=== PATIENT | male | born 1945 | race Caucasian/White ===

== ENCOUNTER → 2017-05-20 07:09 | Outpatient (CLI) | payer OTHER, SELFPAY ==
--- NOTE | 2017-05-20 07:23 | CT_ITS ---
STUDY: CT ABDOMEN AND PELVIS WITH AND WITHOUT CONTRAST REASON FOR EXAM: Male, 72 years old. Gross hematuria. Prior prostatectomy. RADIATION DOSAGE (If Supplied By Facility): CTDIvol = ( 19.66 ) mGy, DLP = ( 1839.60 ) mGycm TECHNIQUE: Transaxial images were obtained from the dome of the diaphragm to the symphysis pubis without oral contrast. 100 ml of Isovue 300 contrast was administered. Sagittal and coronal images were reconstructed. Individualized dose optimization techniques were used for this CT. COMPARISON: Comparison is made with prior examination dated June 23, 2012. FINDINGS: Minimal degree of bibasilar linear scarring. The visualized portions of the heart are within normal limits. A catheter is seen in the subcutaneous tissues overlying the plantar aspect of the thorax and abdominal wall entering the peritoneal cavity with the distal tip in the right hemipelvis.. This may represent a ventricular peritoneal shunt. There is a 1.4 cm x 2.4 cm well-defined rounded hypodensity in the peripheral superior aspect of the dome of the right lobe of liver. This was not present on prior examination. Stable small hepatic cysts. Multiple small gallstones are seen along the dependent portion of the gallbladder. Normal spleen. Normal pancreas. Normal bilateral adrenal glands. There is a 6.3 mm nonobstructive calculus in the midportion of the right kidney. A 2 mm calculus is seen in the inferior pole of the right kidney. Normal left kidney. Normal visualized stomach. Normal small intestine. There are multiple colonic diverticula consistent with diverticulosis. The appendix is visualized and appears normal. There is diffuse atherosclerotic calcification of the abdominal aorta and its major visceral branches, without a demonstrated aneurysm. Normal inferior vena cava. Normal retroperitoneum. Normal urinary bladder. There are prostatic calcifications. There is a right-sided inguinal hernia containing adipose tissue. There are degenerative changes of the visualized lumbar spine. Stable anterior listhesis of L4 on L5 without spondylolysis. CT/CT Abd/Pelvis W/WO Contrast IMPRESSION: Hepatic cysts. Nonobstructive right intrarenal calculi. Small gallstones. Electronically Signed: Arie Silva MD at 12:35 EST Tel [phone], Service support ,
[2017-05-20 07:41] LABS: CREATININE FINGERSTICK 1.1 mg/dL (0.70-1.30); EGFR FINGERSTICK > 60.0000 mL/min (>60)
== END ==
PROVIDERS: Family Provider Family Medicine; PCP Family Medicine; Visit Provider Nurse Practitioner Adult Health
DX: R31.0 Gross hematuria (principal)
CPT/HCPCS: 74178; Q9967

== ENCOUNTER → 2017-05-20 07:54 | Outpatient (CLI) | payer OTHER, SELFPAY ==
[2017-05-20 09:27] LABS: AST(SGOT) 20 U/L (15-37); Alanine Aminotransfer ALT/SGPT 32 U/L (16-61); Albumin, Serum 2.9 g/dL (3.2-5.0); Alkaline Phosphatase 145 U/L (45-117); Cholesterol 110 mg/dL (200); High Density Lipoprotein 36 mg/dL; PSA,Total- Diagnostic 0.05 ng/mL (0.0-4.0); Protein, Total 6.9 g/dL (6.4-8.2); Triglycerides 107 mg/dL; Very Low Density Lipoprotein 21 mg/dL (5-40)
== END ==
PROVIDERS: Physician Assistant Medical; Family Provider Family Medicine; PCP Family Medicine; Visit Provider Psychiatry & Neurology Neurology
DX: G60.3 Idiopathic progressive neuropathy (principal); G62.9 Polyneuropathy, unspecified; R53.83 Other fatigue; R73.9 Hyperglycemia, unspecified; Z12.5 Encounter for screening for malignant neoplasm of prostate
CPT/HCPCS: 36415; 80061; 80076; 84153

== ENCOUNTER 2017-07-05 08:22 | Day surgery (SDC) | payer OTHER, SELFPAY ==
[2017-07-05 08:47] VITALS: BP 125/74; PULSE 73; RESP 18; TEMP 36.4; O2SAT 94; BMI 34.6
--- NOTE | 2017-07-05 09:30 | RAD_ITS ---
STUDY: X-RAY - ABDOMEN/PELVIS REASON FOR EXAM: Male, 72 years old. History of kidney stone. TECHNIQUE: Two AP supine views of the abdomen and pelvis. COMPARISON: None. FINDINGS: A ventriculoperitoneal shunt tube is seen with the tip in the pelvis. There is an abundance of fecal material throughout the colon. There is a 6.3 mm calculus in the midportion of the right kidney. Normal soft tissue structures. There are diffuse degenerative changes of the visualized lumbar spine. Dextroscoliosis. RAD/Abdomen Single View IMPRESSION: 6.3 mm calculus in the midportion of the right kidney. Large amount of fecal material is seen in the colon. Electronically Signed: Arie Silva MD at 10:31 EDT Tel [phone], Service support ,
[2017-07-05] MEDS: Cefazolin 2 GM in 0.9% Normal Saline 100 ML IV (10:44)
--- NOTE | 2017-07-05 11:33 | PCM.IMDPSTOP ---
Immediate Post-Op Note Date of Procedure: 07/05/17 Primary Surgeon/Physician: Doyle Arizmendi afternoon babysitter: None Pre-Operative Diagnosis: Right ureteral and renal lithiasis, OAB Post-Operative Diagnosis: same Surgery/Procedure Performed:: cysto, Botox injection 100 IU's, Rt retro grade and ESWL of renal and ureteral stone Description of Surgical Findings:: as above Estimated Blood Loss: minimal Specimen's removed: none Drains: none Type of Anesthesia:: General - LMA Maegan Sacledo - Admit VTE Documentation VTE Present on Admission: No VTE Mechan Device Prophylaxis: SCD's VTE Pharm Prophylaxis ordered?: No
--- NOTE | 2017-07-05 11:36 | OP.PN_ITS ---
Immediate Post-Op Note Date of Procedure: 07/05/17 Primary Surgeon/Physician: Doyle Arizmendi parachute mender: None Pre-Operative Diagnosis: Right ureteral and renal lithiasis, OAB Post-Operative Diagnosis: same Surgery/Procedure Performed:: cysto, Botox injection 100 IU's, Rt retro grade and ESWL of renal and ureteral stone Description of Surgical Findings:: as above Estimated Blood Loss: minimal Specimen's removed: none Drains: none Type of Anesthesia:: General - LMA Maegan Salcedo - Admit VTE Documentation VTE Present on Admission: No VTE Mechan Device Prophylaxis: SCD's VTE Pharm Prophylaxis ordered?: No
--- NOTE | 2017-07-05 11:36 | PCM.DC.URO ---
Discharge Diet: No Restrictions - ENCOURAGE FLUIDS FOR FEW DAYS Discharge Activity: Return to Normal Activity, May Shower, - - EXPECT BLOOD IN URINE Call your doctor if your incision/area has: Foul Smelling Discharge Call your doctor if you observe: Fever of 101 or Higher, Inability to urinate Allergies/Adverse Reactions: Allergies lisinopril Adverse Reaction (Verified 06/19/17 08:54) Other Medications to take at Discharge Cyclobenzaprine [Flexeril] 10 mg PO TID PRN PRN 08/10/15 Ropinirole HCl [Requip] 3 mg PO 4X/DAY PRN 08/10/15 Ropinirole HCl [Ropinirole ER] 8 mg PO QHS 08/10/15 Carbidopa/Levodopa 25/100 [Sinemet] 1 - 2 tab PO QHS 10/10/16 Dutasteride [Avodart] 0.5 mg PO DAILY 10/10/16 Ibuprofen 600 mg PO PRN PRN 10/10/16 Pramipexole Di-HCl [Mirapex] 0.5 mg PO PRN PRN 10/10/16 Trospium Chloride [Sanctura] 20 mg PO DAILY 10/10/16 aspirin 81 mg tablet,delayed release 81 mg PO QDAY tab 06/17/17 nitroglycerin 0.4 mg sublingual tablet 0.4 mg SUBLINGUAL Q5M PRN 06/17/17 duloxetine 30 mg capsule,delayed release 60 mg PO DAILY cap 06/19/17 gabapentin 800 mg tablet PO 30 Days #60 06/19/17 atorvastatin 80 mg tablet 80 mg PO QHS #90 tab 06/25/17 carvedilol 12.5 mg tablet 12.5 mg PO BID #180 tab 06/25/17 isosorbide mononitrate 20 mg tablet 20 mg PO DAILY #90 tab 06/25/17 niacin (inositol niacinate) 500 mg capsule 500 mg PO DAILY #90 ea 06/25/17 Primary Care Physician: Darnell Bryant [Primary Care Provider] - Please Follow Up With: Jonnie High MD - [phone] When: CALL SOON FOR AN APPT IN FEW WEEKS When: [phone] TO PAGE
--- NOTE | 2017-07-05 12:04 | DCINST_ITS ---
Discharge Diet: No Restrictions - ENCOURAGE FLUIDS FOR FEW DAYS Discharge Activity: Return to Normal Activity, May Shower, - - EXPECT BLOOD IN URINE Call your doctor if your incision/area has: Foul Smelling Discharge Call your doctor if you observe: Fever of 101 or Higher, Inability to urinate Allergies/Adverse Reactions: Allergies lisinopril Adverse Reaction (Verified 06/19/17 08:54) Other Medications to take at Discharge Cyclobenzaprine [Flexeril] 10 mg PO TID PRN PRN 08/10/15 Ropinirole HCl [Requip] 3 mg PO 4X/DAY PRN 08/10/15 Ropinirole HCl [Ropinirole ER] 8 mg PO QHS 08/10/15 Carbidopa/Levodopa 25/100 [Sinemet] 1 - 2 tab PO QHS 10/10/16 Dutasteride [Avodart] 0.5 mg PO DAILY 10/10/16 Ibuprofen 600 mg PO PRN PRN 10/10/16 Pramipexole Di-HCl [Mirapex] 0.5 mg PO PRN PRN 10/10/16 Trospium Chloride [Sanctura] 20 mg PO DAILY 10/10/16 aspirin 81 mg tablet,delayed release 81 mg PO QDAY tab 06/17/17 nitroglycerin 0.4 mg sublingual tablet 0.4 mg SUBLINGUAL Q5M PRN 06/17/17 duloxetine 30 mg capsule,delayed release 60 mg PO DAILY cap 06/19/17 gabapentin 800 mg tablet PO 30 Days #60 06/19/17 atorvastatin 80 mg tablet 80 mg PO QHS #90 tab 06/25/17 carvedilol 12.5 mg tablet 12.5 mg PO BID #180 tab 06/25/17 isosorbide mononitrate 20 mg tablet 20 mg PO DAILY #90 tab 06/25/17 niacin (inositol niacinate) 500 mg capsule 500 mg PO DAILY #90 ea 06/25/17 Primary Care Physician: Darnell Bryant [Primary Care Provider] - Please Follow Up With: Jonnie High MD - [phone] When: CALL SOON FOR AN APPT IN FEW WEEKS When: [phone] TO PAGE
--- NOTE | 2017-07-05 12:06 | PCM.OP.BLANK ---
Operative Report Date of Procedure: 07/05/17 72-year-old male with gross hematuria, OAB, found to have ureteral and renal stone on the right. Here for resolution of all of the above problems. Procedure patient taken the operative is placed under general anesthesia per LMA by Dr. Salcedo and Robinson mendoza. He been preloaded with antibiotics. He is placed on the ESWL unit placed under general anesthesia per LMA. Is then placed lithotomy position prepped and draped in sterile technique. Cystoscopic exam showed a normal urethra. Once inside the bladder the bladder was drained urine was fairly clear. Botox was injected injected into the tracer muscle him to areas 1 cc each total of 100 IUs. At this point ESWL to be performed was able to visualize a stone on the right however the one on the in the ureter had dropped to distally. Subsequently doing cystoscopy stent was then placed on the right and was able to visualize a stone in be able to reach the lower ureteral stone with ESWL at this point the first stone was on the renal kidney was performed ESWL with this broken up and then attention was turned to the ureter the patient was moved and positioned so that this is reached in with 2000 shocks stone was essentially absent subsequent procedures. At this point stent was removed and patient was taken to recovery in stable condition. That is on this dictation on Devonte Martins
[2017-07-05 12:11] VITALS: BP 125/75; BP 158/93; PULSE 81; RESP 20; TEMP 36.1; O2SAT 100
[2017-07-05 12:15] VITALS: BP 125/75; BP 152/84; PULSE 76; RESP 18; O2SAT 99
[2017-07-05 12:30] VITALS: BP 125/75; BP 149/90; PULSE 74; RESP 18; O2SAT 97
[2017-07-05 12:38] VITALS: BP 125/75; BP 146/86; PULSE 74; RESP 18; TEMP 36.1; O2SAT 97
[2017-07-05 13:20] VITALS: BP 125/75
== END 2017-07-05 13:37 | disposition home or self-care (01) ==
LOC: SDC 08:24 → AC 08:24
PROVIDERS: Family Provider Family Medicine; PCP Family Medicine; Visit Provider Urology
PROC: (CPT 50590; principal; 2017-07-05 10:40)
DX: N20.2 Calculus of kidney with calculus of ureter (principal); N32.81 Overactive bladder; N39.41 Urge incontinence; Z79.899 Other long term (current) drug therapy; Z95.1 Presence of aortocoronary bypass graft; I10 Essential (primary) hypertension; Z86.14 Personal history of Methicillin resistant Staphylococcus aureus infection; M19.90 Unspecified osteoarthritis, unspecified site; R31.0 Gross hematuria; Z79.82 Long term (current) use of aspirin; I25.2 Old myocardial infarction; G25.81 Restless legs syndrome; E78.00 Pure hypercholesterolemia, unspecified
CPT/HCPCS: 50590; 52287; 74018; J7120; J0585; J2405

== ENCOUNTER → 2017-07-17 08:06 | Outpatient (CLI) | payer OTHER, SELFPAY ==
--- NOTE | 2017-07-17 08:09 | RAD_ITS ---
STUDY: X-RAY - ABDOMEN/PELVIS REASON FOR EXAM: Male, 72 years old. Prior kidney stone removal. TECHNIQUE: Two AP supine views of the abdomen and pelvis. COMPARISON: Comparison is made with prior examination of July 05, 2017. FINDINGS: A ventricular peritoneal shunt tube is in situ. The distal tip is in the pelvis. There is an abundance of fecal material throughout the colon. The visualized liver, spleen and kidneys are grossly normal in size and morphology. Normal soft tissue structures. Mild dextroscoliosis. RAD/Abdomen Single View IMPRESSION: Large amount of fecal material is seen in the colon. No abnormal calcification is seen overlying the kidney or course of the ureters. Electronically Signed: Arie Silva MD at 10:38 EDT Tel [phone], Service support ,
== END ==
PROVIDERS: Family Provider Family Medicine; PCP Family Medicine; Visit Provider Urology
DX: N20.0 Calculus of kidney (principal)
CPT/HCPCS: 74018

== ENCOUNTER → 2017-12-03 04:00 | Outpatient (REF) | payer OTHER, SELFPAY ==
[2017-12-03 09:38] LABS: Absolute Lymphocyte Count 2.49 X10^3/ul (0.83-4.51); Absolute Neutrophil Count 9.1 X10^3/uL (2.0-7.7); Basophil# 0.06 X10^3/uL; Basophil% 0.4 % (0-1); Eosinophil# 1.04 X10^3/uL; Eosinophils% 7.1 % (0-5); Hematocrit 28.7 % (40-54); Lymphocyte # 2.49 X10^3/ul (4.0); Lymphocyte % 17.1 % (19-41); Mean Corp Hgb Conc 31.4 g/gl (32-36); Mean Corpuscular Hgb 28.6 pg (27.0-32.0); Mean Corpuscular Volume 91.1 fL (80-94); Mean Platelet Vol. 8.7 fl (6.2-12.0); Monocyte# 1.46 X10^3/uL; Neutrophil # 9.09 X10^3/uL (2.7-7.7); Neutrophil % 62.6 % (47-70); Platelet Count 372 K/mm3 (150-450); RBC Distribution Width CV 14.8 % (11.6-14.6); RBC Distribution Width SD 48.7 fl (35.1-43.9); Red Blood Count 3.15 M/mm3 (4.6-6.2); White Blood Count 14.6 K/mm3 (4.4-11.0)
[2017-12-03 09:41] LABS: Anion Gap 10 (5-15); BUN 16 mg/dL (7-18); BUN/Creat Ratio 24.8 RATIO (10-20); Calcium,Total 7.9 mg/dL (8.5-10.1); Chloride 105 mmol/L (98-107); Creatinine, Serum 0.65 mg/dL (0.70-1.30); EST Glomerular Filtration Rate 130 mL/min (>60); Est Glom Filt Rate - Afr Amer 157 mL/min (>60); Glucose 96 mg/dL (74-106); Potassium 3.7 mmol/L (3.5-5.1); Sodium Level 140 mmol/L (136-145)
[2017-12-03 09:46] LABS: POSITIVE COUNT YES; POSITIVE DIFFERENTIAL NO; POSITIVE MORPHOLOGY YES
[2017-12-05 14:16] LABS: Pathologist Review Reviewed
== END ==
LOC: OLS.AVED 04:00
PROVIDERS: Visit Provider Family Medicine
DX: D64.9 Anemia, unspecified (principal); R53.83 Other fatigue; I10 Essential (primary) hypertension
CPT/HCPCS: 36415; 80048; 85025

== ENCOUNTER → 2017-12-17 07:25 | Outpatient (REF) | payer OTHER, SELFPAY ==
[2017-12-17 09:50] LABS: Absolute Lymphocyte Count 2.65 X10^3/ul (0.83-4.51); Absolute Neutrophil Count 6.6 X10^3/uL (2.0-7.7); Basophil# 0.03 X10^3/uL; Basophil% 0.3 % (0-1); Eosinophil# 0.34 X10^3/uL; Eosinophils% 3.2 % (0-5); Hematocrit 39.1 % (40-54); Hemoglobin 11.8 g/dl (13.0-16.5); Lymphocyte # 2.65 X10^3/ul (4.0); Lymphocyte % 25.1 % (19-41); Mean Corp Hgb Conc 30.2 g/gl (32-36); Mean Corpuscular Hgb 28.4 pg (27.0-32.0); Mean Corpuscular Volume 94.2 fL (80-94); Mean Platelet Vol. 8.9 fl (6.2-12.0); Monocyte# 0.92 X10^3/uL; Monocyte% 8.7 % (0-10); Neutrophil % 62.5 % (47-70); Platelet Count 360 K/mm3 (150-450); RBC Distribution Width CV 16.2 % (11.6-14.6); Red Blood Count 4.15 M/mm3 (4.6-6.2); White Blood Count 10.6 K/mm3 (4.4-11.0)
[2017-12-17 09:51] LABS: POSITIVE COUNT NO; POSITIVE DIFFERENTIAL NO; POSITIVE MORPHOLOGY NO
[2017-12-17 09:52] LABS: Anion Gap 9 (5-15); BUN 18 mg/dL (7-18); BUN/Creat Ratio 23.6 RATIO (10-20); Calcium,Total 8.7 mg/dL (8.5-10.1); Chloride 105 mmol/L (98-107); Creatinine, Serum 0.76 mg/dL (0.70-1.30); EST Glomerular Filtration Rate 107 mL/min (>60); Est Glom Filt Rate - Afr Amer 130 mL/min (>60); Glucose 93 mg/dL (74-106); Potassium 4.3 mmol/L (3.5-5.1); Sodium Level 140 mmol/L (136-145)
== END ==
LOC: OLS.AVED 07:25
PROVIDERS: Visit Provider Family Medicine
DX: D64.9 Anemia, unspecified (principal); R53.83 Other fatigue; I10 Essential (primary) hypertension
CPT/HCPCS: 36415; 80048; 85025

== ENCOUNTER 2018-02-07 07:03 | Day surgery (SDC) | payer OTHER, SELFPAY ==
[2018-02-07] VITALS (10 sets, daily range): BP systolic 84–121; BP diastolic 51–79; PULSE 72–78; RESP 11–16; TEMP 36.2–36.6; O2SAT 95–100; BMI 34.4
--- NOTE | 2018-02-07 09:46 | DCINST_ITS ---
Discharge Diet: Light diet - advance as tolerated Discharge Activity: May not drive while taking narcotic pain medications., May Shower Instructions: OnabotulinumtoxinA Solution for injection Allergies/Adverse Reactions: Allergies lisinopril Adverse Reaction (Verified 01/31/18 14:45) Other Medications to take at Discharge Cyclobenzaprine [Flexeril] 10 mg PO TID PRN PRN 08/10/15 Ropinirole HCl [Requip] 3 mg PO 4X/DAY PRN 08/10/15 Ropinirole HCl [Ropinirole ER] 8 mg PO QHS 08/10/15 Carbidopa/Levodopa 25/100 [Sinemet] 1 - 2 tab PO QHS 10/10/16 Dutasteride [Avodart] 0.5 mg PO DAILY 10/10/16 Ibuprofen 600 mg PO PRN PRN 10/10/16 Pramipexole Di-HCl [Mirapex] 0.5 mg PO PRN PRN 10/10/16 Trospium Chloride [Sanctura] 20 mg PO DAILY 10/10/16 aspirin 81 mg tablet,delayed release 81 mg PO QDAY tab 06/17/17 nitroglycerin 0.4 mg sublingual tablet 0.4 mg SUBLINGUAL Q5M PRN 06/17/17 duloxetine 30 mg capsule,delayed release 60 mg PO DAILY cap 06/19/17 gabapentin 800 mg tablet 800 mg PO QHS 30 Days #60 06/19/17 atorvastatin 80 mg tablet 80 mg PO QHS #90 tab 06/25/17 carvedilol 12.5 mg tablet 12.5 mg PO BID #180 tab 06/25/17 isosorbide mononitrate 20 mg tablet 20 mg PO DAILY #90 tab 06/25/17 niacin (inositol niacinate) 500 mg capsule 500 mg PO DAILY #90 ea 06/25/17 losartan 50 mg tablet 50 mg PO QDAY #90 tab 10/29/17 Primary Care Physician: Darnell Bryant [Primary Care Provider] - Test Results: Test results from this visit will be discussed in further detail at your follow- up appointment, if applicable. Please Follow Up With: Jonnie High MD When: in 4 weeks, please call to make an appointment.
[2018-02-07] MEDS: Lidocaine Jelly 2% 20 ML Syringe (URO-JET) 20 APPLIC (09:52)
--- NOTE | 2018-02-07 10:00 | OP.PCM_ITS ---
Report of Operation Date of Procedure: 02/07/18 Pre-Operative Diagnosis: Overactive bladder and urgency Post-Operative Diagnosis: Same Surgery/Procedure Performed:: Cystoscopy injection of Botox in the bladder 150 units Description of Surgical Findings:: 72-year-old male was taken back to the operating room after smooth induction of MAC local he is placed in dorsal lithotomy position, the penis and testicles are prepped and draped in usual sterile fashion, the penis was uncircumcised, infiltrated like lidocaine jelly into the urethra, I then went into the urethra with a 21 [place] rigid cystourethroscope, the entire length the urethra is normal, the sphincter was intact, he did have a well resected prostate but no obstructive tissue, inside the bladder was mild to moderate trabeculation throughout the bladder the trigone was normal, no tumors no tumors or stones are seen within the bladder the mucosa was normal. I then had 150 units of Botox prepared in the back table injected the first half of that with syringe about half a mL in each site injected at about 15 site in the back of the bladder and then the second half of the aliquot of Botox was injected another 15 sites in the back of the bladder after the completion of the injection of Botox in the bladder we used 150 units of Botox for the complete injection the bladder was drained the anesthetic is currently being reversed plan to see him back in about a month for checkup. Type of Anesthesia:: General Drains: none - Admit VTE Documentation VTE Present on Admission: No VTE Mechan Device Prophylaxis: SCD's
[2018-02-07] MEDS: Cefazolin 2 GM in 0.9% Normal Saline 100 ML IV (10:08)
== END 2018-02-07 11:29 | disposition home or self-care (01) ==
LOC: SDC 07:04 → AC 07:06 → ACINP 07:26 → AC 07:27
PROVIDERS: Family Provider Family Medicine; PCP Family Medicine; Referring Provider Urology; Visit Provider Urology
PROC: 3E0K8GC Introduction of Other Therapeutic Substance into Genitourinary Tract, Via Natural or Artificial Opening Endoscopic (ICD-10-PCS; CPT 52287; principal; 2018-02-07 09:25)
DX: N32.81 Overactive bladder (principal); R39.15 Urgency of urination; N32.89 Other specified disorders of bladder; I10 Essential (primary) hypertension; I25.2 Old myocardial infarction; Z95.1 Presence of aortocoronary bypass graft; Z79.899 Other long term (current) drug therapy; Z79.82 Long term (current) use of aspirin; G25.81 Restless legs syndrome; G91.9 Hydrocephalus, unspecified; Z98.2 Presence of cerebrospinal fluid drainage device; E78.00 Pure hypercholesterolemia, unspecified; M15.0 Primary generalized (osteo)arthritis; I25.9 Chronic ischemic heart disease, unspecified
CPT/HCPCS: 52287; J7120; J0585; J3490

== ENCOUNTER → 2018-05-29 08:46 | Outpatient (CLI) | payer OTHER, SELFPAY ==
[2018-05-26 13:15] VITALS: BMI 36.6
[2018-05-29 09:50] LABS: AST(SGOT) 17 U/L (15-37); Alanine Aminotransfer ALT/SGPT 19 U/L (16-61); Albumin, Serum 3.4 g/dL (3.2-5.0); Alkaline Phosphatase 204 U/L (45-117); Bilirubin, Direct 0.14 mg/dL (0.00-0.30); Cholesterol 122 mg/dL (200); Globulin 3.3 g/dL (2.2-4.2); High Density Lipoprotein 53 mg/dL; Protein, Total 6.7 g/dL (6.4-8.2); Triglycerides 71 mg/dL; Very Low Density Lipoprotein 14 mg/dL (5-40)
== END ==
PROVIDERS: Family Provider Family Medicine; PCP Family Medicine; Referring Provider Internal Medicine Cardiovascular Disease; Visit Provider Internal Medicine Cardiovascular Disease
DX: E78.00 Pure hypercholesterolemia, unspecified (principal)
CPT/HCPCS: 36415; 80061; 80076

== ENCOUNTER 2018-09-24 08:15 | Outpatient (RCR) | payer OTHER, SELFPAY ==
[2018-05-26 13:15] VITALS: BMI 36.6
[2018-09-09 14:39] VITALS: BMI 37.3
--- NOTE | 2018-09-09 16:23 | PCM.WC.HP ---
(1) Bilateral lower extremity edema Status: Chronic Code(s): R60.0 - Localized edema (2) Ulcer of ankle Status: Chronic Code(s): L97.309 - Non-pressure chronic ulcer of unspecified ankle with unspecified severity Comment: right lateral ankle (3) Ulcer of left medial lower extremity Status: Chronic Code(s): L97.829 - Non-pressure chronic ulcer of other part of left lower leg with unspecified severity History of Present Illness Date of Service: 09/09/18 Chief Complaint: Bilateral lower leg edema History of Wound: Patient had been hospitalized at 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 His bilateral lower legs became very edematous and he started to develop multiple blisters over his ower legs and feet. His legs would ooze fluid. His has been placing triple antiobiotic ointment and NAHOMI wrap to his lower extermities. He was referred to the wound center from his home health agency for edema management. 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 Surgical History: coronary bypass surgery Allergies/Adverse Reactions: Allergies lisinopril Adverse Reaction (Verified 05/26/18 13:15) Other Home Medications: Ambulatory Orders Medication Instructions Recorded Ropinirole HCl [Requip] 3 mg PO 4X/DAY PRN 08/10/15 Ropinirole HCl [Ropinirole ER] 8 mg PO QHS 08/10/15 cycloBENZAPRine HCl [Flexeril] 10 mg PO TID PRN PRN 08/10/15 Carbidopa/Levodopa 25/100 [Sinemet] 1 - 2 tab PO QHS 10/10/16 Dutasteride [Avodart] 0.5 mg PO DAILY 10/10/16 Ibuprofen 600 mg PO PRN PRN 10/10/16 Pramipexole Di-HCl [Mirapex] 0.5 mg PO PRN PRN 10/10/16 Trospium Chloride [Sanctura] 20 mg PO DAILY 10/10/16 aspirin 81 mg tablet,delayed 81 mg PO QDAY tab 06/17/17 release nitroglycerin 0.4 mg sublingual 0.4 mg SUBLINGUAL Q5M PRN 06/17/17 tablet gabapentin 800 mg tablet 800 mg PO QHS 30 Days #60 06/19/17 atorvastatin 80 mg tablet 80 mg PO QHS #90 tab 05/01/18 carvedilol 12.5 mg tablet 12.5 mg PO BID #180 tab 05/01/18 niacin (inositol niacinate) 500 mg 500 mg PO DAILY #90 ea 05/01/18 capsule isosorbide mononitrate 20 mg tablet 20 mg PO DAILY #90 tab 07/14/18 losartan 50 mg tablet 50 mg PO QDAY #90 tab 09/11/18 Smoking Status: Never smoker Review of Systems Constitutional: Denies: Chills, Fever, Weight Change Eyes: Denies: Pain, Vision Change HEENT: Reports: Difficulty Hearing Cardiovascular: Denies: Chest Pain, Palpitations Respiratory: Denies: Cough, Shortness of Breath Gastrointestinal: Denies: Diarrhea, Nausea, Vomiting Musculoskeletal: Reports: Leg Pain - bilateral lower leg pain due to the edema Skin: Reports: Wounds - Multiple blisters over lower legs bilaterally, some clear drainage. Right lateral ankle ulcer that is opened and left lower medial ucler Neurological: Denies: Blurred vision, Double vision, Change in Speech Psychiatric: Denies: Depression Endocrine: Denies: Heat/ Cold Intolerance, Polydipsia, Polyuria - Physical Exam General: Alert, Oriented x3, Cooperative HEENT: Atraumatic Oral: Moist Mucosa Lungs: Clear to auscultation, Normal air movement, No wheeze, No rales Cardiovascular: Regular rate, Regular Rhythm Abdomen: Bowel Sounds Present, Soft Extremities: Edema - +3-4 edema of bilateral lower legs Skin: Ulcer/ Wound - Ulcer of left lower medial leg and ulcer of right lateral ankle Wound Measurements and Assessment WC - Nurse 1 - General Ulcer Measurement Start: 09/09/18 14:39 Freq: Status: Active Protocol: Activity Type Activity Date Activity User E-Sign Co-Sign Detail Recorded Client Recorded Date Recorded By Document 09/09/18 14:39 [id number] 09/09/18 15:28 09/09/18 14:39 Wound Center Nurse 1 [Edema Assessment] -Lower Limb Edema Present Yes -Right Calf (cm) 40.0 -Right Ankle (cm) 26.5 -Left Calf (cm) 39.2 -Left Ankle (cm) 27.5 WC - Nurse 2 - General Ulcer CM Notes Start: 09/09/18 14:39 Freq: Status: Active Protocol: Activity Type Activity Date Activity User E-Sign Co-Sign Detail Recorded Client Recorded Date Recorded By Document 09/09/18 16:10 [id number] 09/09/18 16:12 09/09/18 16:10 Wound Center Nurse 2 [Procedure/Treatment] 2-right medial posterior LE -Time 16:11 -Correct Patient Yes -Correct Side, Site, Position Yes -Correct Procedure Yes -Procedure Performed Yes -Type of Procedure Debridement -Clinical Debridement Subcutaneous -Post Debridement Size (cm) - Length 1.3 -Post Debridement Size (cm) - Width 2.5 -Post Debridement Size (cm) - Depth 0.2 -Total Square Cm 3.25 -Wound/Ulcer Outcome Not Healed -Ulcer Cleansing Rinsed/ Irrigated with Saline -Foul Odor after Cleansing No -Bioengineered Tissue No -Bleeding Controlled with Pressure -Offloading No -Treatment Response Procedure Tolerated Well 1-right lateral ankle -Time 16:10 -Correct Patient Yes -Correct Side, Site, Position Yes -Correct Procedure Yes -Procedure Performed Yes -Type of Procedure Debridement -Clinical Debridement Subcutaneous -Post Debridement Size (cm) - Length 3.2 -Post Debridement Size (cm) - Width 1.3 -Post Debridement Size (cm) - Depth 0.2 -Total Square Cm 4.16 -Wound/Ulcer Outcome Not Healed -Ulcer Cleansing Rinsed/ Irrigated with Saline -Foul Odor after Cleansing No -Bioengineered Tissue No -Bleeding Controlled with Pressure -Offloading No -Treatment Response Procedure Tolerated Well [See Physician Procedure note for Specifics] Pain Scale: 0-10 Numeric [Pain] -Is Patient Pain Free? Yes Musculoskeletal: Tenderness - Left shoulder which has a brace on it Neurological: Neuro grossly intact Psych/Mental Status: Normal Affect, Appropriate Debridement Note Post-Debridement Measurements/Treatment WC - Nurse 2 - General Ulcer CM Notes Start: 09/09/18 14:39 Freq: Status: Active Protocol: Activity Type Activity Date Activity User E-Sign Co-Sign Detail Recorded Client Recorded Date Recorded By Document 09/09/18 16:10 [email or web address] [email or web address] 09/09/18 16:12 [email or web address] 09/09/18 16:10 Wound Center Nurse 2 2-right medial posterior LE -Time 16:11 -Correct Patient Yes -Correct Side, Site, Position Yes -Correct Procedure Yes -Procedure Performed Yes -Type of Procedure Debridement -Clinical Debridement Subcutaneous -Post Debridement Size (cm) - Length 1.3 -Post Debridement Size (cm) - Width 2.5 -Post Debridement Size (cm) - Depth 0.2 -Total Square Cm 3.25 -Wound/Ulcer Outcome Not Healed -Ulcer Cleansing Rinsed/ Irrigated with Saline -Foul Odor after Cleansing No -Bioengineered Tissue No -Bleeding Controlled with Pressure -Offloading No -Treatment Response Procedure Tolerated Well 1-right lateral ankle -Time 16:10 -Correct Patient Yes -Correct Side, Site, Position Yes -Correct Procedure Yes -Procedure Performed Yes -Type of Procedure Debridement -Clinical Debridement Subcutaneous -Post Debridement Size (cm) - Length 3.2 -Post Debridement Size (cm) - Width 1.3 -Post Debridement Size (cm) - Depth 0.2 -Total Square Cm 4.16 -Wound/Ulcer Outcome Not Healed -Ulcer Cleansing Rinsed/ Irrigated with Saline -Foul Odor after Cleansing No -Bioengineered Tissue No -Bleeding Controlled with Pressure -Offloading No -Treatment Response Procedure Tolerated Well Pain Scale: 0-10 Numeric Is Patient Pain Free? Yes Wound debrided: right lateral ankle Laterality: Right Type of Debridement: Excisional debridement Anesthesia Used: 4% Lidocaine Solution Depth: Down to and including healthy tissue, in the subcutaneous layer Percentage of wound debrided: 100 Instrument Used: 5mm curette Tissue Removed: Subcuataneous tissue and slough Severity: Fat Layer Exposed Amount of bleeding with debridement: Mild Bleeding Controlled with: Pressure, Compression and gauze Patient tolerated procedure well - Additional Wound Wound debrided: Left medial lower leg Laterality: Left Type of Debridement: Excisional debridement Anesthesia Used: 4% Lidocaine Solution Depth: Down to and including healthy tissue, in the subcutaneous layer Percentage of wound debrided: 100 Instrument Used: 5mm curette Tissue Removed: Subcutaneous tissue and slough Severity: Fat Layer Exposed Amount of bleeding with debridement: Mild Bleeding Controlled with: Pressure Patient tolerated procedure: Patient tolerated procedure well Assessment/Plan Assessment: 1. Bilateral lower extremity edema. 2. Ulcer of right lateral ankle. 3. Ulcer of left medial lower extremity Plan: Patient was seen and evaluated in the wound center today. A subcutaneous debridement was performed today and the patient tolerated it well. Plan of care discussed with the patient and his . Will have the patient's stop using triple antibiotic ointment on bilateral lower legs and will have her start using collogen hydrogel with adaptic daily and then wrap with NAHOMI wraps. Will obtain vascular studies. Patient would benefit form 3M double wraps but need to have the results from the vascular studies before they can be applied. Patient has home health through [facility]. Follow up in one week. Code Visit Office Visits / Consults: [id number] OV L4 Est - 25 111xxx-113xx: [id number] Cande subq tissue 20 sq cm/<
--- NOTE | 2018-09-09 16:38 | HP.PCM_ITS ---
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 His bilateral lower legs became very edematous and he started to develop multiple blisters over his ower legs and feet. His legs would ooze fluid. His has been placing triple antiobiotic ointment and NAHOMI wrap to his lower extermities. He was referred to the wound center from his home health agency for edema management. 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 Surgical History: coronary bypass surgery Allergies/Adverse Reactions: Allergies lisinopril Adverse Reaction (Verified 05/26/18 13:15) Other Home Medications: Ambulatory Orders Medication Instructions Recorded Ropinirole HCl [Requip] 3 mg PO 4X/DAY PRN 08/10/15 Ropinirole HCl [Ropinirole ER] 8 mg PO QHS 08/10/15 cycloBENZAPRine HCl [Flexeril] 10 mg PO TID PRN PRN 08/10/15 Carbidopa/Levodopa 25/100 [Sinemet] 1 - 2 tab PO QHS 10/10/16 Dutasteride [Avodart] 0.5 mg PO DAILY 10/10/16 Ibuprofen 600 mg PO PRN PRN 10/10/16 Pramipexole Di-HCl [Mirapex] 0.5 mg PO PRN PRN 10/10/16 Trospium Chloride [Sanctura] 20 mg PO DAILY 10/10/16 aspirin 81 mg tablet,delayed 81 mg PO QDAY tab 06/17/17 release nitroglycerin 0.4 mg sublingual 0.4 mg SUBLINGUAL Q5M PRN 06/17/17 tablet gabapentin 800 mg tablet 800 mg PO QHS 30 Days #60 06/19/17 atorvastatin 80 mg tablet 80 mg PO QHS #90 tab 05/01/18 carvedilol 12.5 mg tablet 12.5 mg PO BID #180 tab 05/01/18 niacin (inositol niacinate) 500 mg 500 mg PO DAILY #90 ea 05/01/18 capsule isosorbide mononitrate 20 mg tablet 20 mg PO DAILY #90 tab 07/14/18 losartan 50 mg tablet 50 mg PO QDAY #90 tab 09/11/18 Smoking Status: Never smoker Review of Systems Constitutional: Denies: Chills, Fever, Weight Change Eyes: Denies: Pain, Vision Change HEENT: Reports: Difficulty Hearing Cardiovascular: Denies: Chest Pain, Palpitations Respiratory: Denies: Cough, Shortness of Breath Gastrointestinal: Denies: Diarrhea, Nausea, Vomiting Musculoskeletal: Reports: Leg Pain - bilateral lower leg pain due to the edema Skin: Reports: Wounds - Multiple blisters over lower legs bilaterally, some clear drainage. Right lateral ankle ulcer that is opened and left lower medial ucler Neurological: Denies: Blurred vision, Double vision, Change in Speech Psychiatric: Denies: Depression Endocrine: Denies: Heat/ Cold Intolerance, Polydipsia, Polyuria - Physical Exam General: Alert, Oriented x3, Cooperative HEENT: Atraumatic Oral: Moist Mucosa Lungs: Clear to auscultation, Normal air movement, No wheeze, No rales Cardiovascular: Regular rate, Regular Rhythm Abdomen: Bowel Sounds Present, Soft Extremities: Edema - +3-4 edema of bilateral lower legs Skin: Ulcer/ Wound - Ulcer of left lower medial leg and ulcer of right lateral ankle Wound Measurements and Assessment WC - Nurse 1 - General Ulcer Measurement Start: 09/09/18 14:39 Freq: Status: Active Protocol: Activity Type Activity Date Activity User E-Sign Co-Sign Detail Recorded Client Recorded Date Recorded By Document 09/09/18 14:39 [id number] 09/09/18 15:28 09/09/18 14:39 Wound Center Nurse 1 [Edema Assessment] -Lower Limb Edema Present Yes -Right Calf (cm) 40.0 -Right Ankle (cm) 26.5 -Left Calf (cm) 39.2 -Left Ankle (cm) 27.5 WC - Nurse 2 - General Ulcer CM Notes Start: 09/09/18 14:39 Freq: Status: Active Protocol: Activity Type Activity Date Activity User E-Sign Co-Sign Detail Recorded Client Recorded Date Recorded By Document 09/09/18 16:10 [id number] 09/09/18 16:12 09/09/18 16:10 Wound Center Nurse 2 [Procedure/Treatment] 2-right medial posterior LE -Time 16:11 -Correct Patient Yes -Correct Side, Site, Position Yes -Correct Procedure Yes -Procedure Performed Yes -Type of Procedure Debridement -Clinical Debridement Subcutaneous -Post Debridement Size (cm) - Length 1.3 -Post Debridement Size (cm) - Width 2.5 -Post Debridement Size (cm) - Depth 0.2 -Total Square Cm 3.25 -Wound/Ulcer Outcome Not Healed -Ulcer Cleansing Rinsed/ Irrigated with Saline -Foul Odor after Cleansing No -Bioengineered Tissue No -Bleeding Controlled with Pressure -Offloading No -Treatment Response Procedure Tolerated Well 1-right lateral ankle -Time 16:10 -Correct Patient Yes -Correct Side, Site, Position Yes -Correct Procedure Yes -Procedure Performed Yes -Type of Procedure Debridement -Clinical Debridement Subcutaneous -Post Debridement Size (cm) - Length 3.2 -Post Debridement Size (cm) - Width 1.3 -Post Debridement Size (cm) - Depth 0.2 -Total Square Cm 4.16 -Wound/Ulcer Outcome Not Healed -Ulcer Cleansing Rinsed/ Irrigated with Saline -Foul Odor after Cleansing No -Bioengineered Tissue No -Bleeding Controlled with Pressure -Offloading No -Treatment Response Procedure Tolerated Well [See Physician Procedure note for Specifics] Pain Scale: 0-10 Numeric [Pain] -Is Patient Pain Free? Yes Musculoskeletal: Tenderness - Left shoulder which has a brace on it Neurological: Neuro grossly intact Psych/Mental Status: Normal Affect, Appropriate Debridement Note Post-Debridement Measurements/Treatment WC - Nurse 2 - General Ulcer CM Notes Start: 09/09/18 14:39 Freq: Status: Active Protocol: Activity Type Activity Date Activity User E-Sign Co-Sign Detail Recorded Client Recorded Date Recorded By Document 09/09/18 16:10 [email or web address] [id number] 09/09/18 16:12 [email or web address] 09/09/18 16:10 Wound Center Nurse 2 2-right medial posterior LE -Time 16:11 -Correct Patient Yes -Correct Side, Site, Position Yes -Correct Procedure Yes -Procedure Performed Yes -Type of Procedure Debridement -Clinical Debridement Subcutaneous -Post Debridement Size (cm) - Length 1.3 -Post Debridement Size (cm) - Width 2.5 -Post Debridement Size (cm) - Depth 0.2 -Total Square Cm 3.25 -Wound/Ulcer Outcome Not Healed -Ulcer Cleansing Rinsed/ Irrigated with Saline -Foul Odor after Cleansing No -Bioengineered Tissue No -Bleeding Controlled with Pressure -Offloading No -Treatment Response Procedure Tolerated Well 1-right lateral ankle -Time 16:10 -Correct Patient Yes -Correct Side, Site, Position Yes -Correct Procedure Yes -Procedure Performed Yes -Type of Procedure Debridement -Clinical Debridement Subcutaneous -Post Debridement Size (cm) - Length 3.2 -Post Debridement Size (cm) - Width 1.3 -Post Debridement Size (cm) - Depth 0.2 -Total Square Cm 4.16 -Wound/Ulcer Outcome Not Healed -Ulcer Cleansing Rinsed/ Irrigated with Saline -Foul Odor after Cleansing No -Bioengineered Tissue No -Bleeding Controlled with Pressure -Offloading No -Treatment Response Procedure Tolerated Well Pain Scale: 0-10 Numeric Is Patient Pain Free? Yes Wound debrided: right lateral ankle Laterality: Right Type of Debridement: Excisional debridement Anesthesia Used: 4% Lidocaine Solution Depth: Down to and including healthy tissue, in the subcutaneous layer Percentage of wound debrided: 100 Instrument Used: 5mm curette Tissue Removed: Subcuataneous tissue and slough Severity: Fat Layer Exposed Amount of bleeding with debridement: Mild Bleeding Controlled with: Pressure, Compression and gauze Patient tolerated procedure well - Additional Wound Wound debrided: Left medial lower leg Laterality: Left Type of Debridement: Excisional debridement Anesthesia Used: 4% Lidocaine Solution Depth: Down to and including healthy tissue, in the subcutaneous layer Percentage of wound debrided: 100 Instrument Used: 5mm curette Tissue Removed: Subcutaneous tissue and slough Severity: Fat Layer Exposed Amount of bleeding with debridement: Mild Bleeding Controlled with: Pressure Patient tolerated procedure: Patient tolerated procedure well Assessment/Plan Assessment: 1. Bilateral lower extremity edema. 2. Ulcer of right lateral ankle. 3. Ulcer of left medial lower extremity Plan: Patient was seen and evaluated in the wound center today. A subcutaneous debridement was performed today and the patient tolerated it well. Plan of care discussed with the patient and his . Will have the patient's stop using triple antibiotic ointment on bilateral lower legs and will have her start using collogen hydrogel with adaptic daily and then wrap with NAHOMI wraps. Will obtain vascular studies. Patient would benefit form 3M double wraps but need to have the results from the vascular studies before they can be applied. Patient has home health through [facility]. Follow up in one week. Code Visit Office Visits / Consults: [id number] OV L4 Est - 25 [id number]: [id number] Cande subq tissue 20 sq cm/<
[2018-09-17 11:03] VITALS: BP 147/90; PULSE 77; RESP 16; TEMP 36.7; BMI 37.3
--- NOTE | 2018-09-17 12:49 | ART_ITS ---
Reason For Study: PVD Procedure A bilateral lower extremity continuous wave Doppler with analog waveform analysis,segmental pressures,and ankle brachial indexes without exercise. Left Segmental Pressures Left thigh = >254mmHg. Left calf = 112mmHg. Left posterior tibial artery = 125mmHg. Left dorsalis pedis artery = 117mmHg. Left digit = 87 mmHg. The left dorsalis pedis waveforms are biphasic. The left posterior tibial artery waveforms are biphasic. Right Segmental Pressures Right brachial= 159mmHg. Right thigh = >254mmHg. Right calf = 130mmHg. Right posterior tibial artery = 124mmHg. Right dorsalis pedis artery = 132mmHg. Right digit = 68 mmHg. The right dorsalis pedis waveforms are biphasic. The right posterior tibial artery waveforms are biphasic. Indices The right ankle brachial index by the dorsalis pedis is 0.83. The right ankle brachial index by the posterior tibial artery is 0.78. The right digital-brachial index is 0.43. The left ankle brachial index by the dorsalis pedis is 0.74. The left ankle brachial index by the posterior tibial artery is 0.79. The left digital-brachial index is 0.55. Interpretation Summary Biphasic Doppler waveforms are noted at ankle levels bilaterally. Pulse-volume recording waveform amplitudes are satisfactory at low-thigh, calf, and ankle levels bilaterally, but diminished at digital level bilaterally. The resting right ankle-brachial index is mildly diminished. The resting left ankle-brachial index is moderately diminished. The right digital-brachial index is moderately diminished. The left digital-brachial index is mildly diminished. 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 Ordering Physician: Carlie Marina Referring Physician: Darnell Bryant MD Performed By: Fartun Smith RVT
--- NOTE | 2018-09-17 12:49 | PN.PCM_ITS ---
(1) Bilateral lower extremity edema Status: Chronic Current Visit: Yes Code(s): R60.0 - Localized edema (2) Ulcer of ankle Status: Chronic Current Visit: Yes Code(s): L97.309 - Non-pressure chronic u lcer of unspecified ankle with unspecified severity Comment: right lateral ankle (3) Ulcer of right medial lower extremity Status: Acute Current Visit: Yes Code(s): L97.819 - Non-pressure chronic ulcer of other part of right lower leg with unspecified severity (4) Ulcer of left medial lower extremity Status: Chronic Current Visit: Yes Code(s): L97.829 - Non-pressure chronic ulcer of other part of left lower leg with unspecified severity (5) Ulcer of left medial lower extremity, limited to breakdown of skin Status: Acute Current Visit: Yes Code(s): L97.821 - Non-pressure chronic ulcer of other part of left lower leg limited to breakdown of skin Type of Wound Date of Service: 09/17/18 Chief Complaint: Bilateral lower leg edema History of Wound: Patient had been hospitalized at [facility] 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 His bilateral lower legs became very edematous and he started to develop multiple blisters over his ower legs and feet. His legs would ooze fluid. His has been placing triple antiobiotic ointment and NAHOMI wrap to his lower extermities. He was referred to the wound center from his home health agency for edema management. Progress of Wound: Some areas have improved but there are new areas with multi ple blisters that have formed. - Physical Exam Vital Signs Temp Pulse Resp BP 98.0 F 77 16 147/90 H 09/17/18 11:03 09/17/18 11:03 09/17/18 11:03 09/17/18 11:03 General: Alert, Oriented x3, Cooperative HEENT: Atraumatic Oral: Moist Mucosa Lungs: Normal air movement Cardiovascular: Regular rate Extremities: Capillary Refill Less than 3 Seconds, Diminished Peripheral Pulses, Edema - +3 edema bilaterally with new blisters forming from the edema Skin: Ulcer/ Wound - Multiple open areas over bilateral lower legs Wound Measurements and Assessment WC - Nurse 1 - General Ulcer Measurement Start: 09/09/18 14:39 Freq: Status: Active Protocol: Activity Type Activity Date Activity User E-Sign Co-Sign Detail Recorded Client Recorded Date Recorded By Document 09/17/18 11:03 [id number] 09/17/18 11:13 09/17/18 11:03 Wound Center Nurse 1 [Ulcer Assessment] #4 Right medial LE -Combined with other wound No -Current Size (cm) - Length 2.8 -Current Size (cm) - Width 3.6 -Current Size (cm) - Depth 0.1 -Total Square Cm 10.08 -Date of Last Picture (Recall this 09/17/18 field) -Photo Taken Yes -Epithelialization None Present -Tunneling No -Undermining/Tunneling No -Circular Undermining No -Exudate Amt Medium -Exudate Type Serosanguineous -Wound Margin Distinct, Outline Attached -Granulation Amt Large (67-100%) -Granulation Quality Pale,[place] -Slough/Fibrin Yes -Necrosis Amt None Present (0 %) -Necrotic Tissue Type Adherent Slough -Structure Exposed None/Limited to Skin Breakdown -Texture (Alyse-wound Skin Appearance) No Abnormality, Assessed -Moisture (Alyse-wound Skin Appearance No Abnormality, ) Assessed -Color (Alyse-wound Skin Appearance) Erythema -Temperature (Alyse-wound Skin No Abnormality Appearance) (Pt Warm) -Tenderness on Palpation (Alyse-wound Yes Skin Appearance) -Ulcer Cleansing Rinsed/ Irrigated with Saline -Foul Odor after Cleansing No -Anesthetic Used 5% Lidocaine Gel #3 right dexter cluster -Combined with other wound No -Current Size (cm) - Length 2.7 -Current Size (cm) - Width 4.2 -Current Size (cm) - Depth 0.1 -Total Square Cm 11.34 -Epithelialization None Present -Tunneling No -Undermining/Tunneling No -Circular Undermining No -Exudate Amt Medium -Exudate Type Serosanguineous -Wound Margin Distinct, Outline Attached -Granulation Amt Medium (34-66%) -Granulation Quality Pale,[place] -Necrosis Amt None Present (0 %) -Necrotic Tissue Type Adherent Slough -Structure Exposed None/Limited to Skin Breakdown -Texture (Alyse-wound Skin Appearance) No Abnormality, Assessed -Moisture (Alyse-wound Skin Appearance No Abnormality, ) Assessed -Color (Alyse-wound Skin Appearance) Erythema -Temperature (Alyse-wound Skin No Abnormality Appearance) (Pt Warm) -Tenderness on Palpation (Alyse-wound Yes Skin Appearance) -Ulcer Cleansing Rinsed/ Irrigated with Saline -Anesthetic Used 5% Lidocaine Gel 2-left medial posterior LE -Combined with other wound No -Current Size (cm) - Length 3.2 -Current Size (cm) - Width 1.8 -Current Size (cm) - Depth 0.1 -Total Square Cm 5.76 -Photo Taken No -Epithelialization None Present -Tunneling No -Undermining/Tunneling No -Circular Undermining No -Exudate Type Serosanguineous -Wound Margin Distinct, Outline Attached -Granulation Amt Small (1-33%) -Granulation Quality Pale,[place] -Slough/Fibrin Yes -Necrosis Amt Small (1-33%) -Necrotic Tissue Type Adherent Slough -Structure Exposed None/Limited to Skin Breakdown -Texture (Alyse-wound Skin Appearance) Localized Edema -Moisture (Alyse-wound Skin Appearance No Abnormality, ) Assessed -Color (Alyse-wound Skin Appearance) Erythema -Temperature (Alyse-wound Skin No Abnormality Appearance) (Pt Warm) -Tenderness on Palpation (Alyse-wound Yes Skin Appearance) -Ulcer Cleansing Rinsed/ Irrigated with Saline -Foul Odor after Cleansing No -Anesthetic Used 5% Lidocaine Gel 1-right lateral ankle -Combined with other wound No -Current Size (cm) - Length 0.1 -Current Size (cm) - Width 0.1 -Current Size (cm) - Depth 0.1 -Total Square Cm 0.01 -Photo Taken No -Epithelialization None Present -Tunneling No -Undermining/Tunneling No -Circular Undermining No -Necrosis Amt Large (67-100%) -Necrotic Tissue Type Eschar -Temperature (Alyse-wound Skin No Abnormality Appearance) (Pt Warm) -Tenderness on Palpation (Alyse-wound No Skin Appearance) -Ulcer Cleansing Rinsed/ Irrigated with Saline -Foul Odor after Cleansing No -Anesthetic Used 5% Lidocaine Gel [Edema Assessment] -Lower Limb Edema Present Yes -Right Calf (cm) 27 -Right Ankle (cm) 43.5 -Left Calf (cm) 28 -Left Ankle (cm) 42.8 WC - Nurse 2 - General Ulcer CM Notes Start: 09/09/18 14:39 Freq: Status: Active Protocol: Activity Type Activity Date Activity User E-Sign Co-Sign Detail Recorded Client Recorded Date Recorded By Document 09/17/18 11:44 [email or web address] [id number] 09/17/18 11:57 KELLI 09/17/18 11:44 Wound Center Nurse 2 [Procedure/Treatment] 5-left superior medial leg -Time 11:56 -Correct Patient Yes -Correct Side, Site, Position Yes -Correct Procedure Yes -Procedure Performed Yes -Type of Procedure Debridement -Clinical Debridement Subcutaneous -Post Debridement Size (cm) - Length 1.2 -Post Debridement Size (cm) - Width 0.6 -Post Debridement Size (cm) - Depth 0.2 -Total Square Cm 0.72 -Wound/Ulcer Outcome Not Healed -Ulcer Cleansing Rinsed/ Irrigated with Saline -Foul Odor after Cleansing No -Bioengineered Tissue No -Bleeding Controlled with Pressure -Offloading No -Treatment Response Procedure Tolerated Well #4 Right medial LE -Time 11:54 -Correct Patient Yes -Correct Side, Site, Position Yes -Correct Procedure Yes -Procedure Performed Yes -Type of Procedure Debridement -Clinical Debridement Subcutaneous -Post Debridement Size (cm) - Length 2 -Post Debridement Size (cm) - Width 3.5 -Post Debridement Size (cm) - Depth 0.1 -Total Square Cm 7.0 -Wound/Ulcer Outcome Not Healed -Ulcer Cleansing Rinsed/ Irrigated with Saline -Foul Odor after Cleansing No -Bioengineered Tissue No -Bleeding Controlled with Pressure -Offloading No -Treatment Response Procedure Tolerated Well #3 right dexter cluster -Time 11:49 -Correct Patient Yes -Correct Side, Site, Position Yes -Correct Procedure Yes -Procedure Performed Yes -Type of Procedure Debridement -Clinical Debridement Subcutaneous -Post Debridement Size (cm) - Length 7.5 -Post Debridement Size (cm) - Width 1.5 -Post Debridement Size (cm) - Depth 0.2 -Total Square Cm 11.25 -Wound/Ulcer Outcome Not Healed -Ulcer Cleansing Rinsed/ Irrigated with Saline -Foul Odor after Cleansing No -Bioengineered Tissue No -Bleeding Controlled with Pressure -Offloading No -Treatment Response Procedure Tolerated Well 2-left medial posterior LE -Time 11:52 -Correct Patient Yes -Correct Side, Site, Position Yes -Correct Procedure Yes -Procedure Performed Yes -Type of Procedure Debridement -Clinical Debridement Subcutaneous -Post Debridement Size (cm) - Length 3 -Post Debridement Size (cm) - Width 1 -Post Debridement Size (cm) - Depth 0.1 -Total Square Cm 3 -Wound/Ulcer Outcome Not Healed -Ulcer Cleansing Rinsed/ Irrigated with Saline -Foul Odor after Cleansing No -Bioengineered Tissue No -Bleeding Controlled with Pressure -Offloading No -Treatment Response Procedure Tolerated Well 1-right lateral ankle -Time 11:51 -Correct Patient Yes -Correct Side, Site, Position Yes -Correct Procedure Yes -Procedure Performed Yes -Type of Procedure Debridement -Clinical Debridement Subcutaneous -Post Debridement Size (cm) - Length 2.8 -Post Debridement Size (cm) - Width 0.3 -Post Debridement Size (cm) - Depth 0.1 -Total Square Cm 0.84 -Wound/Ulcer Outcome Not Healed -Ulcer Cleansing Rinsed/ Irrigated with Saline -Foul Odor after Cleansing No -Bioengineered Tissue No -Bleeding Controlled with Pressure -Offloading No -Treatment Response Procedure Tolerated Well [See Physician Procedure note for Specifics] Pain Scale: 0-10 Numeric [Pain] -Is Patient Pain Free? Yes Musculoskeletal: No Muscle Wasting Neurological: Neuro grossly intact Psych/Mental Status: Normal Affect, Appropriate Debridement Note Post-Debridement Measurements/Treatment WC - Nurse 2 - General Ulcer CM Notes Start: 09/09/18 14:39 Freq: Status: Active Protocol: Activity Type Activity Date Activity User E-Sign Co-Sign Detail Recorded Client Recorded Date Recorded By Document 09/09/18 16:10 [id number] 09/09/18 16:12 Document 09/17/18 11:44 [id number] 09/17/18 11:57 09/09/18 09/17/18 16:10 11:44 Wound Center Nurse 2 5-left superior medial leg -Time 11:56 -Correct Patient Yes -Correct Side, Site, Position Yes -Correct Procedure Yes -Procedure Performed Yes -Type of Procedure Debridement -Clinical Debridement Subcutaneous -Post Debridement Size (cm) - Length 1.2 -Post Debridement Size (cm) - Width 0.6 -Post Debridement Size (cm) - Depth 0.2 -Total Square Cm 0.72 -Wound/Ulcer Outcome Not Healed -Ulcer Cleansing Rinsed/ Irrigated with Saline -Foul Odor after Cleansing No -Bioengineered Tissue No -Bleeding Controlled with Pressure -Offloading No -Treatment Response Procedure Tolerated Well #4 Right medial LE -Time 11:54 -Correct Patient Yes -Correct Side, Site, Position Yes -Correct Procedure Yes -Procedure Performed Yes -Type of Procedure Debridement -Clinical Debridement Subcutaneous -Post Debridement Size (cm) - Length 2 -Post Debridement Size (cm) - Width 3.5 -Post Debridement Size (cm) - Depth 0.1 -Total Square Cm 7.0 -Wound/Ulcer Outcome Not Healed -Ulcer Cleansing Rinsed/ Irrigated with Saline -Foul Odor after Cleansing No -Bioengineered Tissue No -Bleeding Controlled with Pressure -Offloading No -Treatment Response Procedure Tolerated Well #3 right dexter cluster -Time 11:49 -Correct Patient Yes -Correct Side, Site, Position Yes -Correct Procedure Yes -Procedure Performed Yes -Type of Procedure Debridement -Clinical Debridement Subcutaneous -Post Debridement Size (cm) - Length 7.5 -Post Debridement Size (cm) - Width 1.5 -Post Debridement Size (cm) - Depth 0.2 -Total Square Cm 11.25 -Wound/Ulcer Outcome Not Healed -Ulcer Cleansing Rinsed/ Irrigated with Saline -Foul Odor after Cleansing No -Bioengineered Tissue No -Bleeding Controlled with Pressure -Offloading No -Treatment Response Procedure Tolerated Well 2-left medial posterior LE -Time 16:11 11:52 -Correct Patient Yes Yes -Correct Side, Site, Position Yes Yes -Correct Procedure Yes Yes -Procedure Performed Yes Yes -Type of Procedure Debridement Debridement -Clinical Debridement Subcutaneous Subcutaneous -Post Debridement Size (cm) - Length 1.3 3 -Post Debridement Size (cm) - Width 2.5 1 -Post Debridement Size (cm) - Depth 0.2 0.1 -Total Square Cm 3.25 3 -Wound/Ulcer Outcome Not Healed Not Healed -Ulcer Cleansing Rinsed/ Rinsed/ Irrigated with Irrigated with Saline Saline -Foul Odor after Cleansing No No -Bioengineered Tissue No No -Bleeding Controlled with Pressure Pressure -Offloading No No -Treatment Response Procedure Procedure Tolerated Well Tolerated Well 1-right lateral ankle -Time 16:10 11:51 -Correct Patient Yes Yes -Correct Side, Site, Position Yes Yes -Correct Procedure Yes Yes -Procedure Performed Yes Yes -Type of Procedure Debridement Debridement -Clinical Debridement Subcutaneous Subcutaneous -Post Debridement Size (cm) - Length 3.2 2.8 -Post Debridement Size (cm) - Width 1.3 0.3 -Post Debridement Size (cm) - Depth 0.2 0.1 -Total Square Cm 4.16 0.84 -Wound/Ulcer Outcome Not Healed Not Healed -Ulcer Cleansing Rinsed/ Rinsed/ Irrigated with Irrigated with Saline Saline -Foul Odor after Cleansing No No -Bioengineered Tissue No No -Bleeding Controlled with Pressure Pressure -Offloading No No -Treatment Response Procedure Procedure Tolerated Well Tolerated Well Pain Scale: 0-10 Numeric Is Patient Pain Free? Yes Yes Wound debrided: Right lateral ankle Laterality: Right Type of Debridement: Excisional debridement Anesthesia Used: 4% Lidocaine Solution Depth: Down to and including healthy tissue, in the subcutaneous layer Percentage of wound debrided: 100 Instrument Used: 5mm curette Tissue Removed: Subcutaneous tissue and slough Severity: Limited To Skin Breakdown Amount of bleeding with debridement: Mild Bleeding Controlled with: Pressure Patient tolerated procedure well - Additional Wound Wound debrided: right medial leg Type of Debridement: Excisional debridement Anesthesia Used: 4% Lidocaine Solution Depth: Down to and including healthy tissue Percentage of wound debrided: 100 Instrument Used: 5mm curette Tissue Removed: Subcutaneous tissue and slough Severity: Limited To Skin Breakdown Amount of bleeding with debridement: Mild Bleeding Controlled with: Pressure Patient tolerated procedure: Patient tolerated procedure well - Additional Wound Wound debrided: Left superior medial leg Type of Debridement: Excisional debridement Anesthesia Used: 4% Lidocaine Solution Depth: Down to and including healthy tissue Percentage of wound debrided: 100 Instrument Used: 5mm curette Tissue Removed: Subcutaneous tissue and slough Severity: Fat Layer Exposed Amount of bleeding with debridement: Mild Bleeding Controlled with: Pressure Patient tolerated procedure: Patient tolerated procedure well - Additional Wound Wound debrided: Left medial/posterior left Type of Debridement: Excisional debridement Anesthesia Used: 4% Lidocaine Solution Percentage of wound debrided: 100 Instrument Used: 5mm curette Tissue Removed: Subcutaneous tissue and slough Severity: Fat Layer Exposed Amount of bleeding with debridement: Mild Bleeding Controlled with: Pressure Patient tolerated procedure: Patient tolerated procedure well - Additional Wound Wound debrided: Right anterior lower leg Type of Debridement: Excisional debridement Anesthesia Used: 4% Lidocaine Solution Depth: Down to and including healthy tissue, in the subcutaneous layer Percentage of wound debrided: 100 Instrument Used: 5mm curette Tissue Removed: Subcutaneous tissue and slough Severity: Limited To Skin Breakdown Amount of bleeding with debridement: Mild Bleeding Controlled with: Pressure Patient tolerated procedure: Patient tolerated procedure well Assessment/Plan Active Problems (Last Reviewed 05/26/18 @ 13:18 by Kelle Aldana) Bilateral lower extremity edema (Chronic) Ulcer of ankle (Chronic) right lateral ankle Ulcer of left medial lower extremity (Chronic) Ulcer of right medial lower extremity (Acute) Ulcer of left medial lower extremity, limited to breakdown of skin (Acute) Assessment: 1. Bilateral lower extremity edema. 2. Ulcer of right lateral ankle. 3. Ulcer of left medial lower extremity Plan: Patient was seen and evaluated in the wound center today. A subcutaneous debridement was performed today and the patient tolerated it well. Plan of care discussed with the patient and his . Will have the patient's stop using triple antibiotic ointment on bilateral lower legs and will have her continue using collogen hydrogel with adaptic daily and then wrap with NAHOMI wraps. Patient has not been wearing compression due to the heat. Reinforced the importance of wearing compression because he is having worsing symptoms with blisters that turn into new ulcers. Will apply single layer tubigrip. Is scheduled for vascular studies tomorrow. Patient would benefit form 3M double wraps but need to have the results from the vascular studies before they can be applied. Patient has home health through [facility]. Follow up in one week with Dr. Gallagher to discuss vascular studies and order appropriate compression with him. Code Visit 111xxx-113xx: 23401 Cande subq tissue 20 sq cm/< Add On Codes: 47889 Cande subq tissue add-on
--- NOTE | 2018-09-17 12:49 | VDLE_ITS ---
Reason For Study: PVD RIGHT LEFT CFV is compressible, spontaneous, phasic, CFV is compressible, spontaneous, phasic, competent and demonstrates normal competent, and demonstrates normal augmentation. augmentation. FV is compressible, spontaneous, phasic, FV is compressible, spontaneous, phasic, competent and demonstrates normal competent and demonstrates normal augmentation. augmentation. POP V is compressible, spontaneous, phasic, POP V is compressible, spontaneous, phasic, competent and demonstrates normal competent and demonstrates normal augmentation. augmentation. T/P Trunk is compressible. T/P Trunk is compressible. PTV is compressible. PTV is compressible. RT PerV is compressible. LT PerV is compressible. SFJ is competent. SFJ is competent. GSV is competent. GSV previously harvested. SSV is competent. SSV is competent. Procedure Exam performed in department. The study was technically difficult. A preliminary report was called and/or faxed to . Interpretation Summary Deep veins of the lower extremities are bilaterally patent and compressible segmentally. There is no evidence of deep vein thrombosis on either side. Valvular competence appears intact within the proximal deep venous systems bilaterally. The right greater saphenous vein appears patent and compressible segmentally. The left greater saphenous vein has been previously harvested. Sapheno- femoral junctions are bilaterally competent . The right greater saphenous vein appears segmentally competent. Small saphenous veins are patent and competent bilaterally. Ordering Physician: Carlie Marina Referring Physician: Darnell Bryant MD Performed By: Fartun Smith RVT
[2018-09-24 08:30] VITALS: BP 136/76; PULSE 80; RESP 18; TEMP 36.2; BMI 37.3
--- NOTE | 2018-09-24 19:54 | PCM.WC.PN ---
(1) Ulcer of left medial lower extremity, limited to breakdown of skin Status: Chronic Current Visit: Yes Code(s): L97.821 - Non-pressure chronic ulcer of other part of left lower leg limited to breakdown of skin (2) Ulcer of right medial lower extremity Status: Chronic Current Visit: Yes Code(s): L97.819 - Non-pressure chronic ulcer of other part of right lower leg with unspecified severity (3) Bilateral lower extremity edema Status: Chronic Current Visit: Yes Code(s): R60.0 - Localized edema (4) Ulcer of left medial lower extremity Status: Chronic Current Visit: Yes Qualifiers: Non-pressure ulcer stage: with fat layer exposed Qualified Code(s): L97.822 - Non-pressure chronic ulcer of other part of left lower leg with fat layer exposed Code(s): L97.829 - Non-pressure chronic ulcer of other part of left lower leg with unspecified severity Type of Wound Date of Service: 09/24/18 Chief Complaint: Bilateral lower leg edema History of Wound: Patient had been hospitalized at [facility] 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 His bilateral lower legs became very edematous and he started to develop multiple blisters over his ower legs and feet. His legs would ooze fluid. His has been placing triple antiobiotic ointment and NAHOMI wrap to his lower extermities. He was referred to the wound center from his home health agency for edema management. Progress of Wound: Courtesy Visit. No new concerns at this time. Reports compliance with dressing changes. - Physical Exam Vital Signs Temp Pulse Resp BP 97.1 F L 80 18 136/76 H 09/24/18 08:30 09/24/18 08:30 09/24/18 08:30 09/24/18 08:30 General: Alert, Oriented x3, Cooperative, No apparent distress HEENT: Atraumatic, Normocephalic Oral: Moist Mucosa Neck: Supple Abdomen: Obese Extremities: No cyanosis, Edema Skin: Ulcer/ Wound Wound Measurements and Assessment WC - Nurse 1 - General Ulcer Measurement Start: 09/09/18 14:39 Freq: Status: Active Protocol: Activity Type Activity Date Activity User E-Sign Co-Sign Detail Recorded Client Recorded Date Recorded By Document 09/24/18 08:30 MW [id number] 09/24/18 08:48 MW 09/24/18 08:30 Wound Center Nurse 1 [Ulcer Assessment] #6- LT DEXTER -Combined with other wound No -Current Size (cm) - Length 1.7 -Current Size (cm) - Width 2.1 -Current Size (cm) - Depth 0.1 -Total Square Cm 3.57 -Date of Last Picture (Recall this 09/24/18 field) -Photo Taken Yes -Epithelialization None Present -Tunneling No -Undermining/Tunneling No -Circular Undermining No -Exudate Amt Small -Exudate Type Serous -Wound Margin Flat & Intact -Granulation Amt Large (67-100%) -Granulation Quality Red -Slough/Fibrin No -Necrosis Amt None Present (0 %) -Texture (Alyse-wound Skin Appearance) Assessed, Scarring -Moisture (Alyse-wound Skin Appearance Assessed, ) Weeping -Color (Alyse-wound Skin Appearance) Assessed, Erythema -Temperature (Alyse-wound Skin No Abnormality Appearance) (Pt Warm) -Tenderness on Palpation (Alyse-wound No Skin Appearance) -Ulcer Cleansing Wound Cleanser -Foul Odor after Cleansing No -Anesthetic Used 4% Lidocaine Solution 5-left superior medial leg -Combined with other wound No -Current Size (cm) - Length 0.8 -Current Size (cm) - Width 0.8 -Current Size (cm) - Depth 0.1 -Total Square Cm 0.64 -Photo Taken No -Epithelialization None Present -Tunneling No -Undermining/Tunneling No -Circular Undermining No -Exudate Amt Small -Exudate Type Serous -Wound Margin Flat & Intact -Granulation Amt Small (1-33%) -Granulation Quality Red -Slough/Fibrin Yes -Necrosis Amt Large (67-100%) -Necrotic Tissue Type Adherent Slough -Texture (Alyse-wound Skin Appearance) Assessed, Scarring -Moisture (Alyse-wound Skin Appearance Assessed, ) Weeping -Color (Alyse-wound Skin Appearance) Assessed, Erythema -Temperature (Alyse-wound Skin No Abnormality Appearance) (Pt Warm) -Tenderness on Palpation (Alyse-wound No Skin Appearance) -Ulcer Cleansing Wound Cleanser -Foul Odor after Cleansing No -Anesthetic Used 4% Lidocaine Solution #4 Right medial LE -Combined with other wound No -Current Size (cm) - Length 3.0 -Current Size (cm) - Width 3.5 -Current Size (cm) - Depth 0.1 -Total Square Cm 10.50 -Photo Taken No -Epithelialization None Present -Tunneling No -Undermining/Tunneling No -Circular Undermining No -Exudate Amt Small -Exudate Type Serous -Wound Margin Flat & Intact -Granulation Amt Large (67-100%) -Granulation Quality Red -Slough/Fibrin No -Necrosis Amt None Present (0 %) -Texture (Alyse-wound Skin Appearance) Assessed, Scarring -Moisture (Alyse-wound Skin Appearance Assessed, ) Weeping -Color (Alyse-wound Skin Appearance) Assessed, Erythema -Temperature (Alyse-wound Skin No Abnormality Appearance) (Pt Warm) -Tenderness on Palpation (Alyse-wound No Skin Appearance) -Ulcer Cleansing Wound Cleanser -Foul Odor after Cleansing No -Anesthetic Used 4% Lidocaine Solution #3 right dexter cluster -Combined with other wound No -Current Size (cm) - Length 1.9 -Current Size (cm) - Width 1.5 -Current Size (cm) - Depth 0.1 -Total Square Cm 2.85 -Photo Taken No -Epithelialization None Present -Tunneling No -Undermining/Tunneling No -Circular Undermining No -Wound Margin Flat & Intact -Granulation Amt Large (67-100%) -Granulation Quality Red -Slough/Fibrin Yes -Necrosis Amt Small (1-33%) -Necrotic Tissue Type Adherent Slough -Texture (Alyse-wound Skin Appearance) Assessed, Scarring -Moisture (Alyse-wound Skin Appearance Assessed, ) Weeping -Color (Alyse-wound Skin Appearance) No Abnormality, Assessed -Temperature (Alyse-wound Skin No Abnormality Appearance) (Pt Warm) -Tenderness on Palpation (Alyse-wound No Skin Appearance) -Ulcer Cleansing Wound Cleanser -Foul Odor after Cleansing No -Anesthetic Used 4% Lidocaine Solution 2-left medial posterior LE -Combined with other wound No -Current Size (cm) - Length 3.5 -Current Size (cm) - Width 1.5 -Current Size (cm) - Depth 0.1 -Total Square Cm 5.25 -Photo Taken No -Epithelialization None Present -Tunneling No -Undermining/Tunneling No -Circular Undermining No -Exudate Amt Small -Exudate Type Serous -Wound Margin Flat & Intact -Granulation Amt Large (67-100%) -Granulation Quality Red -Slough/Fibrin Yes -Necrosis Amt Small (1-33%) -Necrotic Tissue Type Adherent Slough -Texture (Alyse-wound Skin Appearance) Assessed, Scarring -Moisture (Alyse-wound Skin Appearance Assessed, ) Weeping -Color (Alyse-wound Skin Appearance) Assessed, Erythema -Temperature (Alyse-wound Skin No Abnormality Appearance) (Pt Warm) -Tenderness on Palpation (Alyse-wound No Skin Appearance) -Ulcer Cleansing Wound Cleanser -Foul Odor after Cleansing No -Anesthetic Used 4% Lidocaine Solution 1-right lateral ankle -Combined with other wound No -Current Size (cm) - Length 0.1 -Current Size (cm) - Width 0.1 -Current Size (cm) - Depth 0.1 -Total Square Cm 0.01 -Photo Taken No -Epithelialization None Present -Tunneling No -Undermining/Tunneling No -Circular Undermining No -Exudate Amt Small -Exudate Type Serous -Wound Margin Flat & Intact -Granulation Amt None Present (0 %) -Slough/Fibrin Yes -Necrosis Amt Large (67-100%) -Necrotic Tissue Type Adherent Slough -Texture (Alyse-wound Skin Appearance) Assessed, Scarring -Moisture (Alyse-wound Skin Appearance Assessed, ) Weeping -Color (Alyse-wound Skin Appearance) Assessed, Erythema -Temperature (Alyse-wound Skin No Abnormality Appearance) (Pt Warm) -Tenderness on Palpation (Alyse-wound No Skin Appearance) -Ulcer Cleansing Rinsed/ Irrigated with Saline -Foul Odor after Cleansing No -Anesthetic Used 4% Lidocaine Solution [Edema Assessment] -Lower Limb Edema Present Yes -Right Calf (cm) 42.3 -Right Ankle (cm) 26.5 -Left Calf (cm) 41.4 -Left Ankle (cm) 28.2 WC - Nurse 2 - General Ulcer CM Notes Start: 09/09/18 14:39 Freq: Status: Active Protocol: Activity Type Activity Date Activity User E-Sign Co-Sign Detail Recorded Client Recorded Date Recorded By Document 09/24/18 09:19 MW [id number] 09/24/18 09:31 MW 09/24/18 09:19 Wound Center Nurse 2 [Procedure/Treatment] #6- LT DEXTER -Time 09:20 -Correct Patient Yes -Correct Side, Site, Position Yes -Correct Procedure Yes -Procedure Performed Yes -Type of Procedure Debridement -Clinical Debridement Subcutaneous -Post Debridement Size (cm) - Length 1.8 -Post Debridement Size (cm) - Width 2.0 -Post Debridement Size (cm) - Depth 0.1 -Total Square Cm 3.60 -Wound/Ulcer Outcome Not Healed -Ulcer Cleansing Rinsed/ Irrigated with Saline -Foul Odor after Cleansing No -Bioengineered Tissue No -Bleeding Controlled with Pressure -Offloading No -Treatment Response Procedure Tolerated Well 5-left superior medial leg -Time 09:20 -Correct Patient Yes -Correct Side, Site, Position Yes -Correct Procedure Yes -Procedure Performed No -Post Debridement Size (cm) - Length 0.1 -Post Debridement Size (cm) - Width 0.1 -Post Debridement Size (cm) - Depth 0.1 -Total Square Cm 0.01 -Wound/Ulcer Outcome Not Healed -Ulcer Cleansing Rinsed/ Irrigated with Saline -Foul Odor after Cleansing No -Bioengineered Tissue No -Bleeding Controlled with Pressure -Offloading No -Treatment Response Procedure Tolerated Well #4 Right medial LE -Time 09:20 -Correct Patient Yes -Correct Side, Site, Position Yes -Correct Procedure Yes -Procedure Performed Yes -Type of Procedure Debridement -Clinical Debridement Subcutaneous -Post Debridement Size (cm) - Length 2.3 -Post Debridement Size (cm) - Width 2.5 -Post Debridement Size (cm) - Depth 0.1 -Total Square Cm 5.75 -Wound/Ulcer Outcome Not Healed -Ulcer Cleansing Rinsed/ Irrigated with Saline -Foul Odor after Cleansing No -Bioengineered Tissue No -Bleeding Controlled with Pressure -Offloading No -Treatment Response Procedure Tolerated Well #3 right dexter cluster -Time 09:20 -Correct Patient Yes -Correct Side, Site, Position Yes -Correct Procedure Yes -Procedure Performed Yes -Type of Procedure Debridement -Clinical Debridement Subcutaneous -Post Debridement Size (cm) - Length 7.5 -Post Debridement Size (cm) - Width 1.5 -Post Debridement Size (cm) - Depth 0.1 -Total Square Cm 11.25 -Wound/Ulcer Outcome Not Healed -Ulcer Cleansing Not Cleansed -Foul Odor after Cleansing No -Bioengineered Tissue No -Bleeding Controlled with Pressure -Offloading No -Treatment Response Procedure Tolerated Well 2-left medial posterior LE -Time 09:20 -Correct Patient Yes -Correct Side, Site, Position Yes -Correct Procedure Yes -Procedure Performed Yes -Type of Procedure Debridement -Clinical Debridement Subcutaneous -Post Debridement Size (cm) - Length 4.0 -Post Debridement Size (cm) - Width 1.8 -Post Debridement Size (cm) - Depth 0.1 -Total Square Cm 7.20 -Wound/Ulcer Outcome Not Healed -Ulcer Cleansing Rinsed/ Irrigated with Saline -Foul Odor after Cleansing No -Bioengineered Tissue No -Bleeding Controlled with Pressure -Offloading No 1-right lateral ankle -Time 09:21 -Correct Patient Yes -Correct Side, Site, Position Yes -Correct Procedure Yes -Procedure Performed No -Post Debridement Size (cm) - Length 0 -Post Debridement Size (cm) - Width 0 -Post Debridement Size (cm) - Depth 0 -Total Square Cm 0 -Wound/Ulcer Outcome Healed- Epithelialized -Ulcer Cleansing Not Cleansed -Foul Odor after Cleansing No -Bioengineered Tissue No -Bleeding Controlled with NA -Offloading No -Treatment Response Procedure Tolerated Well [See Physician Procedure note for Specifics] Pain Scale: 0-10 Numeric [Pain] -Is Patient Pain Free? Yes Musculoskeletal: No Muscle Wasting Neurological: Cranial nerves II-XII grossly intact Psych/Mental Status: Normal Affect Debridement Note Post-Debridement Measurements/Treatment WC - Nurse 2 - General Ulcer CM Notes Start: 09/09/18 14:39 Freq: Status: Active Protocol: Activity Type Activity Date Activity User E-Sign Co-Sign Detail Recorded Client Recorded Date Recorded By Document 09/09/18 16:10 [id number] 09/09/18 16:12 Document 09/17/18 11:44 [id number] 09/17/18 11:57 Document 09/24/18 09:19 [id number] 09/24/18 09:31 MW 09/09/18 09/17/18 09/24/18 16:10 11:44 09:19 Wound Center Nurse 2 #6- LT DEXTER -Time 09:20 -Correct Patient Yes -Correct Side, Site, Position Yes -Correct Procedure Yes -Procedure Performed Yes -Type of Procedure Debridement -Clinical Debridement Subcutaneous -Post Debridement Size (cm) - Length 1.8 -Post Debridement Size (cm) - Width 2.0 -Post Debridement Size (cm) - Depth 0.1 -Total Square Cm 3.60 -Wound/Ulcer Outcome Not Healed -Ulcer Cleansing Rinsed/ Irrigated with Saline -Foul Odor after Cleansing No -Bioengineered Tissue No -Bleeding Controlled with Pressure -Offloading No -Treatment Response Procedure Tolerated Well 5-left superior medial leg -Time 11:56 09:20 -Correct Patient Yes Yes -Correct Side, Site, Position Yes Yes -Correct Procedure Yes Yes -Procedure Performed Yes No -Type of Procedure Debridement -Clinical Debridement Subcutaneous -Post Debridement Size (cm) - Length 1.2 0.1 -Post Debridement Size (cm) - Width 0.6 0.1 -Post Debridement Size (cm) - Depth 0.2 0.1 -Total Square Cm 0.72 0.01 -Wound/Ulcer Outcome Not Healed Not Healed -Ulcer Cleansing Rinsed/ Rinsed/ Irrigated with Irrigated with Saline Saline -Foul Odor after Cleansing No No -Bioengineered Tissue No No -Bleeding Controlled with Pressure Pressure -Offloading No No -Treatment Response Procedure Procedure Tolerated Well Tolerated Well #4 Right medial LE -Time 11:54 09:20 -Correct Patient Yes Yes -Correct Side, Site, Position Yes Yes -Correct Procedure Yes Yes -Procedure Performed Yes Yes -Type of Procedure Debridement Debridement -Clinical Debridement Subcutaneous Subcutaneous -Post Debridement Size (cm) - Length 2 2.3 -Post Debridement Size (cm) - Width 3.5 2.5 -Post Debridement Size (cm) - Depth 0.1 0.1 -Total Square Cm 7.0 5.75 -Wound/Ulcer Outcome Not Healed Not Healed -Ulcer Cleansing Rinsed/ Rinsed/ Irrigated with Irrigated with Saline Saline -Foul Odor after Cleansing No No -Bioengineered Tissue No No -Bleeding Controlled with Pressure Pressure -Offloading No No -Treatment Response Procedure Procedure Tolerated Well Tolerated Well #3 right dexter cluster -Time 11:49 09:20 -Correct Patient Yes Yes -Correct Side, Site, Position Yes Yes -Correct Procedure Yes Yes -Procedure Performed Yes Yes -Type of Procedure Debridement Debridement -Clinical Debridement Subcutaneous Subcutaneous -Post Debridement Size (cm) - Length 7.5 7.5 -Post Debridement Size (cm) - Width 1.5 1.5 -Post Debridement Size (cm) - Depth 0.2 0.1 -Total Square Cm 11.25 11.25 -Wound/Ulcer Outcome Not Healed Not Healed -Ulcer Cleansing Rinsed/ Not Cleansed Irrigated with Saline -Foul Odor after Cleansing No No -Bioengineered Tissue No No -Bleeding Controlled with Pressure Pressure -Offloading No No -Treatment Response Procedure Procedure Tolerated Well Tolerated Well 2-left medial posterior LE -Time 16:11 11:52 09:20 -Correct Patient Yes Yes Yes -Correct Side, Site, Position Yes Yes Yes -Correct Procedure Yes Yes Yes -Procedure Performed Yes Yes Yes -Type of Procedure Debridement Debridement Debridement -Clinical Debridement Subcutaneous Subcutaneous Subcutaneous -Post Debridement Size (cm) - Length 1.3 3 4.0 -Post Debridement Size (cm) - Width 2.5 1 1.8 -Post Debridement Size (cm) - Depth 0.2 0.1 0.1 -Total Square Cm 3.25 3 7.20 -Wound/Ulcer Outcome Not Healed Not Healed Not Healed -Ulcer Cleansing Rinsed/ Rinsed/ Rinsed/ Irrigated with Irrigated with Irrigated with Saline Saline Saline -Foul Odor after Cleansing No No No -Bioengineered Tissue No No No -Bleeding Controlled with Pressure Pressure Pressure -Offloading No No No -Treatment Response Procedure Procedure Tolerated Well Tolerated Well 1-right lateral ankle -Time 16:10 11:51 09:21 -Correct Patient Yes Yes Yes -Correct Side, Site, Position Yes Yes Yes -Correct Procedure Yes Yes Yes -Procedure Performed Yes Yes No -Type of Procedure Debridement Debridement -Clinical Debridement Subcutaneous Subcutaneous -Post Debridement Size (cm) - Length 3.2 2.8 0 -Post Debridement Size (cm) - Width 1.3 0.3 0 -Post Debridement Size (cm) - Depth 0.2 0.1 0 -Total Square Cm 4.16 0.84 0 -Wound/Ulcer Outcome Not Healed Not Healed Healed- Epithelialized -Ulcer Cleansing Rinsed/ Rinsed/ Not Cleansed Irrigated with Irrigated with Saline Saline -Foul Odor after Cleansing No No No -Bioengineered Tissue No No No -Bleeding Controlled with Pressure Pressure NA -Offloading No No No -Treatment Response Procedure Procedure Procedure Tolerated Well Tolerated Well Tolerated Well Pain Scale: 0-10 Numeric Is Patient Pain Free? Yes Yes Yes Wound debrided: Left medial (posterior) lower extremity Wound Grade/Stage: Stage II Type of Debridement: Excisional debridement Anesthesia Used: 4% Lidocaine Solution Depth: Down to and including healthy tissue, in the subcutaneous layer Percentage of wound debrided: 100 Instrument Used: 5mm curette Tissue Removed: Slough and devitalized tissue Severity: Fat Layer Exposed Amount of bleeding with debridement: Mild Bleeding Controlled with: Pressure Patient tolerated procedure well - Additional Wound Wound debrided: Left dexter Wound Grade/Stage: Stage II Type of Debridement: Excisional debridement Anesthesia Used: 4% Lidocaine Solution Depth: Down to and including healthy tissue, in the subcutaneous layer Percentage of wound debrided: 100 Instrument Used: 5mm curette Tissue Removed: Slough and devitalized tissue Severity: Fat Layer Exposed Amount of bleeding with debridement: Mild Bleeding Controlled with: Pressure Patient tolerated procedure: Patient tolerated procedure well - Additional Wound Wound debrided: Right medial lower extremity Wound Grade/Stage: stage II Type of Debridement: Excisional debridement Anesthesia Used: 4% Lidocaine Solution Depth: Down to and including healthy tissue, in the subcutaneous layer Percentage of wound debrided: 100 Instrument Used: 5mm curette Tissue Removed: Slough and devitalized tissue Severity: Fat Layer Exposed Amount of bleeding with debridement: Mild Bleeding Controlled with: Pressure Patient tolerated procedure: Patient tolerated procedure well - Additional Wound Wound debrided: Right dexter cluster Wound Grade/Stage: Stage II Type of Debridement: Excisional debridement Anesthesia Used: 4% Lidocaine Solution Depth: Down to and including healthy tissue, in the subcutaneous layer Percentage of wound debrided: 100 Instrument Used: 5mm curette Tissue Removed: Slough and devitalized tissue Severity: Fat Layer Exposed Amount of bleeding with debridement: Mild Bleeding Controlled with: Pressure Patient tolerated procedure: Patient tolerated procedure well Assessment/Plan Active Problems (Last Reviewed 05/26/18 @ 13:18 by Kelle Aldana) Bilateral lower extremity edema (Chronic) Ulcer of ankle (Chronic) right lateral ankle Ulcer of left medial lower extremity (Chronic) Ulcer of right medial lower extremity (Chronic) Ulcer of left medial lower extremity, limited to breakdown of skin (Chronic) Assessment: 1. Bilateral lower extremity edema. 2. Ulcer of right lateral ankle. 3. Ulcer of left medial lower extremity Plan: Courtesy Visit. No new concerns at this time. Debridement done as documented above, procedure was well-tolerated. Continue hydrogel daily. Patient's states that they do not want to continue care at the wound center because they believe they can manage also has appropriately at home. Arterial and venous studies discussed. Mild to moderate arterial insufficiency left worse than right. Patient currently not symptomatic. However advised that if he does become symptomatic or if there is poor/slow wound healing, he might require vascular evaluation. They expressed understanding. Double layer Tubigrip for edema management. Advised to elevate lower extremities when seated and in bed. Dietary management also discussed. All their questions were answered and they were advised to call with any further questions or concerns. Discharged from the wound clinic per patient preference. This note was generated with [employer] dictation software. It may contain incorrect words, spelling, and punctuation that were not noted in checking the note before signing.
== END 2018-09-28 23:59 ==
LOC: WC 08:15
PROVIDERS: Family Provider Family Medicine; PCP Family Medicine; Referring Provider Nurse Practitioner Family; Visit Provider Nurse Practitioner Family
DX: L97.822 Non-pressure chronic ulcer of other part of left lower leg with fat layer exposed (principal); R60.0 Localized edema; E78.5 Hyperlipidemia, unspecified; I25.2 Old myocardial infarction; I25.10 Atherosclerotic heart disease of native coronary artery without angina pectoris; Z95.1 Presence of aortocoronary bypass graft; I10 Essential (primary) hypertension; Z79.899 Other long term (current) drug therapy; L97.312 Non-pressure chronic ulcer of right ankle with fat layer exposed; L97.811 Non-pressure chronic ulcer of other part of right lower leg limited to breakdown of skin
CPT/HCPCS: 11042; 11045; 93923; 93970; 99213; G0463

== ENCOUNTER → 2019-08-17 15:38 | Outpatient (CLI) | payer OTHER, SELFPAY ==
[2019-07-14 09:32] VITALS: BMI 35.9
--- NOTE | 2019-08-17 15:48 | RAD_ITS ---
STUDY: X-RAY - LUMBAR SPINE REASON FOR EXAM: Male, 74 years old. lower back pain TECHNIQUE: 3 view(s) of the lumbar spine were obtained. COMPARISON: Prior study of 06/22/2012 FINDINGS: Normal lumbar lordosis. There is a mild lumbar dextroscoliosis. There is a grade 1 anterolisthesis of L4 relative to L5. There is endplate spondylosis of L5. There is multilevel disc space narrowing most severely affecting the L4-5 and L5-S1 levels. There is old moderately severe compression deformity of L5, not seen on the previous study however. A catheter is noted in the abdomen and pelvis which may represent RADAR TECHNICIAN shunt. There is a large colonic stool burden. RAD/Lumbar Spine 2 or 3 Views IMPRESSION: Grade 1 anterolisthesis of L4 relative to L5, stable in the interval. Multilevel disc space narrowing most severely affecting the L4-5 and L5-S1 levels. Old moderately severe compression deformity of L5, new however from the previous study. Electronically Signed: Moris Byers MD at 16:10 EDT , Service support ,
== END ==
PROVIDERS: PCP Family Medicine; Referring Provider Anesthesiology Pain Medicine; Visit Provider Anesthesiology Pain Medicine
DX: M79.606 Pain in leg, unspecified (principal)
CPT/HCPCS: 72100

== ENCOUNTER → 2019-09-23 13:53 | Outpatient (CLI) | payer OTHER, SELFPAY ==
[2019-07-14 09:32] VITALS: BMI 35.9
[2019-09-23 14:51] LABS: Amphetamine Urine VISTA NEGATIVE (<1000 ng/mL); Barbiturate Urine VISTA NEGATIVE (< 200 ng/mL); Benzodiazepine Urine VISTA NEGATIVE (< 200 ng/mL); Cocaine Urine VISTA NEGATIVE (< 300 ng/mL); Ecstacy Urine VISTA NEGATIVE (< 500 ng/mL); Methadone Urine VISTA NEGATIVE (< 300 ng/mL); PCP Urine VISTA NEGATIVE (< 25 ng/mL); THC Urine VISTA NEGATIVE (< 50 ng/mL); Vista UDS pH Range 6
== END ==
PROVIDERS: PCP Family Medicine; Referring Provider Anesthesiology Pain Medicine; Visit Provider Anesthesiology Pain Medicine
DX: F11.20 Opioid dependence, uncomplicated (principal)
CPT/HCPCS: 80307

== ENCOUNTER → 2020-01-18 13:48 | Outpatient (CLI) | payer OTHER, SELFPAY ==
[2019-07-14 09:32] VITALS: BMI 35.9
--- NOTE | 2020-01-18 13:52 | CT_ITS ---
STUDY: CT RIGHT SHOULDER REASON FOR EXAM: Male, 74 years old. right shoulder pain RADIATION DOSAGE (If Supplied By Facility): CTDIvol = ( 38.99 ) mGy, DLP = ( 859.88 ) mGycm TECHNIQUE: The patient was scanned in a multi detector CT scanner. High resolution transaxial imaging was performed without the administration of intravenous contrast material. Sagittal and coronal images were reconstructed. Individualized dose optimization techniques were used for this CT. COMPARISON: None. FINDINGS: There is severe osteoarthritis, with severe articular joint space narrowing, osteoarthritic spurring, articular remodeling, and with subchondral cysts/erosions. Normal visualized aspects of the scapula. There are multiple degenerative cysts at the proximal articular aspect of the humeral head and in the greater tuberosity which is likely related to erosions from the overlying rotator cuff tendons. Normal coracoid process. Normal visualized lateral clavicle. There is mild osteoarthritis with articular joint space narrowing. There is a Type II morphology (curved), with a neutral orientation. No visualized fracture. There is moderate fatty atrophy of the subscapularis muscle. The supraspinatus muscle is mildly atrophied. The remaining soft tissue structures are unremarkable. Surgical clips are seen in the right mediastinal region. 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 Electronically Signed: David Hughes MD at 16:54 EDT , Service support ,
--- NOTE | 2020-01-18 14:25 | CT_ITS ---
CT of the left shoulder without contrast INDICATION: Infection, history of arthroplasty TECHNIQUE: Multiple thin section axial CT images the left shoulder joint were obtained after the ministration 100 mL Isovue-300 intravenously and filmed in soft tissue and bone windows. Furthermore, multiple sagittal and coronal reconstructions were performed. Dose limiting techniques were utilized. FINDINGS: No abnormal soft tissue mass, lymphadenopathy, fluid collection. No acute fracture or dislocation. No lytic or blastic lesions. Status post left shoulder arthroplasty. Anterior dislocation of the prosthesis. Flattening and erosion of the glenoid. Moderate joint effusion of the shoulder joint. IMPRESSION: Anterior dislocation of the shoulder arthroplasty prosthesis with flattening and erosions of the glenoid. Moderate joint effusion and if infection is of concern, joint aspiration is recommended. Electronically Signed: Alphonse Heath MD at 8:22 EDT Tel , Service support , CT/Extremity Upper WITH Contrast
== END ==
PROVIDERS: PCP Family Medicine
DX: M19.011 Primary osteoarthritis, right shoulder (principal); T84.59XA Infection and inflammatory reaction due to other internal joint prosthesis, initial encounter
CPT/HCPCS: 73200; 73201; Q9967

== ENCOUNTER → 2020-02-09 08:51 | Outpatient (CLI) | payer OTHER, SELFPAY ==
[2020-01-27 15:24] VITALS: BMI 38.0
--- NOTE | 2020-02-09 08:52 | ECHOCS_ITS ---
Reason For Study: CAD/ASHD Procedure This was a 2D Doppler, Color Flow transthoracic echocardiogram. Techincally difficult study due to patients body habitus. patient unable to lay on left side and was scanned supine. The study was technically difficult. Contrast injection was performed. Exam performed in department. Left Ventricle Segmental dysfunction with preserved ejection fraction (see wall motion). The estimated ejection fraction is 55 %. Diastolic function is indeterminate. Infero-Basal: Akinetic. Basal inferoseptal: Hypokinetic. Mid-Inferior: Hypokinetic. Mid-anteroseptal : Hypokinetic. Right Ventricle Normal RV size. Normal systolic function. Atria Normal left atrium. Normal right atrium. No doppler evidence for ASD. Mitral Valve There is no mitral annular calcification. Mitral valve not well visualized. Trivial mitral valve insufficiency. Tricuspid Valve The tricuspid valve is not well visualized. Trivial tricuspid valve insufficiency. Unable to estimate RV systolic pressure/pulmonary artery pressure due to technically difficult study. Aortic Valve The aortic valve is not well visualized. Pulmonic Valve The pulmonic valve is not well visualized. Great Vessels The aortic root is not well visualized. Pericardium/Pleural No pericardial effusion. Medication 22 gauge I.V. with prn adaptor inserted into right arm. Diluted definity 3ml given slow IV push to enhance endocardial definition. MMode/2D Measurements & Calculations Ao root diam: 3.8 cm LAV(MOD-bp): 48.2 ml LA A4 area: 17.4 cm2 LAV(MOD-bp) Indexed: 20.5 ml/m2 LAV(MOD-sp2): 48.7 ml LAV(MOD-sp4): 45.4 ml RA A4 area: 13.3 cm2 Time Measurements MV dec time: 0.23 sec Doppler Measurements & Calculations MV E max edil: 55.1 cm/sec Lat Peak E' Edil: 10.3 cm/sec Med Peak E' Edil: 4.8 cm/sec MV A max edil: 72.1 cm/sec E/E' lat: 5.4 E/E' med: 11.4 MV E/A: 0.76 MV V2 max: 88.6 cm/sec MV P1/2t max edil: 69.2 cm/sec Ao V2 max: 98.9 cm/sec MV max P.1 mmHg MV P1/2t: 108.8 msec Ao max P.9 mmHg MV V2 mean: 45.9 cm/sec MV mean P.99 mmHg MV dec slope: 186.4 cm/sec2 MV V2 VTI: 22.8 cm MVA(P1/2t): 2.0 cm2 LV V1 max: 69.8 cm/sec PA V2 max: 74.2 cm/sec LV V1 max P.0 mmHg Interpretation Summary The study was technically difficult. Contrast injection was performed. Segmental dysfunction with preserved ejection fraction (see wall motion). The estimated ejection fraction is 55 %. Trivial mitral valve insufficiency. Trivial tricuspid valve insufficiency. Unable to estimate RV systolic pressure/pulmonary artery pressure due to technically difficult study. Diastolic function is indeterminate. Ordering Physician: Doyle Lee Referring Physician: Doyle Lee Performed By: Chandra Higgins RCS
== END ==
PROVIDERS: PCP Family Medicine; Referring Provider Internal Medicine Cardiovascular Disease; Visit Provider Internal Medicine Cardiovascular Disease
DX: I25.10 Atherosclerotic heart disease of native coronary artery without angina pectoris (principal); Z95.1 Presence of aortocoronary bypass graft; I25.5 Ischemic cardiomyopathy; E78.00 Pure hypercholesterolemia, unspecified; I10 Essential (primary) hypertension
CPT/HCPCS: 93306; Q9957; A4216; C8929

== ENCOUNTER → 2022-05-15 | Outpatient (CLI) | payer BC, SELFPAY ==
--- NOTE | 2022-05-15 09:52 | STRESSREP ---
Stress Test Report Date: 05-15-2022 Procedure: Pharmacologic stress nuclear imaging study Indications: CAD, CABG, ischemic cardiomyopathy, hyperlipidemia, hypertension Consent: Per the patient Procedure: The patient underwent pharmacologic (Regadenoson 0.4mg ) evaluation with a peak heart rate of 89 beats per minute (61%predicted maximal heart rate) and a resting blood pressure of 132/70 mmHg and a peak blood pressure of 132/70 mmHg. The baseline ECG demonstrated normal sinus rhythm; poor R wave progression. The peak pharmacologic ECG demonstrated no obvious ECG changes. There was a rare PVC during infusion. There was no complaint of chest discomfort during pharmacologic infusion or recovery. The examination was discontinued secondary to completion of protocol. Impression: 1. Pharmacologic (Regadenoson) evaluation 2. Peak pharmacologic ECG with no obvious ECG changes. 3. There was a rare PVC during infusion. 4. Nuclear images pending Myocardial perfusion imaging study: Technique: The patient was injected with 15.0 millicuries of technetium 99m Cardiolite and subsequently rest SPECT Cardiolite nuclear imaging was obtained in the horizontal long, vertical long, and short axis views. The patient underwent pharmacologic (Regadenoson) evaluation with a peak heart rate of 89 beats per minute (61% percent predicted maximal heart rate) and a resting blood pressure of 132/70 mmHg and a peak blood pressure of 132/70 mmHg. The patient was injected with 44.7 millicuries of technetium 99m Cardiolite and subsequently stress SPECT Cardiolite nuclear imaging was obtained in the horizontal long, vertical long, and short axis views. A gated Cardiolite study at peak stress was obtained. Interpretation: Rest and stress SPECT Cardiolite nuclear imaging status post realignment, normalization, and attenuation correction demonstrate the appearance of an area of diminished myocardial perfusion/tracer uptake in portions of the mid inferolateral segments without significant change between rest and stress and status post stress a small area of diminished myocardial perfusion uptake in the mid anterior segments. There is diminished end-systolic thickening and brightening. The gated Cardiolite study demonstrates diminished myocardial thickening and inward wall motion. The reported LVEF is 49%. Impression: 1. Rest and stress SPECT her nuclear imaging demonstrate myocardial perfusion changes comparing compatible with an area of previous myocardial injury/infarction in portions of the mid inferolateral segments and status post stress a small area of diminished myocardial perfusion uptake in the mid anterior segments concerning for an area of stress-induced myocardial ischemia. 2. The gated Cardiolite study reports an LVEF of 49%. This note was generated with [employer] software. It may contain incorrect words, spelling, and punctuation that were not noted in checking the note before signing.
== END | disposition home or self-care (01) ==
PROVIDERS: PCP Family Medicine; Referring Provider Nurse Practitioner Gerontology; Visit Provider Nurse Practitioner Gerontology
DX: Z12.5 Encounter for screening for malignant neoplasm of prostate (principal); I25.10 Atherosclerotic heart disease of native coronary artery without angina pectoris; Z95.1 Presence of aortocoronary bypass graft
CPT/HCPCS: 78452; 93017; A9500; A4216; J2785

== ENCOUNTER → 2022-05-22 | Outpatient (CLI) | payer MEDICARE, SELFPAY ==
[2022-05-22 10:19] LABS: AST(SGOT) 20 U/L (15-37); Alanine Aminotransfer ALT/SGPT 22 U/L (16-61); Albumin, Serum 3.4 g/dL (3.2-5.0); Alkaline Phosphatase 188 U/L (45-117); Bilirubin, Direct 0.14 mg/dL (0.00-0.30); Cholesterol 103 mg/dL (200); Globulin 3.6 g/dL (2.2-4.2); High Density Lipoprotein 39 mg/dL; PSA,Total - Annual Screen 0.03 ng/mL (0.00-4.00); Triglycerides 77 mg/dL; Very Low Density Lipoprotein 15 mg/dL (5-40)
== END | disposition home or self-care (01) ==
LOC: LAB.FUTURE 08:25 → LAB 08:25
PROVIDERS: Nurse Practitioner Gerontology; PCP Family Medicine; Referring Provider Urology; Visit Provider Urology
DX: Z12.5 Encounter for screening for malignant neoplasm of prostate (principal); E78.00 Pure hypercholesterolemia, unspecified
CPT/HCPCS: 36415; 80061; 80076; 84153; G0103

== ENCOUNTER 2023-07-31 13:26 | Inpatient (IN) | payer MEDICARE, SELFPAY ==
[2023-07-31] VITALS (30 sets, daily range): BP systolic 68–155; BP diastolic 37–118; PULSE 18–84; RESP 12–26; TEMP 35.3–36.9; O2SAT 91–100; BMI 39.0; BMI 42.7
--- NOTE | 2023-07-31 14:19 | RAD_ITS ---
STUDY: X-RAY CHEST REASON FOR EXAM: Male, 78 years old. Hypoxia, shortness of breath TECHNIQUE: Single AP portable view of the chest. COMPARISON: Comparison is made with prior study dated March 24, 2016. FINDINGS: EKG electrodes are seen. A right-sided ventriculoperitoneal shunt line is seen. Limited inspiratory effort. Atelectasis and/or infiltrates seen at the left lung base with blunting of the left costophrenic angle. Sternal cerclage wires and vascular clips are present from a prior sternotomy and coronary artery bypass graft procedure (CABG). Normal mediastinum and lala. Normal visualized pulmonary arteries. There is atherosclerotic calcification of the aortic arch with tortuosity. There are diffuse degenerative changes of the visualized thoracic spine. Bilateral shoulder replacement. There is no demonstrated abnormality of the visualized soft tissue structures of the upper abdomen. RAD/Chest 1 View (Portable) IMPRESSION: Limited inspiration with findings suggestive of atelectasis and/or infiltrate at the left lung base with blunting of the left costo phrenic angle. Electronically Signed: Arei Silva MD at 15:20 EDT ,
--- NOTE | 2023-07-31 14:19 | EKG12_ITS ---
Test Reason : HYPOTENSION Blood Pressure : / mmHG Vent. Rate : 065 BPM Atrial Rate : 065 BPM P-R Int : 148 ms QRS Dur : 104 ms QT Int : 442 ms P-R-T Axes : 026 -31 076 degrees QTc Int : 459 ms Normal sinus rhythm Left axis deviation Cannot rule out Anterior infarct , age undetermined Abnormal ECG When compared with ECG of 24-MAR-2016 13:24, No significant change was found Confirmed by DESTIN STARR, ANASTASIIA ([id number]), news assignment editor DELL MCDUFFIE ([id number]) on 08/06/2023 6:41:37 AM Referred By: Confirmed By:ANASTASIIA WEIR MD
--- NOTE | 2023-07-31 14:20 | EDS_ITS ---
HPI History of Present Illness Chief Complaint: Weakness Narrative Narrative: History and physical is mildly limited secondary to patient's baseline mental status. According to his , he is a 78-year-old male past medical history of hypertension and chronic lymphedema. She states that he has been confused over the past few weeks intermittently. They went to his [facility] office today, noticed that his blood pressure was 66 systolic. He appeared more confused to the physician. Additionally, he had a pulse ox of 83% on room air. He does not wear oxygen at home, but his states that his oxygen level is always in the 80s at baseline, but no history of COPD. She states that he has not been drinking as much over the last few days. She has withheld his Lasix because she did not want him to become more dehydrated. Additionally, while his legs have chronic skin changes from lymphedema, she has noticed that the right lower extremity has become more reddened. He has not really had fevers or chills, he only has an occasional cough. [facility] Medical History Atherosclerotic heart disease of [place] coronary artery without angina pectoris Edema Ischemic cardiomyopathy Old myocardial infarction Pure hypercholesterolemia Home Medications ropinirole 3 mg tablet 3 mg PO 4X/DAY PRN PER MD ORDER 08/10/15 [History Last Taken 02/07/18 05:45 3 MG] carbidopa 25 mg-levodopa 100 mg tablet 1 - 2 tab PO QHS 10/10/16 [History Last Taken Unknown] ibuprofen 600 mg tablet 600 mg PO PRN PRN Pain 10/10/16 [History Last Taken Unknown] gabapentin 800 mg tablet 800 mg PO QHS 30 days ##60 06/19/17 [History Last Taken Unknown] cyclobenzaprine 10 mg tablet 10 mg PO BID PRN Bladder Spasm 07/14/19 [History Last Taken Unknown] nitroglycerin 0.4 mg sublingual tablet (Nitrostat) 0.4 mg sublingual Q5M PRN chest pain #25 tabs 07/27/20 [Rx Last Taken Unknown] furosemide 40 mg tablet 40 mg PO .COMPLEX edema 04/19/21 [History Last Taken Unknown] aspirin 81 mg tablet,delayed release (Adult Aspirin Regimen) 81 mg PO QDAY #90 tabs 01/25/23 [Rx Last Taken Unknown] oxybutynin chloride 5 mg tablet 5 mg PO DAILY 01/25/23 [History Last Taken Unknown] atorvastatin 80 mg tablet See Rx Instructions .Route .COMPLEX #90 tabs 03/22/23 [Rx Last Taken Unknown] isosorbide mononitrate 20 mg tablet See Rx Instructions .Route .COMPLEX #90 tabs 03/22/23 [Rx Last Taken Unknown] losartan 50 mg tablet See Rx Instructions .Route .COMPLEX #90 tabs 05/23/23 [Rx Last Taken Unknown] carvedilol 12.5 mg tablet 25 mg PO BID 07/31/23 [History Last Taken Unknown] tramadol 50 mg tablet 50 mg PO TID PRN 07/31/23 [History Last Taken Unknown] Allergy/AdvReac Type Severity Reaction Status Date / Time lisinopril AdvReac Other Verified 07/31/23 13:03 Family History Father Colon cancer Mother CVA (cerebral vascular accident) Hypertension Surgical History Aortocoronary bypass status (~11/30/08) History of right hip replacement History of shoulder surgery Ventriculo-peritoneal shunt status Social History Smoking Status: Never smoker alcohol intake: never substance use type: does not use caffeine: Yes (1-3 servings per day) Type: coffee what type of physical activity do you participate in: none seatbelt use: always do you feel safe at home: Yes ROS ROS ED ROS Narrative Limited secondary to patient's mental status. Obtained from . Patient denies any pain. Constitutional: No fever, no chills. Low blood pressure in physicians office. Decreased p.o. intake. HEENT: No sore throat. No neck pain. No loss of vision. No rhinorrhea. Cardiovascular: No chest pain. No palpitations. No pedal edema. Respiratory: Occasional cough, no shortness of breath. Abdominal: No abdominal pain. No nausea. No vomiting. Genitourinary: No dysuria. No hematuria. Musculoskeletal: No myalgias. No arthralgias. Neurologic: No headaches. No dizziness. No lightheadedness. Skin: No rash. Positive erythema/redness right lower extremity noticed today by . Psychiatric: No depression. No anxiety. EXAM Physical Exam Narrative Exam Narrative: Afebrile. Vital signs noted. Normotensive. HEENT: Normocephalic. Atraumatic. PERRL, EOMI. Neck soft and supple. No point tenderness or step off. Cardiovascular: Regular rate and rhythm. No murmurs, rubs, or gallops appreciated. Respiratory: No tachypnea. Lungs clear to auscultation bilaterally. Gastrointestinal: Abdomen soft, nontender, with normoactive bowel sounds. No rebound or guarding. Neurological: Awake. Alert. Nonfocal, nonlateralizing. Skin: No rash. Positive erythema right lower extremity anterior tibial area, consistent with cellulitis. Chronic changes left lower extremity. Musculoskeletal: No pedal edema. Full range of motion extremities. Const Vital Signs: 07/31/23 13:26 07/31/23 13:33 07/31/23 13:37 Temperature 97.8 F Temperature Source Temporal Pulse Rate 65 67 Respiratory Rate 17 16 Respiratory Pattern Normal Blood Pressure 103/47 L 90/73 Blood Pressure Mean 65 78 Pulse Ox 91 95 Oxygen Delivery Method Room Air Nasal Cannula Oxygen Flow Rate (L/min) 2 MDM MDM MDM Narrative Medical decision making narrative: In the differential diagnosis is dehydration versus sepsis from cellulitis in the right lower extremity versus intravascular volume depletion. He is hypoxi c/borderline hypoxic at 91% on room air here and was placed on nasal cannula. He may have some component of COPD as well. Discharge Plan Triage Chief Complaint: Weakness Other Complaint: Fatigue ED Provider: Julio Goode Dx/Rx/DC Orders Prescriptions: No Action gabapentin 800 mg tablet 800 mg PO QHS 30 Days Qty: 60 Patient Comments: take 1 - 2 Tablets by mouth every evening about 90 min prior to bedtime. furosemide 40 mg tablet 40 mg PO .COMPLEX Rx Instructions: 40 mg PO 2 tabs in the am and 1 in the pm; nitroglycerin [Nitrostat] 0.4 mg tablet, sublingual 0.4 mg SUBLINGUAL Q5M PRN (Reason: chest pain) Qty: 25 3RF oxybutynin chloride 5 mg tablet 5 mg PO DAILY aspirin [Adult Aspirin Regimen] 81 mg tablet,delayed release (DR/EC) 81 mg PO QDAY Qty: 90 3RF carvedilol 12.5 mg tablet 25 mg PO BID Rx Instructions: must administer with a meal/food tramadol 50 mg tablet 50 mg PO TID PRN ropinirole 3 MG tablet 3 mg PO 4X/DAY PRN (Reason: PER MD ORDER) cyclobenzaprine 10 mg tablet 10 mg PO BID PRN (Reason: Bladder Spasm) ibuprofen 600 MG tablet 600 mg PO PRN PRN (Reason: Pain) carbidopa-levodopa 1 TABLET tablet 1 - 2 tab PO QHS isosorbide mononitrate 20 mg tablet See Rx Instructions .ROUTE .COMPLEX Qty: 90 3RF Dose Instruction: TAKE 1 TABLET DAILY Rx Instructions: TAKE 1 TABLET DAILY atorvastatin 80 mg tablet See Rx Instructions .ROUTE .COMPLEX Qty: 90 3RF Dose Instruction: TAKE 1 TABLET AT BEDTIME Rx Instructions: TAKE 1 TABLET AT BEDTIME losartan 50 mg tablet See Rx Instructions .ROUTE .COMPLEX Qty: 90 3RF Dose Instruction: take 1 tablet by mouth daily Rx Instructions: take 1 tablet by mouth daily Primary Care Provider: Darnell Bryant Referrals: Darnell Bryant MD [Primary Care Provider] -
--- NOTE | 2023-07-31 14:20 | EX.ED.DYSGE1 ---
HPI History of Present Illness Chief Complaint: Weakness Narrative Narrative: History and physical is mildly limited secondary to patient's baseline mental status. According to his , he is a 78-year-old male past medical history of hypertension and chronic lymphedema. She states that he has been confused over the past few weeks intermittently. 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 He appeared more confused to the physician. Additionally, he had a pulse ox of 83% on room air. He does not wear oxygen at home, but his states that his oxygen level is always in the 80s at baseline, but no history of COPD. She states that he has not been drinking as much over the last few days. She has withheld his Lasix because she did not want him to become more dehydrated. Additionally, while his legs have chronic skin changes from lymphedema, she has noticed that the right lower extremity has become more reddened. He has not really had fevers or chills, he only has an occasional cough. [facility] Medical History Atherosclerotic heart disease of [place] coronary artery without angina pectoris Edema Ischemic cardiomyopathy Old myocardial infarction Pure hypercholesterolemia Home Medications ropinirole 3 mg tablet 3 mg PO 4X/DAY PRN PER MD ORDER 08/10/15 [History Last Taken 02/07/18 05:45 3 MG] carbidopa 25 mg-levodopa 100 mg tablet 1 - 2 tab PO QHS 10/10/16 [History Last Taken Unknown] ibuprofen 600 mg tablet 600 mg PO PRN PRN Pain 10/10/16 [History Last Taken Unknown] gabapentin 800 mg tablet 800 mg PO QHS 30 days ##60 06/19/17 [History Last Taken Unknown] cyclobenzaprine 10 mg tablet 10 mg PO BID PRN Bladder Spasm 07/14/19 [History Last Taken Unknown] nitroglycerin 0.4 mg sublingual tablet (Nitrostat) 0.4 mg sublingual Q5M PRN chest pain #25 tabs 07/27/20 [Rx Last Taken Unknown] furosemide 40 mg tablet 40 mg PO .COMPLEX edema 04/19/21 [History Last Taken Unknown] aspirin 81 mg tablet,delayed release (Adult Aspirin Regimen) 81 mg PO QDAY #90 tabs 01/25/23 [Rx Last Taken Unknown] oxybutynin chloride 5 mg tablet 5 mg PO DAILY 01/25/23 [History Last Taken Unknown] atorvastatin 80 mg tablet See Rx Instructions .Route .COMPLEX #90 tabs 03/22/23 [Rx Last Taken Unknown] isosorbide mononitrate 20 mg tablet See Rx Instructions .Route .COMPLEX #90 tabs 03/22/23 [Rx Last Taken Unknown] losartan 50 mg tablet See Rx Instructions .Route .COMPLEX #90 tabs 05/23/23 [Rx Last Taken Unknown] carvedilol 12.5 mg tablet 25 mg PO BID 07/31/23 [History Last Taken Unknown] tramadol 50 mg tablet 50 mg PO TID PRN 07/31/23 [History Last Taken Unknown] Allergy/AdvReac Type Severity Reaction Status Date / Time lisinopril AdvReac Other Verified 07/31/23 13:03 Family History Father Colon cancer Mother CVA (cerebral vascular accident) Hypertension Surgical History Aortocoronary bypass status (~11/30/08) History of right hip replacement History of shoulder surgery Ventriculo-peritoneal shunt status Social History Smoking Status: Never smoker alcohol intake: never substance use type: does not use caffeine: Yes (1-3 servings per day) Type: coffee what type of physical activity do you participate in: none seatbelt use: always do you feel safe at home: Yes ROS ROS ED ROS Narrative Limited secondary to patient's mental status. Obtained from . Patient denies any pain. Constitutional: No fever, no chills. Low blood pressure in physicians office. Decreased p.o. intake. HEENT: No sore throat. No neck pain. No loss of vision. No rhinorrhea. Cardiovascular: No chest pain. No palpitations. No pedal edema. Respiratory: Occasional cough, no shortness of breath. Abdominal: No abdominal pain. No nausea. No vomiting. Genitourinary: No dysuria. No hematuria. Musculoskeletal: No myalgias. No arthralgias. Neurologic: No headaches. No dizziness. No lightheadedness. Skin: No rash. Positive erythema/redness right lower extremity noticed today by . Psychiatric: No depression. No anxiety. EXAM Physical Exam Narrative Exam Narrative: Afebrile. Vital signs noted. Normotensive. HEENT: Normocephalic. Atraumatic. PERRL, EOMI. Neck soft and supple. No point tenderness or step off. Cardiovascular: Regular rate and rhythm. No murmurs, rubs, or gallops appreciated. Respiratory: No tachypnea. Lungs clear to auscultation bilaterally. Gastrointestinal: Abdomen soft, nontender, with normoactive bowel sounds. No rebound or guarding. Neurological: Awake. Alert. Nonfocal, nonlateralizing. Skin: No rash. Positive erythema right lower extremity anterior tibial area, consistent with cellulitis. Chronic changes left lower extremity. Musculoskeletal: No pedal edema. Full range of motion extremities. Const Vital Signs: 07/31/23 13:26 07/31/23 13:33 07/31/23 13:37 Temperature 97.8 F Temperature Source Temporal Pulse Rate 65 67 Respiratory Rate 17 16 Respiratory Pattern Normal Blood Pressure 103/47 L 90/73 Blood Pressure Mean 65 78 Pulse Ox 91 95 Oxygen Delivery Method Room Air Nasal Cannula Oxygen Flow Rate (L/min) 2 07/31/23 14:58 07/31/23 14:26 07/31/23 15:00 Temperature Temperature Source Pulse Rate 65 62 Respiratory Rate 16 16 Respiratory Pattern Blood Pressure 115/62 86/55 L Blood Pressure Mean 79 65 Pulse Ox 100 100 Oxygen Delivery Method Nasal Cannula Nasal Cannula Nasal Cannula Oxygen Flow Rate (L/min) 4 4 3 07/31/23 16:07 07/31/23 15:24 07/31/23 15:30 Temperature Temperature Source Pulse Rate Respiratory Rate Respiratory Pattern Blood Pressure Blood Pressure Mean Pulse Ox 95 100 100 Oxygen Delivery Method Nasal Cannula Oxygen Flow Rate (L/min) 3 07/31/23 15:45 07/31/23 16:00 07/31/23 16:15 Temperature Temperature Source Pulse Rate 68 65 64 Respiratory Rate 26 H 17 14 Respiratory Pattern Blood Pressure 119/61 101/52 L 115/57 L Blood Pressure Mean 80 66 69 Pulse Ox 100 100 95 Oxygen Delivery Method Nasal Cannula Oxygen Flow Rate (L/min) 3 Sepsis Attestation Sepsis Alert: Yes Sepsis Attestation: Agree w/Sepsis Date exam was performed: 07/31/23 Time exam was performed: 16:29 Possible Source of Sepsis: Skin/soft tissue Sepsis Organ Dysfunction Criteria Present: SBP < 90 mmHg or MAP < 65 mmHg, SBP decrease of more than 40 mmHg and New/Unexplained change in mental status MDM MDM MDM Narrative Medical decision making narrative: In the differential diagnosis is dehydration versus sepsis from cellulitis in the right lower extremity versus intravascular volume depletion. He is hypoxic/borderline hypoxic at 91% on room air here and was placed on nasal cannula. He may have some component of COPD as well. CT of the brain was obtained and is consistent with normal pressure hydrocephalus with shunt, per his , he is at his baseline. I reviewed his laboratory work and he has an elevated white count/leukocytosis of 13.2 with hemoglobin stable at 12.9, platelet count 310. Coagulation studies are negative with an INR of 1.2 and PT 14.7. APTT 34.4. EKG obtained and interpreted by myself independently as normal sinus rhythm at 65 bpm without ectopy or acute ST changes. No STEMI. Troponin is normal at 15. Urinalysis obtained and reviewed with 5 ketones and positive leukocyte esterase. Microanalysis is pending. Chest x-ray 1 view interpreted by myself independently shows atelectasis in the left base with small pleural effusion. I reviewed the radiology report which confirms my independent interpretation. Lactic acid is normal at 1.9. He is transiently hypotensive. However I do feel he is meeting SIRS/sepsis criteria with the most likely source being his right lower extremity. He was started on Unasyn. Blood cultures and urine cultures are currently pending. I discussed the patient with Dr. Ayon who would like him admitted to the ICU. Disposition is admit in guarded condition. History & Record Review Discussion w/independent historian: Family (Spouse) Additional record(s) reviewed:: Prior labs Lab Data Attestation: I reviewed the patient's lab results. Labs: Laboratory Results - last 24 hr 07/31/23 07/31/23 13:56 15:43 WBC 13.2 H RBC 4.88 Hgb 12.9 L Hct 41.9 MCV 85.9 MCH 26.4 L MCHC 30.8 L RDW Std Deviation 50.7 H RDW Coeff of Pema 16.1 H Plt Count 310 MPV 10.1 Immature Gran % (Auto) 0.700 Neut % (Auto) 72.0 H Lymph % (Auto) 14.3 L [place] % (Auto) 11.8 H Eos % (Auto) 0.7 Baso % (Auto) 0.5 Absolute Neuts (auto) 9.5 H Absolute Lymphs (auto) 1.89 Nucleated RBC % 0 Differential Comment SCANNED Diff Path Review July foll PT 14.7 INR 1.2 APTT 34.4 Sodium 138 Potassium 4.2 Chloride 104 Carbon Dioxide 31.0 Anion Gap 3 L BUN 21 H Creatinine 1.33 H Estim Creat Clear Calc 62.26 Est GFR (MDRD) Af Amer 67 Est GFR (MDRD) Non-Af 56 L BUN/Creatinine Ratio 15.8 Glucose 114 H Lactic Acid 1.9 Calcium 8.6 Total Bilirubin 0.80 AST 22 ALT 18 Alkaline Phosphatase 124 H Troponin I High Sens 15 Total Protein 6.7 Albumin 2.8 L Globulin 3.9 Albumin/Globulin Ratio 0.7 L Urine Color Yellow Urine Clarity Clear Urine pH 5.0 Ur Specific [place] 1.020 Urine Protein 15 H Urine Glucose (UA) Normal Urine Ketones 5 H Urine Occult Blood 10 H Urine Nitrite Negative Urine Bilirubin 1 H Urine Urobilinogen 1 H Ur Leukocyte Esterase 25 H Radiography Chest X-Ray - ED: 1 View, Read by ED Physician and Read by Radiologist Diagnostic Testing: Clinical Impression(s) from Imaging Studies Chest X-Ray 07/31/23 14:19 IMPRESSION: Limited inspiration with findings suggestive of atelectasis and/or infiltrate at the left lung base with blunting of the left costo phrenic angle. Electronically Signed: Arie Silva MD at 15:20 EDT , Brain CT 07/31/23 14:25 IMPRESSION: Findings in keeping with normal pressure hydrocephalus. A ventriculoperitoneal shunt tube is seen with the tip in the anterior aspect of the left lateral ventricle. There has been no change since prior study. Electronically Signed: Arie Silva MD at 15:31 EDT , Management Discussion w/another healthcare provider: Hospitalist (Dr. Ayon) Critical Care Time Critical care time (excluding procedures): 30-74 minutes (31), Including time spent:, Discussing w/Patient &/or Family/Sports Marketing Specialist, Discussing w/Consultants, Arranging Admission or Transfer and Performing Direct Patient Care at Bedside Discharge Plan Dx/Rx/DC Orders Clinical Impression: Acute kidney injury, Acute hypotension, Cellulitis of right lower extremity, SIRS (systemic inflammatory response syndrome) Disposition Disposition: Acute Care [facility]
--- NOTE | 2023-07-31 14:25 | CT_ITS ---
STUDY: CT BRAIN WITHOUT CONTRAST REASON FOR EXAM: Male, 78 years old. Confusion, mental status change RADIATION DOSAGE (If Supplied By Facility): CTDIvol = ( 44.99 ) mGy, DLP = ( 880.47 ) mGycm TECHNIQUE: Transaxial CT imaging of the brain was performed without administration of intravenous contrast material. Individualized dose optimization techniques were used for this CT. COMPARISON: Comparison is made with prior study June 07, 2016. FINDINGS: Normal soft tissue structures. Normal calvarium. There is disproportionate enlargement of the lateral and third ventricles, as compared to the extra-axial spaces. The findings suggest normal pressure hydrocephalus (NPH). A shunt tube is seen with the tip in the anterior aspect of the left lateral ventricle. Normal white matter tracts of the cerebral hemispheres. Normal basal ganglia and thalami. Normal brainstem. Normal cerebellum. There is no intracranial hemorrhage. There are no findings of an acute ischemic infarction. Atherosclerotic calcification of the vertebral arteries and cavernous portions of the internal carotid arteries bilaterally. Normal visualized paranasal sinuses. CT/Brain/Head without Contrast IMPRESSION: Findings in keeping with normal pressure hydrocephalus. A ventriculoperitoneal shunt tube is seen with the tip in the anterior aspect of the left lateral ventricle. There has been no change since prior study. Electronically Signed: Arie Silva MD at 15:31 EDT ,
[2023-07-31 14:47] LABS: Absolute Lymphocyte Count 1.89 X10^3/uL (0.83-4.51); Absolute Neutrophil Count 9.5 X10^3/uL (2.0-7.7); Basophil# 0.06 X10^3/uL; Basophil% 0.5 % (0-1); Eosinophil# 0.09 X10^3/uL; Eosinophils% 0.7 % (0-5); Hematocrit 41.9 % (40-54); Hemoglobin 12.9 g/dL (13.0-16.5); Lymphocyte # 1.89 X10^3/ul (0.83-4.51); Lymphocyte % 14.3 % (19-41); Mean Corp Hgb Conc 30.8 g/dL (32-36); Mean Corpuscular Hgb 26.4 pg (27.0-32.0); Mean Corpuscular Volume 85.9 fL (80-94); Mean Platelet Vol. 10.1 fl (6.2-12.0); Monocyte# 1.56 X10^3/uL; Monocyte% 11.8 % (0-10); NRBC Flagged by Analyzer 0 % (0-5); POSITIVE DIFFERENTIAL YES; Platelet Count 310 K/mm3 (150-450); RBC Distribution Width CV 16.1 % (11.6-14.6); RBC Distribution Width SD 50.7 fl (35.1-43.9); Red Blood Count 4.88 M/mm3 (4.6-6.2); White Blood Count 13.2 K/mm3 (4.4-11.0)
[2023-07-31 14:49] LABS: Differential Indicated SCAN CRITERIA MET
[2023-07-31 15:01] LABS: ALB/GLOB Ratio 0.7 RATIO (0.9-2.4); AST(SGOT) 22 U/L (15-37); Alanine Aminotransfer ALT/SGPT 18 U/L (16-61); Albumin, Serum 2.8 g/dL (3.2-5.0); Alkaline Phosphatase 124 U/L (45-117); Anion Gap 3 (5-15); BUN 21 mg/dL (7-18); BUN/Creat Ratio 15.8 RATIO (10-20); Calcium,Total 8.6 mg/dL (8.5-10.1); Chloride 104 mmol/L (98-107); Creatinine, Serum 1.33 mg/dL (0.70-1.30); EST Glomerular Filtration Rate 56 mL/min (>60); Est Glom Filt Rate - Afr Amer 67 mL/min (>60); Estimated Creatinine Clearance 62.26 ml/min; Globulin 3.9 g/dL (2.2-4.2); Glucose 114 mg/dL (74-106); Lactic Acid 1.9 mmol/L (0.4-1.9); Potassium 4.2 mmol/L (3.5-5.1); Protein, Total 6.7 g/dL (6.4-8.2); Sodium Level 138 mmol/L (136-145); Troponin-I HS 15 pg/mL (3.0-78.0)
[2023-07-31] MEDS: 0.9% Normal Saline (1000mL) 1,000 ML 999 ML IV ×5 (15:03→19:56)
[2023-07-31 15:28] LABS: Partial Thromboplast Time 34.4 Seconds (24.1-36.2)
[2023-07-31 15:40] LABS: Differential Comment SCANNED
[2023-07-31 15:55] LABS: Bacteria 0 SEEN /hpf (None Seen); Red Blood Cells-Urine 0 SEEN /hpf (0-5); Squamous Epithelial Cells - UA 0 SEEN /hpf (0-5)
[2023-07-31 16:00] LABS: International Normalized Ratio 1.2; Prothrombin Time (Protime)PT. 14.7 SECONDS (11.7-14.9)
[2023-07-31 16:10] LABS: Color, Urine Yellow (Yellow); Glucose, Dipstick Normal (Normal); Ketone-Dipstick 5 mg/dl (Negative); Leukocyte Esterase-Dipstick 25 /ul (Negative); Nitrite-Dipstick Negative (Negative); Occult Blood-Urine 10 /ul (Negative); Protein-Dipstick 15 mg/dl (Negative); Urine Clarity Clear (Clear); Urine Urobilinogen 1 mg/dl (Normal)
[2023-07-31 16:12] LABS: Urine Bilirubin Dipstick 1 mg/dL (Negative)
--- NOTE | 2023-07-31 16:20 | HP.PCM.HOS_ITS ---
[facility] - General General Date of Admission: 07/31/23 Date of Service: 07/31/23 Chief Complaint: Confused, Hypotensive and Hypoxic. HPI Narrative MIGUEL GAYLE, is a 78 M with a past medical history of essential hypertension, hyperlipidemia, normal pressure hydrocephalus; status post NE[employer] LECTURER shunt, chronic dementia, morbid obesity; with BMI of 42.7 this admission, coronary artery disease; status post coronary artery bypass graft x 4 (2008) and HI, ischemic cardiomyopathy, OA; with history of right total hip replacement x 2 and chronic lower extremity lymphedema with ulcers with recurrent lower extremity cellulitis who was evaluated in the office of Dr. Cerrato of cardiology when a 'rapid response' was called due to patient's confusion and hypotension with blood pressure in the ~60 mmHg systolic range and a pulse oximeter of 83% on room air. Mr. Gayle is not a fully reliable historian at this time so information was gathered from the chart, medical staff, computer and his at the bedside. According to the records his reports he has been more intermittently confused over the past few weeks with a baseline oxygen level of approximately 85% on room air but he does not wear oxygen at home. She denies a history of COPD or other chronic lung disease. She also states he has not been drinking more than usual over the past few days so she then held his Lasix because she did not want him to become more dehydrated. She then noticed intense reddening of his right greater than left lower extremity worse than his typical lymphedema and chronic venous stasis changes. She admits to occasional cough but denies fever, chills, nausea, vomiting, diarrhea or constipation. In the ER he was diagnosed with sepsis suspected to be due to bilateral lower extremity cellulitis in the setting of chronic bilateral lower extremity lymphedema with leukocytosis of 13.2 present on admission and chest x-ray questionable for left lower lobe infiltrate consistent with possible early pneumonia complicated by clinical evidence of respiratory insufficiency and acute metabolic encephalopathy in the setting of chronic dementia and he was then admitted to the ICU for ongoing care under the sepsis protocol for stay that is expected to be greater than 48 hours. [facility] [place] Medical History (Updated 07/31/23 @ 18:[address] Duran Lucio, ) Atherosclerotic heart disease of tribal coronary artery without angina pectoris Edema Ischemic cardiomyopathy Old myocardial infarction Pure hypercholesterolemia Home Medications ropinirole 3 mg tablet 3 mg PO 4X/DAY PRN PER MD ORDER 08/10/15 [History Last Taken 02/07/18 05:45 3 MG] carbidopa 25 mg-levodopa 100 mg tablet 1 - 2 tab PO QHS TREMORS 10/10/16 [History Last Taken Unknown] ibuprofen 600 mg tablet 600 mg PO PRN PRN Pain 10/10/16 [History Last Taken Unknown] gabapentin 800 mg tablet 800 mg PO QHS PAIN 30 days ##60 06/19/17 [History Last Taken Unknown] cyclobenzaprine 10 mg tablet 10 mg PO BID PRN Bladder Spasm 07/14/19 [History Last Taken Unknown] nitroglycerin 0.4 mg sublingual tablet (Nitrostat) 0.4 mg sublingual Q5M PRN chest pain #25 tabs 07/27/20 [Rx Last Taken Unknown] furosemide 40 mg tablet 40 mg PO .COMPLEX edema 04/19/21 [History Last Taken Unknown] aspirin 81 mg tablet,delayed release (Adult Aspirin Regimen) 81 mg PO QDAY #90 tabs 01/25/23 [Rx Last Taken Unknown] oxybutynin chloride 5 mg tablet 5 mg PO DAILY 01/25/23 [History Last Taken Unknown] atorvastatin 80 mg tablet See Rx Instructions .Route .COMPLEX #90 tabs 03/22/23 [Rx Last Taken Unknown] isosorbide mononitrate 20 mg tablet See Rx Instructions .Route .COMPLEX #90 tabs 03/22/23 [Rx Last Taken Unknown] losartan 50 mg tablet See Rx Instructions .Route .COMPLEX #90 tabs 05/23/23 [Rx Last Taken Unknown] carvedilol 12.5 mg tablet 25 mg PO BID 07/31/23 [History Last Taken Unknown] pramipexole 1.5 mg tablet,extended release 24 hr (Mirapex ER) 1.5 mg PO QHS RESTLESS LEGS 07/31/23 [History Last Taken Unknown] tramadol 50 mg tablet 50 mg PO TID PRN 07/31/23 [History Last Taken Unknown] trospium 20 mg tablet 20 mg PO BID BLADDER 07/31/23 [History Last Taken Unknown] Allergy/AdvReac Type Severity Reaction Status Date / Time lisinopril AdvReac Other Verified 07/31/23 13:03 Family History Father Colon cancer Mother CVA (cerebral vascular accident) Hypertension Surgical History (Updated 07/31/23 @ 18:[address] Duran Lucio DO) Aortocoronary bypass status (~11/30/08) History of right hip replacement History of shoulder surgery Ventriculo-peritoneal shunt status Social History Smoking Status: Never smoker alcohol intake: never substance use type: does not use caffeine: Yes (1-3 servings per day) Type: coffee what type of physical activity do you participate in: none seatbelt use: always do you feel safe at home: Yes ROS ROS Narrative Patient is acutely ill and encephalopathic and his confusion is preventing review of systems from being able to be completed. Vital Signs Vital Signs Vital Signs: 07/31/23 13:26 07/31/23 13:33 07/31/23 13:37 Temperature 97.8 F Temperature Source Temporal Pulse Rate 65 67 Respiratory Rate 17 16 Respiratory Pattern Normal Blood Pressure 103/47 L 90/73 Blood Pressure Mean 65 78 Pulse Ox 91 95 Oxygen Delivery Method Room Air Nasal Cannula Oxygen Flow Rate (L/min) 2 07/31/23 14:58 07/31/23 14:26 07/31/23 15:00 Temperature Temperature Source Pulse Rate 65 62 Respiratory Rate 16 16 Respiratory Pattern Blood Pressure 115/62 86/55 L Blood Pressure Mean 79 65 Pulse Ox 100 100 Oxygen Delivery Method Nasal Cannula Nasal Cannula Nasal Cannula Oxygen Flow Rate (L/min) 4 4 3 07/31/23 16:07 07/31/23 15:24 07/31/23 15:30 Temperature Temperature Source Pulse Rate Respiratory Rate Respiratory Pattern Blood Pressure Blood Pressure Mean Pulse Ox 95 100 100 Oxygen Delivery Method Nasal Cannula Oxygen Flow Rate (L/min) 3 07/31/23 15:45 07/31/23 16:00 07/31/23 16:15 Temperature Temperature Source Pulse Rate 68 65 64 Respiratory Rate 26 H 17 14 Respiratory Pattern Blood Pressure 119/61 101/52 L 115/57 L Blood Pressure Mean 80 66 69 Pulse Ox 100 100 95 Oxygen Delivery Method Nasal Cannula Oxygen Flow Rate (L/min) 3 Weight Weight: 272 lb 0.807 oz Body Mass Index (BMI) 39.0 Physical Exam Const no apparent distress Constitutional Narrative: Patient is lethargic but arousable. He is morbidly obese and appears chr onically ill. Orientation / Consciousness: confused, disoriented and lethargic HEENT normocephalic, head/scalp atraumatic and hearing grossly normal bilaterally HEENT Narrative: Mucous membranes dry. Eyes PERRL and EOMs intact bilaterally Neck supple Resp Resp Narrative: Decreased breath sounds throughout. Cardio regular rate and regular rhythm GI normal to inspection, nondistended, normoactive bowel sounds, soft to palpation, non-tender and non-distended GI Narrative: Morbidly obese. Extremity Extremity Narrative: 3-4+ right greater than left lower extremity edema with severe erythema and chronic venous stasis changes from the knee to the ankle bilaterally. No signs of vascular compromise. Skin Skin Narrative: 3-4+ right greater than left lower extremity edema with severe erythema and chronic venous stasis changes from the knee to the ankle bilaterally. Neuro moves all extremities Neuro Narrative: Patient is lethargic but arousable. Psych Psych Narrative: Patient is lethargic but arousable. Results Medical Records Data Attestation: I reviewed the patient's medical records Lab / Micro Data Attestation: I reviewed the patient's lab results. 07/31/23 13:56 07/31/23 13:56 Labs: Laboratory Results - last 24 hr 07/31/23 13:56: WBC 13.2 H, RBC 4.88, Hgb 12.9 L, Hct 41.9, MCV 85.9, MCH 26.4 L , MCHC 30.8 L, RDW Std Deviation 50.7 H, RDW Coeff of Pema 16.1 H, Plt Count 310, MPV 10.1, Immature Gran % (Auto) 0.700, Neut % (Auto) 72.0 H, Lymph % (Auto) 14.3 L, [place] % (Auto) 11.8 H, Eos % (Auto) 0.7, Baso % (Auto) 0.5, Absolute Neuts (auto) 9.5 H, Absolute Lymphs (auto) 1.89, Nucleated RBC % 0, Differential Comment SCANNED, Diff Path Review July, PT 14.7, INR 1.2, APTT 34.4, Sodium 138, Potassium 4.2, Chloride 104, Carbon Dioxide 31.0, Anion Gap 3 L, BUN 21 H, Creatinine 1.33 H, Estim Creat Clear Calc 62.26, Est GFR (MDRD) Af Amer 67, Est GFR (MDRD) Non-Af 56 L, BUN/Creatinine Ratio 15.8, Glucose 114 H, Lactic Acid 1.9, Calcium 8.6, Total Bilirubin 0.80, AST 22, ALT 18, Alkaline Phosphatase 124 H, Troponin I High Sens 15, Total Protein 6.7, Albumin 2.8 L, Globulin 3.9, Albumin/Globulin Ratio 0.7 L 07/31/23 15:43: Urine Color Yellow, Urine Clarity Clear, Urine pH 5.0, Ur Specific [place] 1.020, Urine Protein 15 H, Urine Glucose (UA) Normal, Urine Ketones 5 H, Urine Occult Blood 10 H, Urine Nitrite Negative, Urine Bilirubin 1 H, Urine Urobilinogen 1 H, Ur Leukocyte Esterase 25 H Imaging Radiology Impression Chest X-Ray 07/31/23 14:19 IMPRESSION: Limited inspiration with findings suggestive of atelectasis and/or infiltrate at the left lung base with blunting of the left costo phrenic angle. Electronically Signed: Arie Silva MD at 15:20 EDT , Brain CT 07/31/23 14:25 IMPRESSION: Findings in keeping with normal pressure hydrocephalus. A ventriculoperitoneal shunt tube is seen with the tip in the anterior aspect of the left lateral ventricle. There has been no change since prior study. Electronically Signed: Arie Silva MD at 15:31 EDT , Assessment & Plan Assessment/Plan (1) Sepsis: QUALIFIERS: Sepsis type: sepsis due to unspecified organism Sepsis acute organ dysfunction status: with acute organ dysfunction Severe sepsis acute organ dysfunction type: encephalopathy Severe sepsis shock status: with septic shock Qualified Code(s): A41.9 - Sepsis, unspecified organism; R65.21 - Severe sepsis with septic shock; G93.41 - Metabolic encephalopathy (2) Cellulitis of right lower extremity: (3) Acute hypotension: (4) Metabolic encephalopathy: (5) Chronic dementia: (6) NPH (normal pressure hydrocephalus): (7) Ventriculo-peritoneal shunt status: PLAN: Plan 1. Sepsis due to bilateral lower extremity cellulitis in the setting of chronic lower extremity lymphedema with ulceration with leukocytosis of 13.2 present on admission - Admit to ICU for treatment under the sepsis protocol. Continue broad-spectrum antibiotics with IV vancomycin and IV Zosyn and await culture and sensitivity data. Give Tylenol as needed pain or fever. Check a bilateral lower extremity Dopplers to evaluate for possible DVT with asymmetric and severe swelling. 2. Left lower lobe infiltrate on chest x-ray suspicious for possible early pneumonia complicating #1 - Resume broad-spectrum antibiotics to cover nosocomial pathogens. Check urine antigens for S. pneumoniae and Legionella. 3. Respiratory insufficiency evidenced by room air saturation in the 80% range arising from #1 & #2 - Wean supplemental oxygen as tolerated. 4. Acute metabolic encephalopathy in the setting of chronic dementia and normal pressure hydrocephalus; status post NE[employer] E[employer] LECTURER shunt due to #1 - #3 - Continue supportive care monitor for improvement. 5. Essential hypertension - Hold scheduled antihypertensives until infections i n #1 & #2 have been neutralized. 6. Hyperlipidemia - Resume statin. 7. Obesity; with BMI of 39 this admission - Weight loss will be recommended. 8. CAD; status post coronary artery bypass graft x 4 (2008) and HI with ischemic cardiomyopathy - Noted. Serial as troponin in light of acute illness and check echocardiogram to evaluate LVEF. 9. OA; with history of right total hip replacement x 2 - Noted. 10. DVT prophylaxis - Give full dose Lovenox until Doppler of lower extremities is confirmed negative for DVT.. Total time: Approximately 75 minutes. Sepsis Attestation Sepsis Alert: Yes Sepsis Attestation: Sepsis Ruled Out Date exam was performed: 07/31/23 Time exam was performed: 16:00 Possible Source of Sepsis: Skin/soft tissue Sepsis Organ Dysfunction Criteria Present: SBP < 90 mmHg or MAP < 65 mmHg and New/Unexplained change in mental status Fluid Resuscitation Fluid resuscitation indicated?: Yes Fluid Resuscitation ordered: 30 ml/kg fluid bolus ordered Amount of fluid ordered: 3 Sepsis Note Date exam was performed: 07/31/23 Time exam was performed: 18:30 Sepsis Attestation: Sepsis re-evaluation was performed Response to fluids: Fluid responsive hypotension Charges/Coding Visit Charges Inpatient E&M: 52737 Init Hosp L3
--- NOTE | 2023-07-31 16:46 | ECHOCS_ITS ---
Reason For Study: other Procedure This was a 2D Doppler, Color Flow transthoracic echocardiogram. The study was technically difficult. Contrast injection was performed. Exam performed portable in ICU/CCU. Left Ventricle Normal LV size. Left ventricular systolic function is normal. The estimated ejection fraction is 60 %. Stage 2 diastolic dysfunction. No regional wall motion abnormalities noted. Right Ventricle Normal RV size. Normal systolic function. Atria The left atrium is moderately enlarged. Normal right atrium. Mitral Valve Normal mitral valve. Tricuspid Valve Normal tricuspid valve. Moderate (2+) tricuspid valve insufficiency. Pulmonary artery systolic pressure is 62 mmHg. Moderate pulmonary hypertension. Aortic Valve The aortic valve is not well visualized. Pulmonic Valve The pulmonic valve is not well visualized. Great Vessels Normal aortic root. Pericardium/Pleural No pericardial effusion. Medication Diluted definity 2ml given slow IV push to enhance endocardial definition. MMode/2D Measurements & Calculations LVIDd: 5.8 cm IVSd: 0.83 cm Ao root diam: 3.8 cm LVIDs: 4.2 cm LVPWd: 1.2 cm LA dimension: 4.8 cm RVDd: 4.4 cm FS: 27.9 % LAV(MOD-bp): 95.4 ml LVAd ap4: 42.8 cm2 SV(MOD-sp4): 77.6 ml LAV(MOD-bp) Indexed: 39.5 ml/m2 LVLd ap4: 9.2 cm LAV(MOD-sp2): 77.0 ml EDV(MOD-sp4): 160.7 ml LAV(MOD-sp4): 113.3 ml EDV(sp4-el): 168.3 ml LVAs ap4: 27.3 cm2 LVLs ap4: 7.6 cm ESV(MOD-sp4): 83.1 ml ESV(sp4-el): 83.2 ml EF(MOD-sp4): 48.3 % EF(sp4-el): 50.6 % SV(sp4-el): 85.2 ml LA A4 area: 30.5 cm2 RA A4 area: 17.3 cm2 TAPSE: 1.8 cm Time Measurements MV dec time: 0.22 sec Doppler Measurements & Calculations MV E max edil: 89.8 cm/sec Lat Peak E' Edil: 11.3 cm/sec Med Peak E' Edil: 8.9 cm/sec MV A max edil: 48.9 cm/sec E/E' lat: 8.0 E/E' med: 10.1 MV E/A: 1.8 MV V2 max: 99.2 cm/sec MV P1/2t max edil: 99.5 cm/sec Ao V2 max: 116.2 cm/sec MV max P.9 mmHg MV P1/2t: 68.1 msec Ao max P.4 mmHg MV V2 mean: 46.2 cm/sec MV mean P.1 mmHg MV dec slope: 428.1 cm/sec2 MV V2 VTI: 24.3 cm MVA(P1/2t): 3.2 cm2 LV V1 max: 72.7 cm/sec PA V2 max: 84.7 cm/sec TR max edil: 380.4 cm/sec LV V1 max P.1 mmHg TR max P.9 mmHg LV V1 mean P.1 mmHg LV V1 mean: 50.0 cm/sec LV V1 VTI: 17.0 cm ECHO/Echo Complete W/ Contrast Interpretation Summary Normal LV size. Left ventricular systolic function is normal. The estimated ejection fraction is 60 %. The left atrium is moderately enlarged. Stage 2 diastolic dysfunction. Pulmonary artery systolic pressure is 62 mmHg. Moderate pulmonary hypertension. Ordering Physician: Duran Lucio Performed By: Chandra Higgins RCS
[2023-07-31 16:49] LABS: Hyaline Cast 0-5 SEEN /lpf (0-5); Mucous, Urine 2+ /hpf (<or=2+); White Blood Cells 0-5 SEEN /hpf (0-5)
[2023-07-31] MEDS: Ampicillin/Sulbactam 3 GM in 0.9% Normal Saline (100mL MB+) 100 ML IV (16:53)
--- NOTE | 2023-07-31 17:57 | ED.RN ---
1730: called report to ICU nurse Capri
[2023-07-31 18:07] LABS: Troponin-I HS 10 pg/mL (3.0-78.0)
--- NOTE | 2023-07-31 18:19 | VDLE_ITS ---
Reason For Study: Bilateral leg swelling RIGHT LEFT GSV is normal. CFV is compressible, spontaneous, phasic, CFV is compressible, spontaneous, phasic, competent, and demonstrates normal competent and demonstrates normal augmentation. augmentation. FV is compressible, spontaneous, phasic, FV is compressible, spontaneous, phasic, competent and demonstrates normal competent and demonstrates normal augmentation. augmentation. POP V is compressible, spontaneous, phasic, POP V is compressible, spontaneous, phasic, competent and demonstrates normal competent and demonstrates normal augmentation. augmentation. T/P Trunk is compressible. T/P Trunk is compressible. PTV is compressible. PTV is compressible. LT PerV is compressible. RT PerV is compressible. GSV previously harvested. Procedure This is a venous duplex using B-mode, color flow and spectral Doppler. Exam performed portable in ICU/CCU. A preliminary report was called and/or faxed to ICU. VL/Venous Duplex US - Gabe Extrem Interpretation Summary Deep veins of the bilateral lower extremities are patent and compressible segme ntally. There is no evidence of bilateral lower extremity deep vein thrombosis. The right great sap henous vein appears patent and compressible segmentally. Ordering Physician: Duran Lucio Referring Physician: Darnell Bryant MD Performed By: Fartun Smith RVT
[2023-07-31] MEDS: Vancomycin HCl 2,000 MG in 0.9% Normal Saline (500mL Bag) 500 ML 250 MG IV (18:28)
[2023-07-31] MEDS: Piperacil/Tazobactam 3.375 GM in 0.9% Normal Saline (50mL MB+) 50 ML IV (18:36)
[2023-07-31 18:49] LABS: BNP,B-Type NATRIURETIC PEPTIDE 237.8 pg/mL (0-100)
[2023-07-31 18:55] LABS: Prealbumin 9.3 mg/dL (20.0-40.0)
[2023-07-31 18:55] LABS: D-Dimer Quantitative (DVT/PE) 1.42 FEU/ug/m (0.27-0.49)
[2023-07-31 19:19] LABS: Lactic Acid 1.2 mmol/L (0.4-1.9)
--- NOTE | 2023-07-31 19:46 | PCM.RX.CS ---
Consult Antibiotic Management Pharmacy has been consulted to manage selected antibiotic: Vancomycin Type of Intervention Type of Consult: New start Suspected Infection Suspected Infection: Sepsis Labs Labs: Sodium 138 mmol/L (136-145) 07/31/23 13:56 Potassium 4.2 mmol/L (3.5-5.1) 07/31/23 13:56 Chloride 104 mmol/L (98-107) 07/31/23 13:56 Carbon Dioxide 31.0 mmol/L (21.0-32.0) 07/31/23 13:56 Anion Gap 3 (5-15) L 07/31/23 13:56 BUN 21 mg/dL (7-18) H 07/31/23 13:56 Creatinine 1.33 mg/dL (0.70-1.30) H 07/31/23 13:56 Est GFR (MDRD) Af Amer 67 mL/min (>60) 07/31/23 13:56 Est GFR (MDRD) Non-Af 56 mL/min (>60) L 07/31/23 13:56 BUN/Creatinine Ratio 15.8 RATIO (10-20) 07/31/23 13:56 Glucose 114 mg/dL (74-106) H 07/31/23 13:56 Microbiology Microbiology: Microbiology 07/31/23 15:43 Urine Catheter - Catheter Legionella Antigen - Final 07/31/23 15:43 Urine Catheter - Catheter Streptococcus pneumoniae Antigen (M - Final Goal Trough Goal Trough: 15-20 mcg/mL Pharmacy Plan for Drug Dosing Pharmacy Plan for Drug Dosing: NEW START IV VANCOMYCIN Consulting Physician: Dr. Marino Indication: Sepsis Goal Trough: 15-20 SrCr: 1.33 CrCl: 62 mL/min Comments: loading dose of 2g IV x1 ordered and administered 07/31/23 @1828 Vancomycin Dose: 1500mg IV Q12hr to start 08/01/23 @0600 Pending Level: 08/02/23 @0530, prior to 4th total dose of vancomycin per protocol Pharmacy Service will continue to monitor and adjust dosing as required.
[2023-07-31] MEDS: Albumin Human 25% (100 mL) 25 GM/100 ML BAG IV (21:04)
--- NOTE | 2023-07-31 21:26 | PCM.HOSP.N ---
Hospitalist Note SEPSIS SHOCK FOLLOW-UP: Despite IVF bolus 30 cc/kg in addition to additional 1L bolus, albumin and steroids per admitting physician, MAP < 65 goal. Will start NEP. Order already in place for PICC per admitting.
[2023-07-31] MEDS: Norepinephrine 8 MG in 0.9% Normal Saline (250mL Bag) 242 ML 9.4 MG CONT INF (21:39)
[2023-07-31] MEDS: MethylPREDNISolone 125 MG/2 ML Vial IV (21:51)
[2023-07-31] MEDS: Ondansetron 4 MG/2 ML Vial IV (23:10)
[2023-08-01] VITALS (36 sets, daily range): BP systolic 99–162; BP diastolic 42–114; PULSE 56–88; RESP 12–22; TEMP 36.4–36.7; O2SAT 89–98; BMI 42.7
[2023-08-01] MEDS: Piperacil/Tazobactam 3.375 GM in 0.9% Normal Saline (50mL MB+) 50 ML IV ×3 (05:16→21:25)
[2023-08-01] MEDS: Vancomycin HCl 1,500 MG in 0.9% Normal Saline (500mL Bag) 500 ML 250 MG IV ×2 (05:16→17:25)
[2023-08-01 05:29] LABS: Absolute Lymphocyte Count 0.61 X10^3/uL (0.83-4.51); Absolute Neutrophil Count 9.6 X10^3/uL (2.0-7.7); Basophil# 0.01 X10^3/uL; Basophil% 0.1 % (0-1); Hematocrit 41.5 % (40-54); Hemoglobin 12.3 g/dL (13.0-16.5); Lymphocyte # 0.61 X10^3/ul (0.83-4.51); Lymphocyte % 5.9 % (19-41); Mean Corp Hgb Conc 29.6 g/dL (32-36); Mean Corpuscular Hgb 26.2 pg (27.0-32.0); Mean Corpuscular Volume 88.3 fL (80-94); Mean Platelet Vol. 9.2 fl (6.2-12.0); Monocyte# 0.09 X10^3/uL; Monocyte% 0.9 % (0-10); NRBC Flagged by Analyzer 0 % (0-5); Neutrophil # 9.58 X10^3/uL (2.7-7.7); Neutrophil % 92.3 % (47-70); Platelet Count 259 K/mm3 (150-450); RBC Distribution Width SD 51.6 fl (35.1-43.9); White Blood Count 10.4 K/mm3 (4.4-11.0)
[2023-08-01 05:42] LABS: Anion Gap 0 (5-15); BUN 20 mg/dL (7-18); BUN/Creat Ratio 25.5 RATIO (10-20); Calcium,Total 8.3 mg/dL (8.5-10.1); Chloride 112 mmol/L (98-107); Creatinine, Serum 0.78 mg/dL (0.70-1.30); EST Glomerular Filtration Rate 102 mL/min (>60); Est Glom Filt Rate - Afr Amer 124 mL/min (>60); Estimated Creatinine Clearance 102.27 ml/min; Glucose 183 mg/dL (74-106); Potassium 4.8 mmol/L (3.5-5.1); Sodium Level 141 mmol/L (136-145)
--- NOTE | 2023-08-01 05:55 | RAD_ITS ---
EXAM: XR CHEST, 1 VIEW CLINICAL INDICATION: Suspected left lower lobe infiltrate. TECHNIQUE: Frontal view of the chest. COMPARISON: No relevant prior studies available. FINDINGS: LUNGS AND PLEURAL SPACES: Thickening of the right minor fissure potentially representing trapped or intrapleural fluid. Possible small right pleural effusion. Vascular congestion at the upper lungs. Low lung volumes with partial atelectasis at the lung bases. No pneumothorax. HEART: Unremarkable. Cardiac silhouette not enlarged. MEDIASTINUM: Central airways and mediastinal contour are unremarkable. BONES/JOINTS: Bones are unchanged. No acute fracture. SOFT TISSUES: Unremarkable. No other significant interval changes. IMPRESSION: 1. Partial atelectasis at the lung bases bilaterally. 2. Small right pleural effusion suspected. 3. No pneumothorax. EXAM: XR CHEST, 1 VIEW CLINICAL INDICATION: Suspected left lower lobe infiltrate. TECHNIQUE: Frontal view of the chest. COMPARISON: No relevant prior studies available. FINDINGS: LUNGS AND PLEURAL SPACES: Thickening of the right minor fissure potentially representing trapped or intrapleural fluid. Possible small right pleural effusion. Vascular congestion at the upper lungs. Low lung volumes with partial atelectasis at the lung bases. No pneumothorax. HEART: Redemonstration of CABG postsurgical changes. Cardiac silhouette not enlarged. MEDIASTINUM: Central airways and mediastinal contour are unremarkable. BONES/JOINTS: Bones are unchanged. No acute fracture. SOFT TISSUES: Unremarkable. OTHER FINDINGS: . No other significant interval changes. RAD/Chest 1 View (Portable) IMPRESSION: 1. Partial atelectasis at the lung bases bilaterally. 2. Small right pleural effusion suspected. 3. No pneumothorax. Electronically Signed: Pernell Ragsdale MD at 5:15 EDT ,
--- NOTE | 2023-08-01 07:59 | EX.PCM.CONCC ---
Assessment & Plan Assessment/Plan (1) Sepsis: QUALIFIERS: Sepsis acute organ dysfunction status: with acute organ dysfunction Sepsis type: sepsis due to unspecified organism Severe sepsis acute organ dysfunction type: encephalopathy Severe sepsis shock status: with septic shock Qualified Code(s): A41.9 - Sepsis, unspecified organism; R65.21 - Severe sepsis with septic shock; G93.41 - Metabolic encephalopathy PLAN: Plan RECOMMENDATIONS: 1. Supplemental oxygen to maintain saturations at or above 90%. 2. Continue empiric broad-spectrum antimicrobials. 3. Continue to wean Levophed to maintain mean arterial pressure at or above 65 mmHg. 4. Transition to prophylactic Lovenox dosing if Doppler negative for DVT. 5. Awaiting results of echocardiogram. IMPRESSIONS: 1. Septic shock Clinical concern for underlying cellulitis as precipitating etiology. Cultures are currently pending. The patient will be continued on broad-spectrum antimicrobials for now. Continue to wean Levophed to maintain a mean arterial pressure at or above 65 mmHg. 2. Acute kidney injury Most likely prerenal in etiology in the setting #1. Creatinine has improved with volume expansion. Continue to monitor urine output. No current indication for renal replacement therapy. 3. History of normal pressure hydrocephalus with [employer] shunt/hypertension/hyperlipidemia/coronary artery disease status post CABG Complicates care, management, recovery and prognosis. Continue to hold home antihypertensives. TIME: 32 minutes of critical care time, independent of procedures, was spent addressing the patient's septic shock, acute kidney injury,, review of all data and collaboration with the care team. HPI Consult Data Date of Consult: 08/01/23 HPI Narrative Reason for Consultation: Septic shock HPI Narrative: The patient is a 78-year-old male, with a history as outlined below, who presented to the emergency department on July 30 after being referred by his cardiology office secondary to presenting hypotension. The patient has a known history of coronary artery disease status post CABG in 2008, ischemic cardiomyopathy, hyperlipidemia and hypertension. According to documentation, the patient presented to a regular cardiology follow-up visit earlier that day and was noted to have systolic blood pressures in the 60s, for which he was referred to the emergency department. Only limited history could be obtained directly from the patient, as he was quite confused. On presentation to the emergency department, the patient was documented to be afebrile with a presenting blood pressure of 103/47 mmHg. He was saturating 91% on room air. Initial laboratory evaluation revealed a white blood cell count of 13,000. Creatinine was noted to be 1.3. Troponin was negative. BNP was mildly elevated at 237. Urine analysis was noncontributory. Chest imaging demonstrated potential atelectasis or infiltrate in the left lower lung field. Head CT revealed findings concerning for normal pressure hydrocephalus. A stable [employer] shunt was noted. Cultures were obtained. Fluids were administered. [facility] Medical History (Updated 07/31/23 @ 18:[address] Duran Lucio, DO) Atherosclerotic heart disease of burns pai[place] coronary artery without angina pectoris Edema Ischemic cardiomyopathy Old myocardial infarction Pure hypercholesterolemia Home Medications ropinirole 3 mg tablet 3 mg PO 4X/DAY PRN PER MD ORDER 08/10/15 [History Last Taken 02/07/18 05:45 3 MG] carbidopa 25 mg-levodopa 100 mg tablet 1 - 2 tab PO QHS TREMORS 10/10/16 [History Last Taken Unknown] ibuprofen 600 mg tablet 600 mg PO PRN PRN Pain 10/10/16 [History Last Taken Unknown] gabapentin 800 mg tablet 800 mg PO QHS PAIN 30 days ##60 06/19/17 [History Last Taken Unknown] cyclobenzaprine 10 mg tablet 10 mg PO BID PRN Bladder Spasm 07/14/19 [History Last Taken Unknown] nitroglycerin 0.4 mg sublingual tablet (Nitrostat) 0.4 mg sublingual Q5M PRN chest pain #25 tabs 07/27/20 [Rx Last Taken Unknown] furosemide 40 mg tablet 40 mg PO .COMPLEX edema 04/19/21 [History Last Taken Unknown] aspirin 81 mg tablet,delayed release (Adult Aspirin Regimen) 81 mg PO QDAY #90 tabs 01/25/23 [Rx Last Taken Unknown] oxybutynin chloride 5 mg tablet 5 mg PO DAILY 01/25/23 [History Last Taken Unknown] atorvastatin 80 mg tablet See Rx Instructions .Route .COMPLEX #90 tabs 03/22/23 [Rx Last Taken Unknown] isosorbide mononitrate 20 mg tablet See Rx Instructions .Route .COMPLEX #90 tabs 03/22/23 [Rx Last Taken Unknown] losartan 50 mg tablet See Rx Instructions .Route .COMPLEX #90 tabs 05/23/23 [Rx Last Taken Unknown] carvedilol 12.5 mg tablet 25 mg PO BID 07/31/23 [History Last Taken Unknown] pramipexole 1.5 mg tablet,extended release 24 hr (Mirapex ER) 1.5 mg PO QHS RESTLESS LEGS 07/31/23 [History Last Taken Unknown] tramadol 50 mg tablet 50 mg PO TID PRN 07/31/23 [History Last Taken Unknown] trospium 20 mg tablet 20 mg PO BID BLADDER 07/31/23 [History Last Taken Unknown] Allergy/AdvReac Type Severity Reaction Status Date / Time lisinopril AdvReac Other Verified 07/31/23 13:03 Family History Father Colon cancer Mother CVA (cerebral vascular accident) Hypertension Surgical History (Updated 07/31/23 @ 18:[address] Duran Lucio DO) Aortocoronary bypass status (~11/30/08) History of right hip replacement History of shoulder surgery Ventriculo-peritoneal shunt status Social History Smoking Status: Never smoker alcohol intake: never substance use type: does not use caffeine: Yes (1-3 servings per day) Type: coffee what type of physical activity do you participate in: none seatbelt use: always do you feel safe at home: Yes ROS Review of Systems ROS Unobtainable: due to mental status Physical Exam Const alert and no apparent distress Constitutional Narrative: Confused. Morbidly obese. General Appearance: cooperative HEENT normocephalic and head/scalp atraumatic Eyes PERRL, EOMs intact bilaterally and conjunctivae normal Neck supple General: trachea midline Chest inspection of chest normal Resp normal respiratory effort Auscultation: diminished lung sounds Cardio regular rate and regular rhythm GI normal to inspection, nondistended, normoactive bowel sounds Extremity General Extremity: edema bilateral lower extremity Skin General Skin Exam: erythema, venous stasis and dermatitis Neuro moves all extremities and no focal motor deficits Psych Mood & Affect: flat affect Lab / Micro Data 08/01/23 05:15 08/01/23 05:15 Labs: Laboratory Results - last 24 hr 07/31/23 13:56: WBC 13.2 H, RBC 4.88, Hgb 12.9 L, Hct 41.9, MCV 85.9, MCH 26.4 L, MCHC 30.8 L, RDW Std Deviation 50.7 H, RDW Coeff of Pema 16.1 H, Plt Count 310, MPV 10.1, Immature Gran % (Auto) 0.700, Neut % (Auto) 72.0 H, Lymph % (Auto) 14.3 L, [place] % (Auto) 11.8 H, Eos % (Auto) 0.7, Baso % (Auto) 0.5, Absolute Neuts (auto) 9.5 H, Absolute Lymphs (auto) 1.89, Nucleated RBC % 0, Differential Comment SCANNED, Diff Path Review July, PT 14.7, INR 1.2, APTT 34.4, Sodium 138, Potassium 4.2, Chloride 104, Carbon Dioxide 31.0, Anion Gap 3 L, BUN 21 H, Creatinine 1.33 H, Estim Creat Clear Calc 62.26, Est GFR (MDRD) Af Amer 67, Est GFR (MDRD) Non-Af 56 L, BUN/Creatinine Ratio 15.8, Glucose 114 H, Lactic Acid 1.9, Calcium 8.6, Total Bilirubin 0.80, AST 22, ALT 18, Alkaline Phosphatase 124 H, Troponin I High Sens 15, B-Natriuretic Peptide 237.8 H, Total Protein 6.7, Albumin 2.8 L, Globulin 3.9, Albumin/Globulin Ratio 0.7 L 07/31/23 15:43: Urine Color Yellow, Urine Clarity Clear, Urine pH 5.0, Ur Specific [place] 1.020, Urine Protein 15 H, Urine Glucose (UA) Normal, Urine Ketones 5 H, Urine Occult Blood 10 H, Urine Nitrite Negative, Urine Bilirubin 1 H, Urine Urobilinogen 1 H, Ur Leukocyte Esterase 25 H, Urine RBC 0 SEEN, Urine WBC 0-5 SEEN, Ur Squamous Epith Cells 0 SEEN, Urine Bacteria 0 SEEN, Hyaline Casts 0-5 SEEN, Urine Mucus 2+ 07/31/23 17:35: Troponin I High Sens 10, Prealbumin 9.3 L 07/31/23 18:00: Lactic Acid Cancelled 07/31/23 18:34: D-Dimer Quant (PE/DVT) 1.42 H* 07/31/23 18:50: Lactic Acid 1.2 08/01/23 05:15: WBC 10.4, RBC 4.70, Hgb 12.3 L, Hct 41.5, MCV 88.3, MCH 26.2 L, MCHC 29.6 L, RDW Std Deviation 51.6 H, RDW Coeff of Pema 16.0 H, Plt Count 259, MPV 9.2, Immature Gran % (Auto) 0.800, Neut % (Auto) 92.3 H, Lymph % (Auto) 5.9 L, [place] % (Auto) 0.9, Eos % (Auto) 0.0, Baso % (Auto) 0.1, Absolute Neuts (auto) 9.6 H, Absolute Lymphs (auto) 0.61 L, Nucleated RBC % 0, Sodium 141, Potassium 4.8, Chloride 112 H, Carbon Dioxide 29.0, Anion Gap 0 L, BUN 20 H, Creatinine 0.78, Estim Creat Clear Calc 102.27, Est GFR (MDRD) Af Amer 124, Est GFR (MDRD) Non-Af 102, BUN/Creatinine Ratio 25.5 H, Glucose 183 H, Calcium 8.3 L Micro: Microbiology 07/31/23 15:43 Urine Catheter - Catheter Legionella Antigen - Final 07/31/23 15:43 Urine Catheter - Catheter Streptococcus pneumoniae Antigen (M - Final Imaging Radiology Impression Chest X-Ray 07/31/23 14:19 IMPRESSION: Limited inspiration with findings suggestive of atelectasis and/or infiltrate at the left lung base with blunting of the left costo phrenic angle. Electronically Signed: Arie Silva MD at 15:20 EDT , Brain CT 07/31/23 14:25 IMPRESSION: Findings in keeping with normal pressure hydrocephalus. A ventriculoperitoneal shunt tube is seen with the tip in the anterior aspect of the left lateral ventricle. There has been no change since prior study. Electronically Signed: Arie Silva MD at 15:31 EDT , Chest X-Ray 08/01/23 05:55 IMPRESSION: 1. Partial atelectasis at the lung bases bilaterally. 2. Small right pleural effusion suspected. 3. No pneumothorax. Electronically Signed: Pernell Ragsdale MD at 5:15 EDT , Charges/Coding Procedures Hospitalists Procedures: [id number] Critical Care 1st Hr
[2023-08-01] MEDS: Aspirin E.C. 81 MG Tablet PO (08:10)
[2023-08-01] MEDS: Oxybutynin 5 MG Tablet PO (08:10)
[2023-08-01] MEDS: Lactobacillis Acidophilus 2 CAP PO ×2 (08:10→20:09)
[2023-08-01] MEDS: Enoxaparin 150 MG/ML Syringe 130 MG SC ×2 (08:10→20:09)
[2023-08-01] MEDS: Zinc Sulfate 50 mg zinc (220 mg) ORAL capsule PO (08:11)
[2023-08-01] MEDS: Ascorbic Acid 500 MG Tablet 1000 MG PO ×2 (08:11→17:25)
--- NOTE | 2023-08-01 10:23 | PCM.PROGNOTE ---
Subjective Subjective Patient seen and examined. His was by his bedside. He said he felt much better relative to yesterday but he still felt weak. He denied any fever, chills, palpitations, dizziness, nausea or vomiting. says the redness in his lower extremities has improved. Patient's blood pressure improved so his Levophed had just been turned off at the time of my review. Review of systems otherwise negative. Objective Data Objective Data Vital Signs: Vital Signs Temp Pulse Resp BP Pulse Ox O2 Del Method O2 Flow Rate 97.5 F L 61 16 128/68 H 98 Nasal Cannula 2 08/01/23 00:00 08/01/23 08:00 08/01/23 08:00 08/01/23 08:00 08/01/23 08:00 08/01/23 08:00 08/01/23 08:00 Oxygen Flow Rate (L/min) 2 Oxygen Delivery Method Nasal Cannula Weight: 281 lb 1.43 oz Body Mass Index (BMI) 42.7 Intake & Output: Intake and Output for Last 24 Hours 07/30/23 07/31/23 08/01/23 23:59 23:59 23:59 Intake Total 5824.09 / 5828.79 718.65 / 718.65 Output Total 500 / 500 Balance 5824.09 / 5828.79 218.65 / 218.65 Lab / Micro Data 08/01/23 05:15 08/01/23 05:15 Labs: Laboratory Results - last 24 hr 07/31/23 13:56: WBC 13.2 H, RBC 4.88, Hgb 12.9 L, Hct 41.9, MCV 85.9, MCH 26.4 L, MCHC 30.8 L, RDW Std Deviation 50.7 H, RDW Coeff of Pema 16.1 H, Plt Count 310, MPV 10.1, Immature Gran % (Auto) 0.700, Neut % (Auto) 72.0 H, Lymph % (Auto) 14.3 L, [place] % (Auto) 11.8 H, Eos % (Auto) 0.7, Baso % (Auto) 0.5, Absolute Neuts (auto) 9.5 H, Absolute Lymphs (auto) 1.89, Nucleated RBC % 0, Differential Comment SCANNED, Diff Path Review July, PT 14.7, INR 1.2, APTT 34.4, Sodium 138, Potassium 4.2, Chloride 104, Carbon Dioxide 31.0, Anion Gap 3 L, BUN 21 H, Creatinine 1.33 H, Estim Creat Clear Calc 62.26, Est GFR (MDRD) Af Amer 67, Est GFR (MDRD) Non-Af 56 L, BUN/Creatinine Ratio 15.8, Glucose 114 H, Lactic Acid 1.9, Calcium 8.6, Total Bilirubin 0.80, AST 22, ALT 18, Alkaline Phosphatase 124 H, Troponin I High Sens 15, B-Natriuretic Peptide 237.8 H, Total Protein 6.7, Albumin 2.8 L, Globulin 3.9, Albumin/Globulin Ratio 0.7 L 07/31/23 15:43: Urine Color Yellow, Urine Clarity Clear, Urine pH 5.0, Ur Specific [place] 1.020, Urine Protein 15 H, Urine Glucose (UA) Normal, Urine Ketones 5 H, Urine Occult Blood 10 H, Urine Nitrite Negative, Urine Bilirubin 1 H, Urine Urobilinogen 1 H, Ur Leukocyte Esterase 25 H, Urine RBC 0 SEEN, Urine WBC 0-5 SEEN, Ur Squamous Epith Cells 0 SEEN, Urine Bacteria 0 SEEN, Hyaline Casts 0-5 SEEN, Urine Mucus 2+ 07/31/23 17:35: Troponin I High Sens 10, Prealbumin 9.3 L 07/31/23 18:00: Lactic Acid Cancelled 07/31/23 18:34: D-Dimer Quant (PE/DVT) 1.42 H* 07/31/23 18:50: Lactic Acid 1.2 08/01/23 05:15: WBC 10.4, RBC 4.70, Hgb 12.3 L, Hct 41.5, MCV 88.3, MCH 26.2 L, MCHC 29.6 L, RDW Std Deviation 51.6 H, RDW Coeff of Pema 16.0 H, Plt Count 259, MPV 9.2, Immature Gran % (Auto) 0.800, Neut % (Auto) 92.3 H, Lymph % (Auto) 5.9 L, [place] % (Auto) 0.9, Eos % (Auto) 0.0, Baso % (Auto) 0.1, Absolute Neuts (auto) 9.6 H, Absolute Lymphs (auto) 0.61 L, Nucleated RBC % 0, Sodium 141, Potassium 4.8, Chloride 112 H, Carbon Dioxide 29.0, Anion Gap 0 L, BUN 20 H, Creatinine 0.78, Estim Creat Clear Calc 102.27, Est GFR (MDRD) Af Amer 124, Est GFR (MDRD) Non-Af 102, BUN/Creatinine Ratio 25.5 H, Glucose 183 H, Calcium 8.3 L Micro: Microbiology 07/31/23 15:43 Urine Catheter - Catheter Legionella Antigen - Final 07/31/23 15:43 Urine Catheter - Catheter Streptococcus pneumoniae Antigen (M - Final Radiography Diagnostic Testing: Radiology Impression Chest X-Ray 07/31/23 14:19 IMPRESSION: Limited inspiration with findings suggestive of atelectasis and/or infiltrate at the left lung base with blunting of the left costo phrenic angle. Electronically Signed: Arie Silva MD at 15:20 EDT , Brain CT 07/31/23 14:25 IMPRESSION: Findings in keeping with normal pressure hydrocephalus. A ventriculoperitoneal shunt tube is seen with the tip in the anterior aspect of the left lateral ventricle. There has been no change since prior study. Electronically Signed: Arie Silva MD at 15:31 EDT , Chest X-Ray 08/01/23 05:55 IMPRESSION: 1. Partial atelectasis at the lung bases bilaterally. 2. Small right pleural effusion suspected. 3. No pneumothorax. Electronically Signed: Pernell Ragsdale MD at 5:15 EDT , Physical Exam Const alert, oriented x3 and no apparent distress General Appearance: cooperative HEENT normocephalic, head/scalp atraumatic and moist oral mucous membranes Eyes PERRL and EOMs intact bilaterally Neck no lymphadenopathy and supple Lymph Lymphatic: no lymphadenopathy noted and no lymphedema noted Resp Resp Narrative: mildly diminished breath sounds bilaterally, no wheezes or crackles. on 2L of oxygen by nasal canula Cardio regular rate, regular rhythm, S1 normal heart sound, S2 normal heart sound and no murmurs GI normal to inspection, nondistended, normoactive bowel sounds, soft to palpation, non-tender and non-distended Extremity no calf tenderness Skin Skin Narrative: diffuse erythema of both lower extremities, from ankle to mid dexter, worse in the RLE. Neuro CN's II-XII intact bilaterally, no focal motor deficits and no sensory deficits noted Motor Exam: strength 5/5 throughout and general weakness Psych thought process normal and cooperative Appearance: appropriate Assessment & Plan Assessment/Plan (1) Cellulitis of right lower extremity: (2) Sepsis: QUALIFIERS: Sepsis acute organ dysfunction status: with acute organ dysfunction Sepsis type: sepsis due to unspecified organism Severe sepsis acute organ dysfunction type: encephalopathy Severe sepsis shock status: with septic shock Qualified Code(s): A41.9 - Sepsis, unspecified organism; R65.21 - Severe sepsis with septic shock; G93.41 - Metabolic encephalopathy (3) Metabolic encephalopathy: PLAN: Plan #Septic shock due to RLE cellulitis A rapid response was called as 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 Rapid response had been called because patient became lethargic and very weak. Was on Levophed due to shock not responding to fluids. Levophed was discontinued this morning. On IV vancomycin and Zosyn. Critical care on board. Blood and wound cultures pending. #Probable early pneumonia: Chest x-ray showed left lower lobe infiltrate. On broad-spectrum antibiotics. Urine for strep and Legionella negative. #Hypoxia Likely due to sepsis and probable pneumonia. Currently on 2 L of oxygen. Titrate oxygen to maintain saturation above 90%. Breathing treatments with bronchodilators. #Elevated D-dimer: D-dimer was 1.42. unclear why it was checked CT of the chest not done. Unclear why. Duplex of the lower extremities ordered and patient currently on therapeutic Lovenox. discussed with critical care attending; low suspicion for PE; Duplex pending; if duplex negative, per ICU attending, will switch to DVT prophylaxis dose for lovenox #Chronic dementia and Normal pressure hydrocephalus S/p SOLE FILLER shunt. #Benign essential hypertension: BP meds on hold due to hypotension. #Hyperlipidemia: On statin #CAD s/p CABD echo showed EF of 60% with stage 2 diastolic dysfunction and no regional wall motion abnormalities, moderately elevated pulmonary pressure of 62mmHg. On aspirin and statin #History of esophagitis, s/p right hip replacement #Morbid obesity: BMI is 42.7. Complicates acute care, expected recovery and prognosis. DVT prophylaxis: on therapeutic lovenox Charges/Coding Visit Charges Inpatient E&M: 10715 Subs Hosp L3
--- NOTE | 2023-08-01 13:14 | PRO.PCM_ITS ---
Procedure Report Date of Procedure: 08/01/23 Assessment & Plan Assessment/Plan (1) Acute hypotension: Procedures Radiology Radiology Access Procedures: PICC Procedure Time Out Time Out Informed consent given: Yes Consent signed: Yes Time out checklist: patient, procedure, site marked/identified, positioning of patient, supplies available and allergies confirmed Time out verified: Yes Time out date: 08/01/23 Time out time: 10:02 PICC Line Consent Screening tool completed:: Yes Consent obtained:: Yes Consent given by (patient or responsible green party):: patient Line successful (if no, document why in comments):: Yes Insertion Reason for Insertion: vesicant Date of Insertion: 08/01/23 Ok to use: Yes Type of PICC inserted: Dual Power PICC PICC Lot #: [id number] PICC Reference #: [id number] Microintroducer Used: Yes (in kit) Ultrasound/Equipment Used: Probe Cover Kit Trimmed Length (cm): 46 Insertion Length (cm): 45 Exposed Length (cm): 1 Tip Placement: Caval Atrial Junction Placement Confirmation: 3CG Insertion Vein: Right Brachial Insertion Attempts: 1 Local Anesthesia Used: Lidocaine 1% (in kit) Dressing Applied: Statlock and Tegaderm CHG Arm Measurement above site (in cm): 33 Patient Tolerated Procedure: Well Threading Difficulties: No Comments Comment: Patient identity was verified with two patient identifiers. Informed consent was obtained and time-out was completed. Hands were sanitized. The patient was positioned supine with right arm at 90 degrees. The patient's upper arm vasculature was assessed using ultrasound. Patency of the right brachial vein was confirmed and the vein was externally marked. An external measurement was obtained of 46 cm. External leads were applied to the patient's right upper chest and laterally and inferior of the umbilicus on the mid axillary line. Cap, mask, and prep gloves were donned. The underdrape was placed under the patient's arm. The site was prepped with chlorhexidine, and tourniquet was loosely applied. Prep gloves were discarded, and hands were sanitized. The sterile kit was opened with additional supplies dropped in. Sterile gown and gloves were donned, and the patient was draped. The sterile kit was assembled with needle, introducer, needless connectors, and each catheter lumen flushed with sterile normal saline. The marked site of insertion was anesthetized with 1% lidocaine from the kit. Patient tolerated well. The right brachial vein was then accessed using ultrasound guidance and guidewire was inserted to safety candice. The tourniquet was released. The access needle was removed while securing the guidewire in place. The site was again anesthetized with 1% lidocaine, prior to insertion of introducer sheath and dilator. Patient tolerated the insertion well. The catheter was trimmed to a length of 46 cm. Using 3C guidance, the catheter was then inserted through the introducer sheath, slowly. There was no resistance on insertion. The catheter followed the expected course of the vessel using 3CG tracking. The introducer sheath was retracted and peeled away, incrementally, while keeping the catheter secured. Maximal p-wave, without deflection, confirming placement in the cavoatrial junction, was obtained at an insertion length of 45 cm, leaving 1 cm external. The stylet was removed. A flushed needleless connector was attached to the lumen. Aspiration of the lumen was performed to remove any air and confirm blood return. Blood return was verified and each lumen was flushed with 10 ml of sterile normal saline in a pulsatile fashion. The each lumen was clamped with the last pulsed flush. Total sterile flushes used for the insertion was 5 10 ml syringes, 2 from the kit. Finally, the insertion site was cleaned with chlorhexidine, and the catheter was secured using a StatLock. The site was covered with a Tegaderm CHG Dressing and disinfecting caps were applied. Baseline arm circumference was obtained at the insertion site and measured 33 cm. The patient was provided with a patient education handout on PICC line care of infection prevention, heavy lifting restriction, maintaining mobility, and watching for any signs of infection. The primary nurse is aware that the PICC line is ready for use.
[2023-08-01 13:26] LABS: Pathologist Review Reviewed
--- NOTE | 2023-08-01 14:44 | CASEMGMT ---
RN CM Assessment Face to Face with patient for initial transition planning/care coordination assessment. Pt is currently disoriented (A&Ox1-2) and is unable to answer this RN CM questions accordingly. Pt at bedside and agreeable to answering this RN CM questions for initial assessment. Care providers, pharmacy, and demographics verified. Admitting dx: Sepsis with BL LE Cellulitis LACE Strata: 2 PCP: Darnell Bryant Specialists: Lennox (Uro), Blossom (Cardio), Reilly (Neuro) Preferred Pharmacy: [facility] During this stay Insurance: [place] [facility] Prescription Benefit: Yes LNOK: Mary Martins (W), Soren Martins (son) Living Arrangements: Pt lives with his in a single story home with a BM with HR and a ramp to enter ADLs/IADLs: Dependent. Pt helps but states that she is unable to care for his needs currently Transportation: , friends, family DME: Dotty lift, BSC, W/C, Electric W/C, Electric Scooter, Walker, Cane, walk-in shower with GB and seat, raised toilet seat with GB, BP Cuff, and Pulse Ox. Pt states that the pt does not wear any additional oxygen at home or PAP machines. Pt is currently on 2L of O2. HHC/SNF: History at the [facility]. History with [facility] Pt?s goal: Obtain further rehab and return to [facility]. Plan: Pt and pt are agreeable to the pt getting further rehab once DC from [facility]. Anticipate SNF. PT evals are still pending. SW updated and aware and to follow this pt for safe DC from [facility]. Cam Chowdhury RN, CM
--- NOTE | 2023-08-01 14:58 | CASEMGMT ---
Addendum entered by Madeline Jaeger 08/01/23 15:38: Correction to note. List was provided to patient and his . Madeline Jaeger, Discharge Planning Asst. Original Note: Discharge Planning A list of?SNF providers including quality and resource use data and consistent with the patient's preferred geographic region, medical needs, and insurance network was created in [employer] Guide.? This list was provided to the . Madeline Jaeger, Discharge Planning Asst.
--- NOTE | 2023-08-01 15:28 | CASEMGMT ---
SW was informed by RN CHERYL that patient and would like patient to go to a assisted facility at discharge. BRAYAN asked Madeline garnica/anupama estate planning paralegal to print a SNF list and deliver to patient and his . Cristina JEAN
[2023-08-01] MEDS: Carbidopa/Levodopa 25/100 Tablet PO (17:24)
[2023-08-01] MEDS: Gabapentin 800 MG Tablet PO (20:08)
[2023-08-01] MEDS: Atorvastatin Calcium 80 MG Tablet PO (20:09)
[2023-08-02] VITALS (13 sets, daily range): BP systolic 114–135; BP diastolic 54–87; PULSE 69–78; RESP 16–20; TEMP 36.5–36.9; O2SAT 83–99; BMI 43.1
--- NOTE | 2023-08-02 00:22 | NURSING ---
Patient's Peripheral IV and PICC line started to leak a small amount. The PICC dressing was 10% saturated but leaking out the medial side of the dressing. The dressing was changed. Will continue to monitor dressing and lab values.
[2023-08-02 04:07] LABS: Absolute Neutrophil Count 12.7 X10^3/uL (2.0-7.7); Basophil# 0.04 X10^3/uL; Basophil% 0.2 % (0-1); Eosinophil# 0.01 X10^3/uL; Eosinophils% 0.1 % (0-5); Hematocrit 38.7 % (40-54); Hemoglobin 11.8 g/dL (13.0-16.5); Lymphocyte % 12.2 % (19-41); Mean Corp Hgb Conc 30.5 g/dL (32-36); Mean Corpuscular Hgb 26.6 pg (27.0-32.0); Mean Corpuscular Volume 87.4 fL (80-94); Mean Platelet Vol. 9.2 fl (6.2-12.0); Monocyte% 9.2 % (0-10); NRBC Flagged by Analyzer 0 % (0-5); Neutrophil # 12.72 X10^3/uL (2.7-7.7); Neutrophil % 77.9 % (47-70); Platelet Count 257 K/mm3 (150-450); RBC Distribution Width CV 15.7 % (11.6-14.6); RBC Distribution Width SD 51.1 fl (35.1-43.9); Red Blood Count 4.43 M/mm3 (4.6-6.2); White Blood Count 16.3 K/mm3 (4.4-11.0)
[2023-08-02 04:26] LABS: ALB/GLOB Ratio 0.8 RATIO (0.9-2.4); AST(SGOT) 35 U/L (15-37); Alanine Aminotransfer ALT/SGPT 22 U/L (16-61); Albumin, Serum 2.7 g/dL (3.2-5.0); Alkaline Phosphatase 128 U/L (45-117); Anion Gap 2 (5-15); BUN 16 mg/dL (7-18); BUN/Creat Ratio 20.6 RATIO (10-20); Calcium,Total 8.4 mg/dL (8.5-10.1); Chloride 111 mmol/L (98-107); Creatinine, Serum 0.78 mg/dL (0.70-1.30); EST Glomerular Filtration Rate 103 mL/min (>60); Est Glom Filt Rate - Afr Amer 125 mL/min (>60); Estimated Creatinine Clearance 102.76 ml/min; Globulin 3.4 g/dL (2.2-4.2); Glucose 117 mg/dL (74-106); Potassium 4.1 mmol/L (3.5-5.1); Protein, Total 6.1 g/dL (6.4-8.2); Sodium Level 143 mmol/L (136-145); Vancomycin, Trough Level 14.2 ug/mL (5.0-15.0)
--- NOTE | 2023-08-02 04:35 | PCM.RX.CS ---
Consult Antibiotic Management Pharmacy has been consulted to manage selected antibiotic: Vancomycin Type of Intervention Type of Consult: Follow-up Labs Labs: Sodium 143 mmol/L (136-145) 08/02/23 03:52 Potassium 4.1 mmol/L (3.5-5.1) 08/02/23 03:52 Chloride 111 mmol/L (98-107) H 08/02/23 03:52 Carbon Dioxide 30.0 mmol/L (21.0-32.0) 08/02/23 03:52 Anion Gap 2 (5-15) L 08/02/23 03:52 BUN 16 mg/dL (7-18) 08/02/23 03:52 Creatinine 0.78 mg/dL (0.70-1.30) 08/02/23 03:52 Est GFR (MDRD) Af Amer 125 mL/min (>60) 08/02/23 03:52 Est GFR (MDRD) Non-Af 103 mL/min (>60) 08/02/23 03:52 BUN/Creatinine Ratio 20.6 RATIO (10-20) H 08/02/23 03:52 Glucose 117 mg/dL (74-106) H 08/02/23 03:52 Vancomycin Trough 14.2 ug/mL (5.0-15.0) 08/02/23 03:52 Microbiology Microbiology: Microbiology 07/31/23 15:43 Urine Catheter - Catheter Legionella Antigen - Final 07/31/23 15:43 Urine Catheter - Catheter Streptococcus pneumoniae Antigen (M - Final Pharmacy Plan for Drug Dosing Pharmacy Plan for Drug Dosing: Pharmacy Service will continue to monitor and adjust dosing as required. TROUGH 14.2 @ 10.5 HOURS. INCREASE TO 1750 Q12H AND FOLLOW UP TROUGH PRIOR TO 4TH DOSE Follow-Up Labs Follow-Up Labs: Trough: Vancomycin Date/Time Labs Ordered Labs to be done on [date and time ordered]: 08/02 @ 1630
[2023-08-02] MEDS: Vancomycin HCl 1,750 MG in 0.9% Normal Saline (500mL Bag) 500 ML 250 MG IV ×2 (05:02→18:00)
[2023-08-02] MEDS: Carbidopa/Levodopa 25/100 Tablet PO ×3 (05:31→15:39)
[2023-08-02] MEDS: Piperacil/Tazobactam 3.375 GM in 0.9% Normal Saline (50mL MB+) 50 ML IV ×3 (05:32→21:01)
--- NOTE | 2023-08-02 07:08 | PN.CC_ITS ---
Assessment & Plan Assessment/Plan (1) Sepsis: QUALIFIERS: Sepsis type: sepsis due to unspecified organism Sepsis acute organ dysfunction status: with acute organ dysfunction Severe sepsis acute organ dysfunction type: encephalopathy Severe sepsis shock status: with septic shock Qualified Code(s): A41.9 - Sepsis, unspecified organism; R65.21 - Severe sepsis with septic shock; G93.41 - Metabolic encephalopathy PLAN: Plan RECOMMENDATIONS: 1. Supplemental oxygen to maintain saturations at or above 90%. 2. Continue empiric broad-spectrum antimicrobials. 3. Encourage incentive spirometer use and mobilize patient as tolerated. 4. The patient is medically stable for transfer out of the intensive care unit. 5. Will sign off from a critical care perspective. Please call with any additional questions. IMPRESSIONS: 1. Septic shock Clinical concern for underlying cellulitis as precipitating etiology. Cultures are currently pending. The patient will be continued on broad-spectrum antimicrobials for now. With supportive care, the patient's hemodynamic status has improved. The patient has been successfully weaned from vasopressor support and remains hemodynamically stable. 2. Acute kidney injury Most likely prerenal in etiology in the setting #1. Creatinine has improved with volume expansion. Continue to monitor urine output. No current indication for renal replacement therapy. 3. History of normal pressure hydrocephalus with FINANCIAL FOUNDATIONS ASSOCIATE shunt/hypertension/hyperlipidemia/coronary artery disease status post CABG Complicates care, management, recovery and prognosis. Continue to hold home antihypertensives. This note was generated with [employer] dictation software. It may contain incorrect words, spelling, and punctuation that were not noted in checking the note before signing. Subjective Subjective The patient was seen and examined at the bedside this morning. Events from the last 24 hours have been reviewed. The patient is currently afebrile, hemodynamically stable and maintaining appropriate oxygen saturations on 2 L/min via nasal cannula. The patient has been weaned successfully off of Levophed. The patient is currently documented to be overall net +5 L for the hospitalization. White count is elevated at 16,000. Objective Data Objective Data The patient's most recent lab work, culture data and imaging studies have all been personally reviewed. Vital Signs: Vital Signs Temp Pulse Resp BP Pulse Ox O2 Del Method O2 Flow Rate 97.8 F 72 18 131/62 H 90 Nasal Cannula 2 08/02/23 06:54 08/02/23 06:54 08/02/23 06:54 08/02/23 06:54 08/02/23 06:54 08/02/23 06:54 08/02/23 06:54 Oxygen Flow Rate (L/min) 2 Oxygen Delivery Method Nasal Cannula Weight: 283 lb 8.231 oz Body Mass Index (BMI) 43.1 Intake & Output: Intake and Output for Last 24 Hours 07/31/23 08/01/23 08/02/23 23:59 23:59 23:59 Intake Total 5824.09 / 5828.79 1508.05 / 1508.05 50 / 50 Output Total 1750 / 1750 600 / 600 Balance 5824.09 / 5828.79 -241.95 / -241.95 -550 / -550 Lab / Micro Data Attestation: I reviewed the patient's lab results. 08/02/23 03:52 08/02/23 03:52 Labs: Laboratory Results - last 24 hr 07/31/23 13:56: Diff Path Review Reviewed 08/02/23 03:52: WBC 16.3 H, RBC 4.43 L, Hgb 11.8 L, Hct 38.7 L, MCV 87.4, MCH 26.6 L, MCHC 30.5 L, RDW Std Deviation 51.1 H, RDW Coeff of Pema 15.7 H, Plt Count 257, MPV 9.2, Immature Gran % (Auto) 0.400, Neut % (Auto) 77.9 H, Lymph % (Auto) 12.2 L, [place] % (Auto) 9.2, Eos % (Auto) 0.1, Baso % (Auto) 0.2, Absolute Neuts (auto) 12.7 H, Absolute Lymphs (auto) 2.00, Nucleated RBC % 0, Sodium 143, Potassium 4.1, Chloride 111 H, Carbon Dioxide 30.0, Anion Gap 2 L, BUN 16, Creatinine 0.78, Estim Creat Clear Calc 102.76, Est GFR (MDRD) Af Amer 125, Est GFR (MDRD) Non-Af 103, BUN/Creatinine Ratio 20.6 H, Glucose 117 H, Calcium 8.4 L , Total Bilirubin 0.50, AST 35, ALT 22, Alkaline Phosphatase 128 H, Total Protein 6.1 L, Albumin 2.7 L, Globulin 3.4, Albumin/Globulin Ratio 0.8 L, Vancomycin Trough 14.2 Micro: Microbiology 07/31/23 15:43 Urine Catheter - Catheter Legionella Antigen - Final 07/31/23 15:43 Urine Catheter - Catheter Streptococcus pneumoniae Antigen (M - Final Radiography Diagnostic Testing: Radiology Impression Echocardiogram 07/31/23 16:46 Interpretation Summary Normal LV size. Left ventricular systolic function is normal. The estimated ejection fraction is 60 %. The left atrium is moderately enlarged. Stage 2 diastolic dysfunction. Pulmonary artery systolic pressure is 62 mmHg. Moderate pulmonary hypertension. Ordering Physician: Duran Lucio Performed By: Chandra Higgins RCS Venous Doppler Study 07/31/23 18:19 Interpretation Summary Deep veins of the bilateral lower extremities are patent and compressible segmentally. There is no evidence of bilateral lower extremity deep vein thrombosis. The right great saphenous vein appears patent and compressible segmentally. Ordering Physician: Duran Lucio Referring Physician: Darnell Bryant MD Performed By: Fartun Smith T Chest X-Ray 08/01/23 05:55 IMPRESSION: 1. Partial atelectasis at the lung bases bilaterally. 2. Small right pleural effusion suspected. 3. No pneumothorax. Electronically Signed: Pernell Ragsdale MD at 5:15 EDT , Physical Exam Const alert and no apparent distress Constitutional Narrative: Morbidly obese. General Appearance: cooperative HEENT normocephalic and head/scalp atraumatic Eyes PERRL, EOMs intact bilaterally and conjunctivae normal Neck supple General: trachea midline Chest inspection of chest normal Resp normal respiratory effort Auscultation: diminished lung sounds Cardio regular rate and regular rhythm GI normal to inspection, nondistended, normoactive bowel sounds Extremity General Extremity: edema bilateral lower extremity Skin General Skin Exam: erythema, venous stasis and dermatitis Neuro moves all extremities and no focal motor deficits Psych Mood & Affect: flat affect Charges/Coding Visit Charges Inpatient E&M: 87882 Subs Hosp L3
[2023-08-02] MEDS: Aspirin E.C. 81 MG Tablet PO (09:00)
[2023-08-02] MEDS: Ascorbic Acid 500 MG Tablet 1000 MG PO ×2 (09:00→18:00)
[2023-08-02] MEDS: Zinc Sulfate 50 mg zinc (220 mg) ORAL capsule PO (10:00)
[2023-08-02] MEDS: Enoxaparin 150 MG/ML Syringe 130 MG SC ×2 (10:00→21:12)
[2023-08-02] MEDS: Lactobacillis Acidophilus 2 CAP PO ×2 (10:00→21:12)
[2023-08-02] MEDS: Oxybutynin 5 MG Tablet PO (10:00)
[2023-08-02] MEDS: 0.9% Saline Lock 10 ML Syringe IV (10:01)
--- NOTE | 2023-08-02 10:54 | CASEMGMT ---
Addendum entered by Madeline Jaeger 08/02/23 15:07: [facility] declined referral. SW updated. Madeline Jaeger, Discharge Planning Asst. Original Note: Discharge Planning Referral sent via [facility] to [facility]. Madeline Jaeger, Discharge Planning Asst.
--- NOTE | 2023-08-02 12:23 | PN_ITS ---
Subjective Subjective Patient seen and examined. He had no complaints and was lying comfortably in bed. He had an uneventful night. Review of systems otherwise negative. He has remained hemodynamically stable. Objective Data Objective Data Vital Signs: Vital Signs Temp Pulse Resp BP Pulse Ox O2 Del Method O2 Flow Rate 97.8 F 72 18 131/62 H 90 Nasal Cannula 2 08/02/23 06:54 08/02/23 06:54 08/02/23 06:54 08/02/23 06:54 08/02/23 06:54 08/02/23 06:54 08/02/23 06:54 Oxygen Flow Rate (L/min) 2 Oxygen Delivery Method Nasal Cannula Weight: 283 lb 8.231 oz Body Mass Index (BMI) 43.1 Intake & Output: Intake and Output for Last 24 Hours 07/31/23 08/01/23 08/02/23 23:59 23:59 23:59 Intake Total 5824.09 / 5828.79 1508.05 / 1508.05 635 / 635 Output Total 1750 / 1750 600 / 600 Balance 5824.09 / 5828.79 -241.95 / -241.95 35 / 35 Lab / Micro Data 08/02/23 03:52 08/02/23 03:52 Labs: Laboratory Results - last 24 hr 07/31/23 13:56: Diff Path Review Reviewed 08/02/23 03:52: WBC 16.3 H, RBC 4.43 L, Hgb 11.8 L, Hct 38.7 L, MCV 87.4, MCH 26.6 L, MCHC 30.5 L, RDW Std Deviation 51.1 H, RDW Coeff of Pema 15.7 H, Plt Count 257, MPV 9.2, Immature Gran % (Auto) 0.400, Neut % (Auto) 77.9 H, Lymph % (Auto) 12.2 L, [place] % (Auto) 9.2, Eos % (Auto) 0.1, Baso % (Auto) 0.2, Absolute Neuts (auto) 12.7 H, Absolute Lymphs (auto) 2.00, Nucleated RBC % 0, Sodium 143, Potassium 4.1, Chloride 111 H, Carbon Dioxide 30.0, Anion Gap 2 L, BUN 16, Creatinine 0.78, Estim Creat Clear Calc 102.76, Est GFR (MDRD) Af Amer 125, Est GFR (MDRD) Non-Af 103, BUN/Creatinine Ratio 20.6 H, Glucose 117 H, Calcium 8.4 L , Total Bilirubin 0.50, AST 35, ALT 22, Alkaline Phosphatase 128 H, Total Protein 6.1 L, Albumin 2.7 L, Globulin 3.4, Albumin/Globulin Ratio 0.8 L, Vancomycin Trough 14.2 Micro: Microbiology 07/31/23 13:56 Blood Culture (Wb) - Anticubital Right Blood Culture - Preliminary No growth in 48 hours. 07/31/23 13:56 Blood Culture (Wb) - Right Wrist Blood Culture - Preliminary No growth in 48 hours. 07/31/23 15:43 Urine, Clean Catch Urine Culture - Final Culture exhibits no growth. 07/31/23 15:43 Urine Catheter - Catheter Legionella Antigen - Final 07/31/23 15:43 Urine Catheter - Catheter Streptococcus pneumoniae Antigen (M - Final Radiography Diagnostic Testing: Radiology Impression Venous Doppler Study 07/31/23 18:19 Interpretation Summary Deep veins of the bilateral lower extremities are patent and compressible segmentally. There is no evidence of bilateral lower extremity deep vein thrombosis. The right great saphenous vein appears patent and compressible segmentally. Ordering Physician: Duran Lucio Referring Physician: Darnell Bryant MD Performed By: Fartun Smith RVT Physical Exam Const alert, oriented x3 and no apparent distress General Appearance: cooperative HEENT normocephalic, head/scalp atraumatic, hearing grossly normal bilaterally and moist oral mucous membranes Eyes PERRL and EOMs intact bilaterally Neck no lymphadenopathy and supple Lymph Lymphatic: no lymphadenopathy noted and no lymphedema noted Resp Resp Narrative: mildly diminished breath sounds bilaterally, no wheezes or crackles. on 2L of oxygen by nasal canula Cardio regular rate, regular rhythm, S1 normal heart sound, S2 normal heart sound and no murmurs GI normal to inspection, nondistended, normoactive bowel sounds, soft to palpation, non-tender and non-distended GI Narrative: Morbidly obese. Extremity no calf tenderness Extremity Narrative: 3-4+ right greater than left lower extremity edema with severe erythema and chronic venous stasis changes from the knee to the ankle bilaterally. No signs of vascular compromise. Skin Skin Narrative: diffuse erythema of both lower extremities, from ankle to mid dexter, worse in the RLE. Neuro CN's II-XII intact bilaterally, moves all extremities, no focal motor deficits and no sensory deficits noted Motor Exam: strength 5/5 throughout and general weakness Psych thought process normal and cooperative Appearance: appropriate Assessment & Plan Assessment/Plan (1) Cellulitis of right lower extremity: (2) Sepsis: QUALIFIERS: Sepsis type: sepsis due to unspecified organism Sepsis acute organ dysfunction status: with acute organ dysfunction Severe sepsis acute organ dysfunction type: encephalopathy Severe sepsis shock status: with septic shock Qualified Code(s): A41.9 - Sepsis, unspecified organism; R65.21 - Severe sepsis with septic shock; G93.41 - Metabolic encephalopathy (3) Metabolic encephalopathy: PLAN: Plan #Septic shock due to RLE cellulitis * resolved. Now off levophed. * On IV vancomycin and Zosyn. Critical care on board. * Blood culture showed no growth after 48 hours and urine culture shows no growth. WBC is up to 16 today. * #Probable early pneumonia: Chest x-ray showed left lower lobe infiltrate. On broad-spectrum antibiotics. Urine for strep and Legionella negative. #Hypoxia * Likely due to sepsis and probable pneumonia. Remains on 2 L of oxygen. Titrate oxygen to maintain saturation above 90%. Breathing treatments with bronchodilators. * #Elevated D-dimer: * D-dimer was 1.42. unclear why it was checked * CT of the chest not done. Unclear why. Duplex of the lower extremities ordered and patient currently on therapeutic Lovenox. * discussed with critical care attending; low suspicion for PE; duplex negative for DVT. Low suspicion for PE * #Chronic dementia and Normal pressure hydrocephalus * S/p HOUSEKEEPER CAREGIVER shunt. * #Benign essential hypertension: BP meds on hold due to hypotension. #Hyperlipidemia: On statin #CAD s/p CABD echo showed EF of 60% with stage 2 diastolic dysfunction and no regional wall motion abnormalities, moderately elevated pulmonary pressure of 62mmHg. On aspirin and statin #History of esophagitis, s/p right hip replacement #Morbid obesity: BMI is 42.7. Complicates acute care, expected recovery and prognosis. DVT prophylaxis: on lovenox Disposition: transfer out of ICU to PCU today Charges/Coding Visit Charges Inpatient E&M: 30264 Subs Hosp L2
--- NOTE | 2023-08-02 15:05 | CASEMGMT ---
Patient's was asking about Palliative Care. SW met with patient and patient's Mary. Introduced self and role at [facility]. Mary asked SW about Palliative Care. SW explained Palliative Care to them and also provided them with a pamphlet explaining Palliative Care. BRAYAN did explain that [facility] is not the only agency that offers Palliative, but that happened to be the only pamphlet SW had on file. SW also explained once it is known which facility patient will go to at discharge SW will make sure they are interested in a referral being made to Palliative Care. They both thanked BRAYAN. Plan: SNF pending accepting facility and insurance authorization. Cristina Alvarez COLOR WORKER TED
--- NOTE | 2023-08-02 15:07 | CASEMGMT ---
Addendum entered by Madeline Jaeger 08/02/23 16:13: [facility] accepted referral. Asked for precert to be submitted. SW updated. Madeline Jaeger, Discharge Planning Asst. Original Note: Discharge Planning Patient and his notified that [facility] declined referral d/t no bed availability. Next choices are 1) [facility] 2) [place]. Referral sent via [facility] to [facility] and SW updated. Madeline Jaeger, Discharge Planning Asst.
[2023-08-02] MEDS: Atorvastatin Calcium 80 MG Tablet PO (21:12)
[2023-08-02] MEDS: Gabapentin 800 MG Tablet PO (21:12)
[2023-08-03] VITALS (7 sets, daily range): BP systolic 126–165; BP diastolic 61–84; PULSE 68–88; RESP 16–20; TEMP 36.4–36.9; O2SAT 91–96; BMI 43.2
[2023-08-03 05:05] LABS: Absolute Lymphocyte Count 2.21 X10^3/uL (0.83-4.51); Absolute Neutrophil Count 8.1 X10^3/uL (2.0-7.7); Basophil# 0.04 X10^3/uL; Basophil% 0.3 % (0-1); Eosinophil# 0.09 X10^3/uL; Eosinophils% 0.8 % (0-5); Hematocrit 40.4 % (40-54); Hemoglobin 12.4 g/dL (13.0-16.5); Lymphocyte # 2.21 X10^3/ul (0.83-4.51); Lymphocyte % 18.5 % (19-41); Mean Corp Hgb Conc 30.7 g/dL (32-36); Mean Corpuscular Hgb 26.3 pg (27.0-32.0); Mean Corpuscular Volume 85.6 fL (80-94); Mean Platelet Vol. 9.6 fl (6.2-12.0); Monocyte# 1.41 X10^3/uL; Monocyte% 11.8 % (0-10); NRBC Flagged by Analyzer 0 % (0-5); Neutrophil # 8.12 X10^3/uL (2.7-7.7); Neutrophil % 67.9 % (47-70); Platelet Count 271 K/mm3 (150-450); RBC Distribution Width CV 15.7 % (11.6-14.6); RBC Distribution Width SD 49.3 fl (35.1-43.9); Red Blood Count 4.72 M/mm3 (4.6-6.2)
[2023-08-03] MEDS: Piperacil/Tazobactam 3.375 GM in 0.9% Normal Saline (50mL MB+) 50 ML IV ×3 (05:17→21:09)
[2023-08-03] MEDS: Vancomycin HCl 1,750 MG in 0.9% Normal Saline (500mL Bag) 500 ML 250 MG IV ×2 (05:17→18:07)
[2023-08-03] MEDS: 0.9% Saline Lock 10 ML Syringe IV ×2 (05:19→13:28)
[2023-08-03 05:26] LABS: ALB/GLOB Ratio 0.9 RATIO (0.9-2.4); AST(SGOT) 19 U/L (15-37); Alanine Aminotransfer ALT/SGPT 33 U/L (16-61); Albumin, Serum 2.9 g/dL (3.2-5.0); Alkaline Phosphatase 123 U/L (45-117); Anion Gap 3 (5-15); BUN 13 mg/dL (7-18); BUN/Creat Ratio 20.1 RATIO (10-20); Calcium,Total 8.5 mg/dL (8.5-10.1); Chloride 107 mmol/L (98-107); Creatinine, Serum 0.65 mg/dL (0.70-1.30); EST Glomerular Filtration Rate 128 mL/min (>60); Est Glom Filt Rate - Afr Amer 155 mL/min (>60); Estimated Creatinine Clearance 102.89 ml/min; Globulin 3.4 g/dL (2.2-4.2); Glucose 110 mg/dL (74-106); Potassium 3.7 mmol/L (3.5-5.1); Protein, Total 6.3 g/dL (6.4-8.2); Sodium Level 141 mmol/L (136-145)
[2023-08-03] MEDS: Aspirin E.C. 81 MG Tablet PO (06:34)
[2023-08-03] MEDS: Ascorbic Acid 500 MG Tablet 1000 MG PO ×2 (06:34→16:27)
[2023-08-03] MEDS: Carbidopa/Levodopa 25/100 Tablet PO ×3 (06:35→16:27)
--- NOTE | 2023-08-03 06:38 | NURSING ---
pt confused this morning. attesting that he did not agree to be in the hospital refusing some am pills. called his to ask her if she put him in the hospital. reassured pt re:the appropriateness of his placement in the hospital. ultimately agreeable to taking po meds.
[2023-08-03] MEDS: Sodium Chloride 0.65% 1 SPRAY SPRAY.BTL 2 SPRAY NASAL (06:51)
[2023-08-03] MEDS: Zinc Sulfate 50 mg zinc (220 mg) ORAL capsule PO (10:32)
[2023-08-03] MEDS: Lactobacillis Acidophilus 2 CAP PO ×2 (10:32→21:08)
[2023-08-03] MEDS: Enoxaparin 150 MG/ML Syringe 130 MG SC ×2 (10:32→21:08)
[2023-08-03] MEDS: Oxybutynin 5 MG Tablet PO (10:32)
--- NOTE | 2023-08-03 10:55 | PN_ITS ---
Subjective Subjective Patient seen and examined. He was a bit confused this morning and said he was upset with his because she had not told him why he was in the hospital. He has no other complaints otherwise and has remained hemodynamically stable. He is awaiting placement. Objective Data Objective Data Vital Signs: Vital Signs Temp Pulse Resp BP Pulse Ox O2 Del Method O2 Flow Rate 97.5 F L 88 16 126/71 H 94 Nasal Cannula 3 08/03/23 10:08/03/23 10:08/03/23 10:08/03/23 10:08/03/23 10:08/03/23 10:08/03/23 10:28 Oxygen Flow Rate (L/min) 3 Oxygen Delivery Method Nasal Cannula Weight: 284 lb 2.813 oz Body Mass Index (BMI) 43.2 Intake & Output: Intake and Output for Last 24 Hours 08/01/23 08/02/23 08/03/23 23:59 23:59 23:59 Intake Total 1508.05 / 1508.05 2960 / 3080 955 / 955 Output Total 1750 / 1750 3000 / 3000 600 / 600 Balance -241.95 / -241.95 -40 / 80 355 / 355 Lab / Micro Data 08/03/23 04:24 08/03/23 04:24 Labs: Laboratory Results - last 24 hr 08/03/23 04:24: WBC 12.0 H, RBC 4.72, Hgb 12.4 L, Hct 40.4, MCV 85.6, MCH 26.3 L , MCHC 30.7 L, RDW Std Deviation 49.3 H, RDW Coeff of Pema 15.7 H, Plt Count 271, MPV 9.6, Immature Gran % (Auto) 0.700, Neut % (Auto) 67.9, Lymph % (Auto) 18.5 L , [place] % (Auto) 11.8 H, Eos % (Auto) 0.8, Baso % (Auto) 0.3, Absolute Neuts (auto) 8.1 H, Absolute Lymphs (auto) 2.21, Nucleated RBC % 0, Sodium 141, Potassium 3.7, Chloride 107, Carbon Dioxide 31.0, Anion Gap 3 L, BUN 13, Creatinine 0.65 L, Estim Creat Clear Calc 102.89, Est GFR (MDRD) Af Amer 155, Est GFR (MDRD) Non-Af 128, BUN/Creatinine Ratio 20.1 H, Glucose 110 H, Calcium 8.5, Total Bilirubin 1.00, AST 19, ALT 33, Alkaline Phosphatase 123 H, Total Protein 6.3 L, Albumin 2.9 L, Globulin 3.4, Albumin/Globulin Ratio 0.9 Micro: Microbiology 07/31/23 13:56 Blood Culture (Wb) - Anticubital Right Blood Culture - Preliminary No growth in 48 hours. 07/31/23 13:56 Blood Culture (Wb) - Right Wrist Blood Culture - Preliminary No growth in 48 hours. 07/31/23 15:43 Urine, Clean Catch Urine Culture - Final Culture exhibits no growth. 07/31/23 15:43 Urine Catheter - Catheter Legionella Antigen - Final 07/31/23 15:43 Urine Catheter - Catheter Streptococcus pneumoniae Antigen (M - Final Physical Exam Const alert, oriented x3 and no apparent distress Constitutional Narrative: Patient is lethargic but arousable. He is morbidly obese and appears chronically ill. General Appearance: cooperative Orientation / Consciousness: confused, disoriented and lethargic HEENT normocephalic, head/scalp atraumatic, hearing grossly normal bilaterally and moist oral mucous membranes Eyes PERRL and EOMs intact bilaterally Neck no lymphadenopathy and supple Lymph Lymphatic: no lymphadenopathy noted and no lymphedema noted Resp Resp Narrative: mildly diminished breath sounds bilaterally, no wheezes or crackles. on 2L of oxygen by nasal canula Cardio regular rate, regular rhythm, S1 normal heart sound, S2 normal heart sound and no murmurs GI normal to inspection, nondistended, normoactive bowel sounds, soft to palpation, non-tender and non-distended GI Narrative: Morbidly obese. Extremity no calf tenderness Extremity Narrative: 3-4+ right greater than left lower extremity edema with erythema which has improved markedly and chronic venous stasis changes from the knee to the ankle bilaterally. No signs of vascular compromise. Skin Skin Narrative: diffuse erythema of both lower extremities, from ankle to mid dexter, worse in the RLE. erythema has improved significantly Neuro CN's II-XII intact bilaterally, moves all extremities, no focal motor deficits and no sensory deficits noted Motor Exam: strength 5/5 throughout and general weakness Psych thought process normal and cooperative Appearance: appropriate Assessment & Plan Assessment/Plan (1) Cellulitis of right lower extremity: (2) Sepsis: QUALIFIERS: Sepsis type: sepsis due to unspecified organism Sepsis acute organ dysfunction status: with acute organ dysfunction Severe sepsis acute organ dysfunction type: encephalopathy Severe sepsis shock status: with septic shock Qualified Code(s): A41.9 - Sepsis, unspecified organism; R65.21 - Severe sepsis with septic shock; G93.41 - Metabolic encephalopathy (3) Metabolic encephalopathy: PLAN: Plan #Septic shock due to RLE cellulitis * resolved. Now off levophed. * On IV vancomycin and Zosyn. Critical care on board. * Blood culture showed no growth after 48 hours and urine culture shows no growth. WBC is down to 12 * to complete 5 days of antibiotics then dc * #Probable early pneumonia: Chest x-ray showed left lower lobe infiltrate. On broad-spectrum antibiotics. Urine for strep and Legionella negative. #Hypoxia * Likely due to sepsis and probable pneumonia. Remains on 2 L of oxygen. Titrate oxygen to maintain saturation above 90%. Breathing treatments with bronchodilators. * #Elevated D-dimer: * D-dimer was 1.42. * CT of the chest not done. Unclear why. Duplex of the lower extremities ordered and patient currently on therapeutic Lovenox. * discussed with critical care attending; low suspicion for PE; duplex negative for DVT. Low suspicion for PE * #Chronic dementia and Normal pressure hydrocephalus * S/p AEROSPACE ENGINEER OFFICER ARMAMENT shunt. * #Benign essential hypertension: BP meds on hold due to hypotension. Resume BP meds #Hyperlipidemia: On statin #CAD s/p CABD echo showed EF of 60% with stage 2 diastolic dysfunction and no regional wall motion abnormalities, moderately elevated pulmonary pressure of 62mmHg. On aspirin and statin #History of esophagitis, s/p right hip replacement #Morbid obesity: BMI is 42.7. Complicates acute care, expected recovery and prognosis. DVT prophylaxis: on lovenox Disposition: awaiting placement Charges/Coding Visit Charges Inpatient E&M: 13955 Subs Hosp L2
[2023-08-03 11:15] LABS: Magnesium 2.1 mg/dL (1.6-2.6)
[2023-08-03 16:58] LABS: Vancomycin, Trough Level 17.6 ug/mL (5.0-15.0)
--- NOTE | 2023-08-03 18:16 | PCM.RX.CS ---
Consult Antibiotic Management Pharmacy has been consulted to manage selected antibiotic: Vancomycin Type of Intervention Type of Consult: Follow-up Prior Doses of Antibiotics Prior Doses of Antibiotics Received/Current Regimen: current dose is vanc 1750mg IV q12h Labs Labs: Sodium 141 mmol/L (136-145) 08/03/23 04:24 Potassium 3.7 mmol/L (3.5-5.1) 08/03/23 04:24 Chloride 107 mmol/L (98-107) 08/03/23 04:24 Carbon Dioxide 31.0 mmol/L (21.0-32.0) 08/03/23 04:24 Anion Gap 3 (5-15) L 08/03/23 04:24 BUN 13 mg/dL (7-18) 08/03/23 04:24 Creatinine 0.65 mg/dL (0.70-1.30) L 08/03/23 04:24 Est GFR (MDRD) Af Amer 155 mL/min (>60) 08/03/23 04:24 Est GFR (MDRD) Non-Af 128 mL/min (>60) 08/03/23 04:24 BUN/Creatinine Ratio 20.1 RATIO (10-20) H 08/03/23 04:24 Glucose 110 mg/dL (74-106) H 08/03/23 04:24 Vancomycin Trough 17.6 ug/mL (5.0-15.0) H 08/03/23 16:29 Microbiology Microbiology: Microbiology 07/31/23 13:56 Blood Culture (Wb) - Anticubital Right Blood Culture - Preliminary No growth in 48 hours. 07/31/23 13:56 Blood Culture (Wb) - Right Wrist Blood Culture - Preliminary No growth in 48 hours. 07/31/23 15:43 Urine, Clean Catch Urine Culture - Final Culture exhibits no growth. 07/31/23 15:43 Urine Catheter - Catheter Legionella Antigen - Final 07/31/23 15:43 Urine Catheter - Catheter Streptococcus pneumoniae Antigen (M - Final Dosing Weight Weight used for dosin.9 kg Estimated Creatinine Clearance Estimated Creatinine Clearance: 103ml/min Goal Trough Goal Trough: 15-20 mcg/mL Pharmacy Plan for Drug Dosing Pharmacy Plan for Drug Dosing: The vanc trough drawn at 16:29 today (approx 11.25 hours after the previous dose) was 17.6. This is in goal range so will keep same dose. Repeat a trough in 2 days per protocol. Pharmacy Service will continue to monitor and adjust dosing as required. Follow-Up Labs Follow-Up Labs: Trough: Vancomycin Date/Time Labs Ordered Labs to be done on [date and time ordered]: 08/05/23 16:30
[2023-08-03] MEDS: Gabapentin 800 MG Tablet PO (21:08)
[2023-08-03] MEDS: Atorvastatin Calcium 80 MG Tablet PO (21:08)
[2023-08-04] VITALS (8 sets, daily range): BP systolic 126–194; BP diastolic 77–94; PULSE 70–81; RESP 16–18; TEMP 36–37.1; O2SAT 90–96; BMI 43.1
[2023-08-04] MEDS: Acetaminophen 325 MG Tablet 650 MG PO (02:47)
[2023-08-04] MEDS: traMADol 50 MG Tablet PO (04:12)
[2023-08-04] MEDS: Piperacil/Tazobactam 3.375 GM in 0.9% Normal Saline (50mL MB+) 50 ML IV (05:14)
[2023-08-04] MEDS: Vancomycin HCl 1,750 MG in 0.9% Normal Saline (500mL Bag) 500 ML 250 MG IV (05:14)
[2023-08-04] MEDS: Carbidopa/Levodopa 25/100 Tablet PO ×3 (05:44→15:03)
[2023-08-04 05:58] LABS: Absolute Lymphocyte Count 1.78 X10^3/uL (0.83-4.51); Basophil# 0.06 X10^3/uL; Basophil% 0.4 % (0-1); Eosinophil# 0.22 X10^3/uL; Eosinophils% 1.6 % (0-5); Hematocrit 42.5 % (40-54); Lymphocyte # 1.78 X10^3/ul (0.83-4.51); Lymphocyte % 13.3 % (19-41); Mean Corp Hgb Conc 30.6 g/dL (32-36); Mean Corpuscular Hgb 25.8 pg (27.0-32.0); Mean Corpuscular Volume 84.5 fL (80-94); Mean Platelet Vol. 9.3 fl (6.2-12.0); NRBC Flagged by Analyzer 0 % (0-5); Platelet Count 313 K/mm3 (150-450); RBC Distribution Width CV 15.8 % (11.6-14.6); RBC Distribution Width SD 48.2 fl (35.1-43.9); Red Blood Count 5.03 M/mm3 (4.6-6.2); White Blood Count 13.4 K/mm3 (4.4-11.0)
[2023-08-04 06:14] LABS: ALB/GLOB Ratio 0.8 RATIO (0.9-2.4); AST(SGOT) 20 U/L (15-37); Alanine Aminotransfer ALT/SGPT 30 U/L (16-61); Albumin, Serum 2.8 g/dL (3.2-5.0); Alkaline Phosphatase 119 U/L (45-117); Anion Gap 3 (5-15); BUN 10 mg/dL (7-18); BUN/Creat Ratio 15.3 RATIO (10-20); Calcium,Total 8.6 mg/dL (8.5-10.1); Chloride 106 mmol/L (98-107); Creatinine, Serum 0.65 mg/dL (0.70-1.30); EST Glomerular Filtration Rate 126 mL/min (>60); Est Glom Filt Rate - Afr Amer 152 mL/min (>60); Estimated Creatinine Clearance 102.76 ml/min; Globulin 3.7 g/dL (2.2-4.2); Glucose 120 mg/dL (74-106); Potassium 4.2 mmol/L (3.5-5.1); Protein, Total 6.5 g/dL (6.4-8.2); Sodium Level 141 mmol/L (136-145)
[2023-08-04] MEDS: Enoxaparin 150 MG/ML Syringe 130 MG SC ×2 (08:45→20:53)
[2023-08-04] MEDS: Oxybutynin 5 MG Tablet PO (08:46)
[2023-08-04] MEDS: Zinc Sulfate 50 mg zinc (220 mg) ORAL capsule PO (08:46)
[2023-08-04] MEDS: Lactobacillis Acidophilus 2 CAP PO ×2 (08:46→20:53)
[2023-08-04] MEDS: Aspirin E.C. 81 MG Tablet PO (08:47)
[2023-08-04] MEDS: Ascorbic Acid 500 MG Tablet 1000 MG PO ×2 (08:47→15:03)
--- NOTE | 2023-08-04 09:01 | PCM.CONS.C ---
Assessment & Plan Assessment/Plan (1) NSVT (nonsustained ventricular tachycardia): PLAN: Telemetry readings demonstrated evidence of nonsustained ventricular tachycardia which were asymptomatic. He did have an echocardiogram demonstrating preserved ejection fraction but elevated pulmonary pressures. Will continue with current beta-lyly and check magnesium and potassium to make sure that they are in the appropriate range. Though ischemia cannot be completely excluded he has declined further evaluation in the past and therefore we will continue with expectant management. Will resume beta-lyly (2) Aortocoronary bypass status: PLAN: He is status post coronary bypass surgery as noted previously. He has no angina and with his overall clinical condition we will pursue medical therapy. (3) Ischemic cardiomyopathy: PLAN: He does have evidence of ischemic cardiomyopathy as well as an elevated pulmonary pressure. Will try intravenous Lasix for a few days to see how he does. Thank you for allowing me to participate in the care of your patient. Please don't hesitate to call if any issues arise. HPI Consult Data Date of Consult: 08/04/23 HPI Narrative HPI Narrative: MIGUEL GAYLE, is a 78 M who presents to the hospital and has been treated for cellulitis. He had an echocardiogram performed which demonstrated evidence of elevated pulmonary pressures. He was also noted to have some runs of nonsustained ventricular tachycardia and cardiology was called for further evaluation and management. As you know he does have a history of coronary artery disease status post coronary bypass surgery in 2008 with a CASTILLO to the marginal of the circumflex, saphenous vein graft to the diagonal branch, saphenous vein graft to the second diagonal branch and sequential to the fourth diagonal branch. He also has a history of ischemic cardiomyopathy hyperlipidemia and hypertension. He did have a stress test in 2022 which demonstrated mild inferior ischemia but he declined further evaluation with an angiogram. He had been seen in the office earlier in the week was noted to be hypotensive with cellulitic legs a rapid response was called and he was sent to the emergency room. He was diagnosed with sepsis from the cellulitis and he was admitted. At this particular time he appears to be lying in bed and asymptomatic with no complaints. [facility] Medical History (Updated 08/04/23 @ 09:[address] Marques Man MD) Atherosclerotic heart disease of [place] coronary artery without angina pectoris Edema Ischemic cardiomyopathy Old myocardial infarction Pure hypercholesterolemia Home Medications ropinirole 3 mg tablet 3 mg PO 4X/DAY PRN restless leg(s) 05/11/16 [History Last Taken 02/07/18 05:45 3 MG] carbidopa 25 mg-levodopa 100 mg tablet 1 - 2 tab PO QHS TREMORS 10/10/16 [History Last Taken Unknown] ibuprofen 600 mg tablet 600 mg PO PRN PRN Pain 10/10/16 [History Last Taken Unknown] gabapentin 800 mg tablet 800 mg PO QHS PAIN 30 days ##60 06/19/17 [History Last Taken Unknown] cyclobenzaprine 10 mg tablet 10 mg PO BID PRN Bladder Spasm 07/14/19 [History Last Taken Unknown] nitroglycerin 0.4 mg sublingual tablet (Nitrostat) 0.4 mg sublingual Q5M PRN chest pain #25 tabs 07/27/20 [Rx Last Taken Unknown] furosemide 40 mg tablet 40 mg PO .COMPLEX edema 04/19/21 [History Last Taken Unknown] aspirin 81 mg tablet,delayed release (Adult Aspirin Regimen) 81 mg PO QDAY #90 tabs 01/25/23 [Rx Last Taken Unknown] oxybutynin chloride 5 mg tablet 5 mg PO DAILY 01/25/23 [History Last Taken Unknown] atorvastatin 80 mg tablet See Rx Instructions .Route .COMPLEX #90 tabs 03/22/23 [Rx Last Taken Unknown] isosorbide mononitrate 20 mg tablet See Rx Instructions .Route .COMPLEX #90 tabs 03/22/23 [Rx Last Taken Unknown] losartan 50 mg tablet See Rx Instructions .Route .COMPLEX #90 tabs 05/23/23 [Rx Last Taken Unknown] carvedilol 12.5 mg tablet 25 mg PO BID 07/31/23 [History Last Taken Unknown] pramipexole 1.5 mg tablet,extended release 24 hr (Mirapex ER) 1.5 mg PO QHS RESTLESS LEGS 07/31/23 [History Last Taken Unknown] tramadol 50 mg tablet 50 mg PO TID PRN 07/31/23 [History Last Taken Unknown] trospium 20 mg tablet 20 mg PO BID BLADDER 07/31/23 [History Last Taken Unknown] Allergy/AdvReac Type Severity Reaction Status Date / Time lisinopril AdvReac Other Verified 07/31/23 13:03 Family History Father Colon cancer Mother CVA (cerebral vascular accident) Hypertension Surgical History Aortocoronary bypass status (~11/30/08) History of right hip replacement History of shoulder surgery Ventriculo-peritoneal shunt status Social History Smoking Status: Never smoker alcohol intake: never substance use type: does not use caffeine: Yes (1-3 servings per day) Type: coffee what type of physical activity do you participate in: none seatbelt use: always do you feel safe at home: Yes ROS Constitutional Constitutional: Denies fever(s) or weight loss Eyes Eyes: Reports systems reviewed and no addt'l complaints, except as documented ENT HEENT: Reports systems reviewed and no addt'l complaints, except as documented Cardiovascular Cardiovascular: Denies chest pain at rest, chest pain with activity, dyspnea at rest, dyspnea on exertion, edema, palpitations or paroxysmal nocturnal dyspnea Respiratory/Chest Respiratory/Chest: Denies dyspnea on exertion, productive cough, shortness of breath at rest or shortness of breath with exertion Gastrointestinal Gastrointestinal: Denies change in bowel habits, nausea, vomiting or weight changes Genitourinary Genitourinary: Denies difficulty urinating Musculoskeletal Musculoskeletal: Denies joint stiffness or muscle weakness Integumentary Integumentary: Denies lesions Neurologic Neurologic: Denies dizziness or syncope Psychiatric Psychiatric: Denies anxiety Endocrine Endocrinology: Denies excessive sweating or fatigue Hematologic/Lymphatic Hematologic/Lymphatic: Denies anemia Allergic/Immunologic Allergic/Immunologic: Denies seasonal rhinorrhea Physical Exam Const alert, oriented x3 and no apparent distress General Appearance: cooperative HEENT hearing grossly normal bilaterally Head and Scalp: atraumatic Eyes EOMs intact bilaterally Neck General: normal visual inspection Chest inspection of chest normal and palpation of chest normal Resp normal respiratory effort Auscultation: clear to auscultation bilaterally Cardio regular rate, regular rhythm, S1 normal heart sound and S2 normal heart sound Jugular Venous Distention: JVD GI normal to inspection, nondistended, normoactive bowel sounds Extremity normal capillary refill Extremity Narrative: Bilateral cellulitic looking legs. General Extremity: edema bilateral Peripheral Pulses: Yes pulses 2+ throughout and femoral pulses present Skin no rashes or lesions noted Neuro oriented x3 and CN's II-XII intact bilaterally Psych Appearance: grossly normal and appropriate Risk Stratification Risk Stratification Applicable: No Objective Data Vital Signs: Vital Signs Temp Pulse Resp BP Pulse Ox O2 Del Method O2 Flow Rate 96.8 F L 72 18 194/87 H 93 Nasal Cannula 2 08/04/23 08:43 08/04/23 08:43 08/04/23 08:43 08/04/23 08:43 08/04/23 08:43 08/04/23 08:43 08/04/23 08:43 Oxygen Flow Rate (L/min) 2 Oxygen Delivery Method Nasal Cannula Weight: 283 lb 8.231 oz Body Mass Index (BMI) 43.1 Intake & Output: Intake and Output for Last 24 Hours 08/02/23 08/03/23 08/04/23 23:59 23:59 23:59 Intake Total 2960 / 3080 2790 / 2910 945 / 945 Output Total 3000 / 3000 2300 / 2550 1250 / 1250 Balance -40 / 80 490 / 360 -305 / -305 Lab / Micro Data 08/04/23 05:41 08/04/23 05:41 Labs: Laboratory Results - last 24 hr 08/03/23 04:24: Magnesium 2.1 08/03/23 16:29: Vancomycin Trough 17.6 H 08/04/23 05:41: WBC 13.4 H, RBC 5.03, Hgb 13.0, Hct 42.5, MCV 84.5, MCH 25.8 L, MCHC 30.6 L, RDW Std Deviation 48.2 H, RDW Coeff of Pema 15.8 H, Plt Count 313, MPV 9.3, Immature Gran % (Auto) 0.700, Neut % (Auto) 75.0 H, Lymph % (Auto) 13.3 L, [place] % (Auto) 9.0, Eos % (Auto) 1.6, Baso % (Auto) 0.4, Absolute Neuts (auto) 10.0 H, Absolute Lymphs (auto) 1.78, Nucleated RBC % 0, Sodium 141, Potassium 4.2, Chloride 106, Carbon Dioxide 32.0, Anion Gap 3 L, BUN 10, Creatinine 0.65 L, Estim Creat Clear Calc 102.76, Est GFR (MDRD) Af Amer 152, Est GFR (MDRD) Non-Af 126, BUN/Creatinine Ratio 15.3, Glucose 120 H, Calcium 8.6, Total Bilirubin 1.00, AST 20, ALT 30, Alkaline Phosphatase 119 H, Total Protein 6.5, Albumin 2.8 L, Globulin 3.7, Albumin/Globulin Ratio 0.8 L Cardiology Labs/Tests 08/03/23 04:24: Magnesium 2.1 08/04/23 05:41: WBC 13.4 H, RBC 5.03, Hgb 13.0, Hct 42.5, MCV 84.5, MCH 25.8 L, MCHC 30.6 L, Plt Count 313, MPV 9.3, Immature Gran % (Auto) 0.700, Neut % (Auto) 75.0 H, Lymph % (Auto) 13.3 L, [place] % (Auto) 9.0, Eos % (Auto) 1.6, Baso % (Auto) 0.4, Absolute Neuts (auto) 10.0 H, Nucleated RBC % 0, Sodium 141, Potassium 4.2, Chloride 106, Carbon Dioxide 32.0, Anion Gap 3 L, BUN 10, Creatinine 0.65 L, Est GFR (MDRD) Af Amer 152, Est GFR (MDRD) Non-Af 126, BUN/Creatinine Ratio 15.3, Glucose 120 H, Calcium 8.6, Total Bilirubin 1.00 Rhythm: EKG: ECHO: Stress Test: Cardiac Cath: PCI: CT Surgery: Holter monitor: EPS: PPM: CXR: Chest CT Scan:
[2023-08-04] MEDS: Furosemide 40 MG/4 ML Vial IV ×2 (09:09→17:30)
[2023-08-04] MEDS: Carvedilol 6.25 MG Tablet PO ×2 (09:53→20:53)
--- NOTE | 2023-08-04 10:07 | PN_ITS ---
Subjective Subjective Patient seen and examined. He had no active complaints. He is on 2 L of oxygen. Review of systems otherwise negative. Objective Data Objective Data Vital Signs: Vital Signs Temp Pulse Resp BP Pulse Ox O2 Del Method O2 Flow Rate 98.7 F 81 16 149/77 H 93 Nasal Cannula 2 08/04/23 09:51 08/04/23 09:51 08/04/23 09:51 08/04/23 09:51 08/04/23 09:51 08/04/23 09:51 08/04/23 09:51 Oxygen Flow Rate (L/min) 2 Oxygen Delivery Method Nasal Cannula Weight: 283 lb 8.231 oz Body Mass Index (BMI) 43.1 Intake & Output: Intake and Output for Last 24 Hours 08/02/23 08/03/23 08/04/23 23:59 23:59 23:59 Intake Total 2960 / 3080 2790 / 2910 945 / 945 Output Total 3000 / 3000 2300 / 2550 1250 / 1250 Balance -40 / 80 490 / 360 -305 / -305 Lab / Micro Data 08/04/23 05:41 08/04/23 05:41 Labs: Laboratory Results - last 24 hr 08/03/23 04:24: Magnesium 2.1 08/03/23 16:29: Vancomycin Trough 17.6 H 08/04/23 05:41: WBC 13.4 H, RBC 5.03, Hgb 13.0, Hct 42.5, MCV 84.5, MCH 25.8 L, MCHC 30.6 L, RDW Std Deviation 48.2 H, RDW Coeff of Pema 15.8 H, Plt Count 313, MPV 9.3, Immature Gran % (Auto) 0.700, Neut % (Auto) 75.0 H, Lymph % (Auto) 13.3 L, [place] % (Auto) 9.0, Eos % (Auto) 1.6, Baso % (Auto) 0.4, Absolute Neuts (auto) 10.0 H, Absolute Lymphs (auto) 1.78, Nucleated RBC % 0, Sodium 141, Potassium 4.2, Chloride 106, Carbon Dioxide 32.0, Anion Gap 3 L, BUN 10, Creatinine 0.65 L , Estim Creat Clear Calc 102.76, Est GFR (MDRD) Af Amer 152, Est GFR (MDRD) Non- Af 126, BUN/Creatinine Ratio 15.3, Glucose 120 H, Calcium 8.6, Total Bilirubin 1.00, AST 20, ALT 30, Alkaline Phosphatase 119 H, Total Protein 6.5, Albumin 2.8 L, Globulin 3.7, Albumin/Globulin Ratio 0.8 L Micro: Microbiology 07/31/23 13:56 Blood Culture (Wb) - Anticubital Right Blood Culture - Preliminary No growth in 48 hours. 07/31/23 13:56 Blood Culture (Wb) - Right Wrist Blood Culture - Preliminary No growth in 48 hours. 07/31/23 15:43 Urine, Clean Catch Urine Culture - Final Culture exhibits no growth. 07/31/23 15:43 Urine Catheter - Catheter Legionella Antigen - Final 07/31/23 15:43 Urine Catheter - Catheter Streptococcus pneumoniae Antigen (M - Final Physical Exam Const alert, oriented x3 and no apparent distress General Appearance: cooperative Orientation / Consciousness: lethargic HEENT normocephalic, head/scalp atraumatic, hearing grossly normal bilaterally and moist oral mucous membranes Eyes PERRL and EOMs intact bilaterally Neck no lymphadenopathy and supple Lymph Lymphatic: no lymphadenopathy noted and no lymphedema noted Resp Resp Narrative: mildly diminished breath sounds bilaterally, no wheezes or crackles. on 2L of oxygen by nasal canula Cardio regular rate, regular rhythm, S1 normal heart sound, S2 normal heart sound and no murmurs GI normal to inspection, nondistended, normoactive bowel sounds and soft to palpa tion GI Narrative: Morbidly obese. Extremity no calf tenderness Extremity Narrative: 3-4+ right greater than left lower extremity edema with erythema which has improved markedly and chronic venous stasis changes from the knee to the ankle bilaterally. No signs of vascular compromise. General Extremity: no tenderness to palpation of joints or extremities Skin Skin Narrative: diffuse erythema of both lower extremities, from ankle to mid dexter, worse in the RLE. erythema has improved significantly Neuro CN's II-XII intact bilaterally, moves all extremities, no focal motor deficits and no sensory deficits noted Motor Exam: strength 5/5 throughout and general weakness Psych thought process normal and cooperative Appearance: appropriate Assessment & Plan Assessment/Plan (1) Cellulitis of right lower extremity: (2) Sepsis: QUALIFIERS: Sepsis type: sepsis due to unspecified organism Sepsis acute organ dysfunction status: with acute organ dysfunction Severe sepsis acute organ dysfunction type: encephalopathy Severe sepsis shock status: with septic shock Qualified Code(s): A41.9 - Sepsis, unspecified organism; R65.21 - Severe sepsis with septic shock; G93.41 - Metabolic encephalopathy (3) Metabolic encephalopathy: PLAN: Plan #Septic shock due to RLE cellulitis * resolved. Now off levophed. * On IV vancomycin and Zosyn. Critical care on board. * Blood culture showed no growth after 48 hours and urine culture shows no growth. WBC is slightly up to 13.4 today. * Will switch to p.o. doxycycline today. * #Probable early pneumonia: Chest x-ray showed left lower lobe infiltrate. On broad-spectrum antibiotics as above. Urine for strep and Legionella negative. #Hypoxia * Likely due to sepsis and probable pneumonia. Remains on 2 L of oxygen. Titrate oxygen to maintain saturation above 90%. Breathing treatments with bronchodilators. Will switch to p.o. doxycycline today. * #Elevated D-dimer: * D-dimer was 1.42. * CT of the chest not done. Unclear why. Duplex of the lower extremities ordered and patient currently on therapeutic Lovenox. * discussed with critical care attending; low suspicion for PE; duplex negative for DVT. Low suspicion for PE * #Chronic dementia and Normal pressure hydrocephalus * S/p [employer] shunt. * #Benign essential hypertension: BP meds on hold due to hypotension. Resume BP me ds #Hyperlipidemia: On statin #CAD s/p CABD echo showed EF of 60% with stage 2 diastolic dysfunction and no regional wall motion abnormalities, moderately elevated pulmonary pressure of 62mmHg. On aspirin and statin #History of esophagitis, s/p right hip replacement #Morbid obesity: BMI is 42.7. Complicates acute care, expected recovery and prognosis. DVT prophylaxis: on lovenox Disposition: awaiting placement Charges/Coding Visit Charges Inpatient E&M: 45296 Subs Hosp L2
[2023-08-04] MEDS: Atorvastatin Calcium 80 MG Tablet PO (20:53)
[2023-08-04] MEDS: Gabapentin 800 MG Tablet PO (20:53)
[2023-08-04] MEDS: Doxycycline 100 MG CAPSULE PO (20:54)
[2023-08-04] MEDS: Pramipexole Di-HCl 0.5 MG Tablet 1.5 MG PO (23:33)
[2023-08-05] VITALS (7 sets, daily range): BP systolic 104–143; BP diastolic 46–81; PULSE 70–91; RESP 16–20; TEMP 35.6–37.1; O2SAT 93–100; BMI 43.1
[2023-08-05] MEDS: traMADol 50 MG Tablet PO (00:11)
[2023-08-05] MEDS: Alteplase 2 MG/2 ML Vial IV (01:38)
[2023-08-05] MEDS: 0.9% Saline Lock 10 ML Syringe IV ×3 (05:58→17:25)
[2023-08-05 06:27] LABS: Absolute Lymphocyte Count 1.97 X10^3/uL (0.83-4.51); Absolute Neutrophil Count 8.4 X10^3/uL (2.0-7.7); Basophil# 0.06 X10^3/uL; Basophil% 0.5 % (0-1); Eosinophil# 0.29 X10^3/uL; Eosinophils% 2.4 % (0-5); Hematocrit 41.7 % (40-54); Lymphocyte # 1.97 X10^3/ul (0.83-4.51); Lymphocyte % 16.5 % (19-41); Mean Corp Hgb Conc 31.2 g/dL (32-36); Mean Corpuscular Hgb 26.6 pg (27.0-32.0); Mean Corpuscular Volume 85.3 fL (80-94); Mean Platelet Vol. 9.3 fl (6.2-12.0); Monocyte# 1.06 X10^3/uL; Monocyte% 8.9 % (0-10); NRBC Flagged by Analyzer 0 % (0-5); Neutrophil # 8.41 X10^3/uL (2.7-7.7); Neutrophil % 70.6 % (47-70); Platelet Count 293 K/mm3 (150-450); RBC Distribution Width CV 15.8 % (11.6-14.6); RBC Distribution Width SD 49.1 fl (35.1-43.9); Red Blood Count 4.89 M/mm3 (4.6-6.2); White Blood Count 11.9 K/mm3 (4.4-11.0)
[2023-08-05 06:50] LABS: Magnesium 2.3 mg/dL (1.6-2.6); Phosphorus 3.5 mg/dL (2.5-4.9)
[2023-08-05 06:52] LABS: ALB/GLOB Ratio 0.8 RATIO (0.9-2.4); AST(SGOT) 28 U/L (15-37); Alanine Aminotransfer ALT/SGPT 36 U/L (16-61); Albumin, Serum 2.8 g/dL (3.2-5.0); Alkaline Phosphatase 111 U/L (45-117); Anion Gap 3 (5-15); BUN 11 mg/dL (7-18); BUN/Creat Ratio 15.4 RATIO (10-20); Calcium,Total 8.6 mg/dL (8.5-10.1); Chloride 102 mmol/L (98-107); Creatinine, Serum 0.71 mg/dL (0.70-1.30); EST Glomerular Filtration Rate 114 mL/min (>60); Est Glom Filt Rate - Afr Amer 138 mL/min (>60); Estimated Creatinine Clearance 102.76 ml/min; Globulin 3.5 g/dL (2.2-4.2); Glucose 120 mg/dL (74-106); Potassium 3.8 mmol/L (3.5-5.1); Protein, Total 6.3 g/dL (6.4-8.2); Sodium Level 139 mmol/L (136-145)
--- NOTE | 2023-08-05 07:22 | PN.CARD_ITS ---
Subjective Subjective Patient seen and evaluated. Objective Data Vital Signs: Vital Signs Temp Pulse Resp BP Pulse Ox O2 Del Method O2 Flow Rate 97.5 F L 74 18 135/81 H 94 Nasal Cannula 2 08/05/23 03:00 08/05/23 03:00 08/05/23 03:00 08/05/23 03:00 08/05/23 03:00 08/05/23 03:00 08/05/23 03:00 Oxygen Flow Rate (L/min) 2 Oxygen Delivery Method Nasal Cannula Weight: 283 lb 8.231 oz Body Mass Index (BMI) 43.1 Intake & Output: Intake and Output for Last 24 Hours 08/03/23 08/04/23 08/05/23 23:59 23:59 23:59 Intake Total 2790 / 2910 2555 / 2555 Output Total 2300 / 2550 6100 / 6100 375 / 375 Balance 490 / 360 -3545 / -3545 -375 / -375 Lab / Micro Data 08/05/23 06:08 08/05/23 06:08 Labs: Laboratory Results - last 24 hr 08/05/23 06:08: WBC 11.9 H, RBC 4.89, Hgb 13.0, Hct 41.7, MCV 85.3, MCH 26.6 L, MCHC 31.2 L, RDW Std Deviation 49.1 H, RDW Coeff of Pema 15.8 H, Plt Count 293, MPV 9.3, Immature Gran % (Auto) 1.100 H, Neut % (Auto) 70.6 H, Lymph % (Auto) 16.5 L, [place] % (Auto) 8.9, Eos % (Auto) 2.4, Baso % (Auto) 0.5, Absolute Neuts (auto) 8.4 H, Absolute Lymphs (auto) 1.97, Nucleated RBC % 0, Sodium 139, Potassium 3.8, Chloride 102, Carbon Dioxide 34.0 H, Anion Gap 3 L, BUN 11, Creatinine 0.71, Estim Creat Clear Calc 102.76, Est GFR (MDRD) Af Amer 138, Est GFR (MDRD) Non-Af 114, BUN/Creatinine Ratio 15.4, Glucose 120 H, Calcium 8.6, Phosphorus 3.5, Magnesium 2.3, Total Bilirubin 0.70, AST 28, ALT 36, Alkaline Phosphatase 111, Total Protein 6.3 L, Albumin 2.8 L, Globulin 3.5, Albumin/Globulin Ratio 0.8 L Cardiology Labs/Tests 08/05/23 06:08: WBC 11.9 H, RBC 4.89, Hgb 13.0, Hct 41.7, MCV 85.3, MCH 26.6 L, MCHC 31.2 L, Plt Count 293, MPV 9.3, Immature Gran % (Auto) 1.100 H, Neut % (Auto) 70.6 H, Lymph % (Auto) 16.5 L, [place] % (Auto) 8.9, Eos % (Auto) 2.4, Baso % (Auto) 0.5, Absolute Neuts (auto) 8.4 H, Nucleated RBC % 0, Sodium 139, Potassium 3.8, Chloride 102, Carbon Dioxide 34.0 H, Anion Gap 3 L, BUN 11, Creatinine 0.71, Est GFR (MDRD) Af Amer 138, Est GFR (MDRD) Non-Af 114, BUN/Creatinine Ratio 15.4, Glucose 120 H, Calcium 8.6, Phosphorus 3.5, Magnesium 2.3, Total Bilirubin 0.70 Rhythm: EKG: ECHO: Stress Test: Cardiac Cath: PCI: CT Surgery: Holter monitor: EPS: PPM: CXR: Chest CT Scan: Physical Exam Const alert, oriented x3 and no apparent distress General Appearance: cooperative HEENT hearing grossly normal bilaterally Head and Scalp: atraumatic Eyes EOMs intact bilaterally Neck General: normal visual inspection Chest inspection of chest normal and palpation of chest normal Resp normal respiratory effort Auscultation: clear to auscultation bilaterally Cardio regular rate, regular rhythm, S1 normal heart sound and S2 normal heart sound Jugular Venous Distention: JVD GI normal to inspection, nondistended, normoactive bowel sounds Extremity normal capillary refill Extremity Narrative: Bilateral cellulitic changes noted General Extremity: edema bilateral Peripheral Pulses: Yes pulses 2+ throughout and femoral pulses present Skin no rashes or lesions noted Neuro oriented x3 and CN's II-XII intact bilaterally Psych Appearance: grossly normal and appropriate Assessment & Plan Assessment/Plan (1) NSVT (nonsustained ventricular tachycardia): PLAN: Telemetry readings demonstrated evidence of nonsustained ventricular tachycardia which were asymptomatic. He did have an echocardiogram demonstrating preserved ejection fraction but elevated pulmonary pressures. Will continue with current beta-lyly and check magnesium and potassium to make sure that they are in the appropriate range. * Though ischemia cannot be completely excluded he has declined further evaluation in the past and therefore we will continue with expectant management. * Will continue beta-lyly (2) Aortocoronary bypass status: PLAN: He is status post coronary bypass surgery as noted previously. He has no angina and with his overall clinical condition we will pursue medical therapy. (3) Ischemic cardiomyopathy: PLAN: He does have evidence of ischemic cardiomyopathy as well as an elevated pulmonary pressure. Will try intravenous Lasix for a few days to see how he does. Thank you for allowing me to participate in the care of your patient. Please don't hesitate to call if any issues arise.
--- NOTE | 2023-08-05 08:54 | PN.HOSP_ITS ---
Reason for Visit Reason for Visit: Diagnoses Sepsis, unspecified organism (07/31/23) Unspecified dementia, unspecified severity, without behavioral disturbance, psychotic disturbance, mood disturbance, and anxiety (07/31/23) (Idiopathic) normal pressure hydrocephalus (07/31/23) Metabolic encephalopathy (07/31/23) Ischemic cardiomyopathy (07/31/23) Other ventricular tachycardia (07/31/23) Hypotension, unspecified (07/31/23) Cellulitis of right lower limb (07/31/23) Severe sepsis with septic shock (07/31/23) Presence of aortocoronary bypass graft (07/31/23) Presence of cerebrospinal fluid drainage device (07/31/23) Subjective Subjective LE erythema improved. Does have chronic edema. Objective Data Objective Data Vital Signs: Vital Signs Temp Pulse Resp BP Pulse Ox O2 Del Method O2 Flow Rate 36.4 C L 74 18 135/81 H 95 Nasal Cannula 2 08/05/23 03:00 08/05/23 03:00 08/05/23 03:00 08/05/23 03:00 08/05/23 07:42 08/05/23 07:42 08/05/23 07:42 Oxygen Flow Rate (L/min) 2 Oxygen Delivery Method Nasal Cannula Weight: 128.6 kg Body Mass Index (BMI) 43.1 Intake & Output: Intake and Output for Last 24 Hours 08/03/23 08/04/23 08/05/23 23:59 23:59 23:59 Intake Total 2790 / 2910 2555 / 2555 Output Total 2300 / 2550 6100 / 6100 375 / 375 Balance 490 / 360 -3545 / -3545 -375 / -375 Lab / Micro Data 08/05/23 06:08 08/05/23 06:08 Labs: Laboratory Results - last 24 hr 08/05/23 06:08: WBC 11.9 H, RBC 4.89, Hgb 13.0, Hct 41.7, MCV 85.3, MCH 26.6 L, MCHC 31.2 L, RDW Std Deviation 49.1 H, RDW Coeff of Pema 15.8 H, Plt Count 293, MPV 9.3, Immature Gran % (Auto) 1.100 H, Neut % (Auto) 70.6 H, Lymph % (Auto) 16.5 L, [place] % (Auto) 8.9, Eos % (Auto) 2.4, Baso % (Auto) 0.5, Absolute Neuts (auto) 8.4 H, Absolute Lymphs (auto) 1.97, Nucleated RBC % 0, Sodium 139, Potassium 3.8, Chloride 102, Carbon Dioxide 34.0 H, Anion Gap 3 L, BUN 11, Creatinine 0.71, Estim Creat Clear Calc 102.76, Est GFR (MDRD) Af Amer 138, Est GFR (MDRD) Non-Af 114, BUN/Creatinine Ratio 15.4, Glucose 120 H, Calcium 8.6, Phosphorus 3.5, Magnesium 2.3, Total Bilirubin 0.70, AST 28, ALT 36, Alkaline Phosphatase 111, Total Protein 6.3 L, Albumin 2.8 L, Globulin 3.5, Albumin/Globulin Ratio 0.8 L Micro: Microbiology 07/31/23 13:56 Blood Culture (Wb) - Anticubital Right Blood Culture - Preliminary No growth in 48 hours. 07/31/23 13:56 Blood Culture (Wb) - Right Wrist Blood Culture - Preliminary No growth in 48 hours. 07/31/23 15:43 Urine, Clean Catch Urine Culture - Final Culture exhibits no growth. 07/31/23 15:43 Urine Catheter - Catheter Legionella Antigen - Final 07/31/23 15:43 Urine Catheter - Catheter Streptococcus pneumoniae Antigen (M - Final Physical Exam Const alert and no apparent distress Resp normal respiratory effort, no retractions, no use of accessory muscles and clear to auscultation bilaterally Cardio regular rate, regular rhythm, S1 normal heart sound and S2 normal heart sound GI normal to inspection, nondistended, normoactive bowel sounds and soft to palpation Extremity normal to inspection Skin Skin Narrative: lymphedema LE. No surrounding erythema. Neuro Sensorium / Orientation: awake and alert Assessment & Plan Assessment/Plan (1) Cellulitis of right lower extremity: (2) Sepsis: QUALIFIERS: Sepsis acute organ dysfunction status: with acute organ dysfunction Sepsis type: sepsis due to unspecified organism Severe sepsis acute organ dysfunction type: encephalopathy Severe sepsis shock status: with septic shock Qualified Code(s): A41.9 - Sepsis, unspecified organism; R65.21 - Severe sepsis with septic shock; G93.41 - Metabolic encephalopathy (3) Metabolic encephalopathy: PLAN: Plan Septic shock * 2/2 RLE cellulitis. Doubt pneumonia. * resolved. Now off levophed. * Cx negative RLE cellulitis * On IV vancomycin and Zosyn. Switched to PO doxycycline. * Blood culture showed no growth after 48 hours and urine culture shows no growth. * Now on oral doxycycline Elevated D-dimer: * D-dimer was 1.42. * Low suspicion of PE. Chronic conditions: * Chronic dementia and Normal pressure hydrocephalus. S/p EM PHYSICIAN shunt. * Benign essential hypertension: BP meds on hold due to hypotension. Resume BP meds * Hyperlipidemia: On statin * CAD s/p CABD echo showed EF of 60% with stage 2 diastolic dysfunction and no regional wall motion abnormalities, moderately elevated pulmonary pressure of 62mmHg. On aspirin and statin * History of esophagitis, s/p right hip replacement * Morbid obesity: BMI is 42.7. Complicates acute care, expected recovery and prognosis. DVT prophylaxis: on lovenox Disposition: awaiting placement DW pt's . Charges/Coding Visit Charges Inpatient E&M: 28362 Subs Hosp L2
--- NOTE | 2023-08-05 09:07 | CASEMGMT ---
Discharge Planning Updates sent to [facility] via [facility]. Madeline Jaeger, Discharge Planning Asst.
[2023-08-05] MEDS: Carvedilol 6.25 MG Tablet PO ×2 (10:15→21:17)
[2023-08-05] MEDS: Aspirin E.C. 81 MG Tablet PO (10:15)
[2023-08-05] MEDS: Lactobacillis Acidophilus 2 CAP PO ×2 (10:15→21:17)
[2023-08-05] MEDS: Ascorbic Acid 500 MG Tablet 1000 MG PO ×2 (10:15→17:24)
[2023-08-05] MEDS: Oxybutynin 5 MG Tablet PO (10:15)
[2023-08-05] MEDS: Doxycycline 100 MG CAPSULE PO ×2 (10:16→21:18)
[2023-08-05] MEDS: Enoxaparin 150 MG/ML Syringe 130 MG SC ×2 (10:16→21:17)
[2023-08-05] MEDS: Furosemide 40 MG/4 ML Vial IV ×2 (10:16→17:24)
[2023-08-05] MEDS: Zinc Sulfate 50 mg zinc (220 mg) ORAL capsule PO (10:17)
[2023-08-05] MEDS: Carbidopa/Levodopa 25/100 Tablet PO ×2 (10:18→17:32)
--- NOTE | 2023-08-05 14:07 | CHAPLAIN ---
Type of Pastoral Visit _x__ Initial Visit ___ Follow-up Visit ___ On-call Visit ___ General Patient Visit ___ Spiritual Assessment ___ Family Conference ___ Bereavement ___ Rapid Response ___ Code Blue ___ Other (describe below) Pastoral Care Referral From _x__ Patient ___ Family ___ Nurse ___ Physician ___ Metal Door Assembler ___ Carpet Floor Layer Apprentice ___ Other (describe below) Sacrament/Intervention _x__ Active listening ___ Anointing ___ Mandaen ___ Bereavement ___ Communion _x__ Eloisa exploration ___ ___ Life review _x__ Prayer ___ Reconciliation ___ Sacrament of Sick _x__ Supportive presence ___ Wedding ___ Other (describe below) Pastoral Comments spouse welcomes this varitypist as spouse stands in the doorway; pt is awake but nods off during visit as spouse describes that he has not been able to sleep; both are hoping for a soon discharge so pt can start rehab at [facility]; both are Mandaen restorationism members and welcome spiritual care support and prayer
[2023-08-05] MEDS: Atorvastatin Calcium 80 MG Tablet PO (21:18)
[2023-08-05] MEDS: Gabapentin 800 MG Tablet PO (21:22)
[2023-08-06 03:22] VITALS: BMI 43.0
[2023-08-06 04:23] VITALS: BP 131/76; PULSE 72; RESP 16; TEMP 36.6; O2SAT 88
[2023-08-06 04:25] VITALS: O2SAT 95
[2023-08-06] MEDS: Carbidopa/Levodopa 25/100 Tablet PO ×2 (06:33→11:23)
[2023-08-06 08:14] LABS: Absolute Lymphocyte Count 1.82 X10^3/uL (0.83-4.51); Basophil# 0.05 X10^3/uL; Basophil% 0.4 % (0-1); Eosinophil# 0.28 X10^3/uL; Eosinophils% 2.2 % (0-5); Hematocrit 41.5 % (40-54); Hemoglobin 13.1 g/dL (13.0-16.5); Lymphocyte # 1.82 X10^3/ul (0.83-4.51); Lymphocyte % 14.5 % (19-41); Mean Corp Hgb Conc 31.6 g/dL (32-36); Mean Corpuscular Hgb 26.7 pg (27.0-32.0); Mean Corpuscular Volume 84.7 fL (80-94); Mean Platelet Vol. 8.9 fl (6.2-12.0); Monocyte# 1.16 X10^3/uL; Monocyte% 9.3 % (0-10); NRBC Flagged by Analyzer 0 % (0-5); Neutrophil # 9.03 X10^3/uL (2.7-7.7); Platelet Count 283 K/mm3 (150-450); RBC Distribution Width CV 15.9 % (11.6-14.6); White Blood Count 12.5 K/mm3 (4.4-11.0)
--- NOTE | 2023-08-06 08:41 | PN.HOSP_ITS ---
Reason for Visit Reason for Visit: Diagnoses Sepsis, unspecified organism (07/31/23) Unspecified dementia, unspecified severity, without behavioral disturbance, psychotic disturbance, mood disturbance, and anxiety (07/31/23) (Idiopathic) normal pressure hydrocephalus (07/31/23) Metabolic encephalopathy (07/31/23) Ischemic cardiomyopathy (07/31/23) Other ventricular tachycardia (07/31/23) Hypotension, unspecified (07/31/23) Cellulitis of right lower limb (07/31/23) Severe sepsis with septic shock (07/31/23) Presence of aortocoronary bypass graft (07/31/23) Presence of cerebrospinal fluid drainage device (07/31/23) Subjective Subjective No events, feels well. Objective Data Objective Data Vital Signs: Vital Signs Temp Pulse Resp BP Pulse Ox O2 Del Method O2 Flow Rate 36.6 C 72 16 131/76 H 95 Nasal Cannula 2 08/06/23 04:23 08/06/23 04:23 08/06/23 04:23 08/06/23 04:23 08/06/23 04:25 08/06/23 05:20 08/06/23 05:20 Oxygen Flow Rate (L/min) 2 Oxygen Delivery Method Nasal Cannula Weight: 128.3 kg Body Mass Index (BMI) 43.0 Intake & Output: Intake and Output for Last 24 Hours 08/04/23 08/05/23 08/06/23 23:59 23:59 23:59 Intake Total 2555 / 2555 100 / 100 Output Total 6100 / 6100 1325 / 2725 1999 Balance -3545 / -3545 -1325 / -2725 -1900 / -1900 Lab / Micro Data 08/06/23 08:00 08/06/23 08:00 Labs: Laboratory Results - last 24 hr 08/06/23 08:00: WBC 12.5 H, RBC 4.90, Hgb 13.1, Hct 41.5, MCV 84.7, MCH 26.7 L, MCHC 31.6 L, RDW Std Deviation 49.0 H, RDW Coeff of Pema 15.9 H, Plt Count 283, MPV 8.9, Immature Gran % (Auto) 1.600 H, Neut % (Auto) 72.0 H, Lymph % (Auto) 14.5 L, [place] % (Auto) 9.3, Eos % (Auto) 2.2, Baso % (Auto) 0.4, Absolute Neuts (auto) 9.0 H, Absolute Lymphs (auto) 1.82, Nucleated RBC % 0 Micro: Microbiology 07/31/23 13:56 Blood Culture (Wb) - Anticubital Right Blood Culture - Final No growth in 5 days. 07/31/23 13:56 Blood Culture (Wb) - Right Wrist Blood Culture - Final No growth in 5 days. 07/31/23 15:43 Urine, Clean Catch Urine Culture - Final Culture exhibits no growth. 07/31/23 15:43 Urine Catheter - Catheter Legionella Antigen - Final 07/31/23 15:43 Urine Catheter - Catheter Streptococcus pneumoniae Antigen (M - Final Physical Exam Const alert and no apparent distress HEENT head/scalp atraumatic and moist oral mucous membranes Resp normal respiratory effort and no retractions Extremity Extremity Narrative: decreased LE edema. Neuro oriented x3, CN's II-XII intact bilaterally, moves all extremities and no focal motor deficits Assessment & Plan Assessment/Plan (1) Cellulitis of right lower extremity: (2) Sepsis: QUALIFIERS: Sepsis acute organ dysfunction status: with acute organ dysfunction Sepsis type: sepsis due to unspecified organism Severe sepsis acute organ dysfunction type: encephalopathy Severe sepsis shock status: with septic shock Qualified Code(s): A41.9 - Sepsis, unspecified organism; R65.21 - Severe sepsis with septic shock; G93.41 - Metabolic encephalopathy (3) Metabolic encephalopathy: PLAN: Plan Septic shock * 2/2 RLE cellulitis. Doubt pneumonia. * resolved. Now off levophed. * Cx negative RLE cellulitis * On IV vancomycin and Zosyn. Switched to PO doxycycline. * Blood culture showed no growth after 48 hours and urine culture shows no growth. * Now on oral doxycycline Elevated D-dimer: * D-dimer was 1.42. * Low suspicion of PE. LE edema/lymphedema * improving * change furosemide to PO Chronic conditions: * Chronic dementia and Normal pressure hydrocephalus. S/p ANDROID PROGRAMMER shunt. * Benign essential hypertension: BP meds on hold due to hypotension. Resume BP meds * Hyperlipidemia: On statin * CAD s/p CABD echo showed EF of 60% with stage 2 diastolic dysfunction and no regional wall motion abnormalities, moderately elevated pulmonary pressure of 62mmHg. On aspirin and statin * History of esophagitis, s/p right hip replacement * Morbid obesity: BMI is 42.7. Complicates acute care, expected recovery and prognosis. DVT prophylaxis: on lovenox Disposition: awaiting placement Charges/Coding Visit Charges Inpatient E&M: 84594 Subs Hosp L2
[2023-08-06 08:46] LABS: ALB/GLOB Ratio 0.8 RATIO (0.9-2.4); AST(SGOT) 41 U/L (15-37); Alanine Aminotransfer ALT/SGPT 12 U/L (16-61); Albumin, Serum 2.7 g/dL (3.2-5.0); Alkaline Phosphatase 103 U/L (45-117); Anion Gap 1 (5-15); BUN 14 mg/dL (7-18); BUN/Creat Ratio 18.5 RATIO (10-20); Calcium,Total 8.8 mg/dL (8.5-10.1); Chloride 103 mmol/L (98-107); Creatinine, Serum 0.76 mg/dL (0.70-1.30); EST Glomerular Filtration Rate 106 mL/min (>60); Est Glom Filt Rate - Afr Amer 129 mL/min (>60); Estimated Creatinine Clearance 102.62 ml/min; Globulin 3.4 g/dL (2.2-4.2); Glucose 106 mg/dL (74-106); Potassium 3.7 mmol/L (3.5-5.1); Protein, Total 6.1 g/dL (6.4-8.2); Sodium Level 140 mmol/L (136-145)
[2023-08-06 09:21] VITALS: BP 133/53; PULSE 78; RESP 16; TEMP 36.2; O2SAT 93
[2023-08-06] MEDS: Lactobacillis Acidophilus 2 CAP PO (09:26)
[2023-08-06] MEDS: Ascorbic Acid 500 MG Tablet 1000 MG PO (09:26)
[2023-08-06] MEDS: Aspirin E.C. 81 MG Tablet PO (09:26)
[2023-08-06] MEDS: Doxycycline 100 MG CAPSULE PO (09:27)
[2023-08-06] MEDS: Enoxaparin 150 MG/ML Syringe 130 MG SC (09:27)
[2023-08-06] MEDS: Carvedilol 6.25 MG Tablet PO (09:27)
[2023-08-06] MEDS: Oxybutynin 5 MG Tablet PO (09:27)
[2023-08-06] MEDS: Zinc Sulfate 50 mg zinc (220 mg) ORAL capsule PO (09:27)
[2023-08-06] MEDS: Furosemide 40 MG/4 ML Vial IV (09:27)
[2023-08-06] MEDS: 0.9% Saline Lock 10 ML Syringe IV (09:29)
--- NOTE | 2023-08-06 12:58 | CASEMGMT ---
Discharge Planning [facility] has obtained auth. Physician notified. Madeline Jaeger, Discharge Planning Asst.
--- NOTE | 2023-08-06 13:58 | TREXTCAR_ITS ---
Diet Diet Order/Speech Therapy: 08/01/23 11:48 Diet: Cardiac - Heart Healthy Is pt able to select menu?: Yes Wound(s) left knee: Wound Type: scattered scabs left dexter: Wound Type: scab Therapies Weight Bearing: Full weight bearing Physical Therapy: Eval and Treat Occupational Therapy: Eval and Treat Problem/Diagnosis (1) Cellulitis of right lower extremity: Status: Acute Code(s): L03.115 - Cellulitis of right lower limb (2) Sepsis: Status: Acute Code(s): A41.9 - Sepsis, unspecified organism (3) Metabolic encephalopathy: Status: Acute Code(s): G93.41 - Metabolic encephalopathy Plan Septic shock * 2/2 RLE cellulitis. Doubt pneumonia. * resolved. Now off levophed. * Cx negative RLE cellulitis * On IV vancomycin and Zosyn. Switched to PO doxycycline. * Blood culture showed no growth after 48 hours and urine culture shows no growth. * Now on oral doxycycline Elevated D-dimer: * D-dimer was 1.42. * Low suspicion of PE. LE edema/lymphedema * improving * change furosemide to PO Chronic conditions: * Chronic dementia and Normal pressure hydrocephalus. S/p ACADEMIC INTERVENTIONIST shunt. * Benign essential hypertension: BP meds on hold due to hypotension. Resume BP meds * Hyperlipidemia: On statin * CAD s/p CABD echo showed EF of 60% with stage 2 diastolic dysfunction and no regional wall motion abnormalities, moderately elevated pulmonary pressure of 62mmHg. On aspirin and statin * History of esophagitis, s/p right hip replacement * Morbid obesity: BMI is 42.7. Complicates acute care, expected recovery and prognosis. DVT prophylaxis: on lovenox Disposition: awaiting placement Allergies/Procedures Done in Hospital Allergies lisinopril Adverse Reaction (Verified 07/31/23 13:03) Other Procedures: 2-D Echocardiogram and PICC line placement Type of Care/Length of Stay Estimated LOS: Convalescent Care Less Than 30 days Type of Care Needed: Skilled Rehab Potential: Good Prognosis: Good Additional Orders/Day of Discharge Day of Discharge: 08/06/23 Dietary and Speech Recommendations Dietitian Recommendations/Changes: will adjust diet to cardiac Discharge Plan Admission Admit Date/Time: 07/31/23 16:39 Primary Reason for Your Visit: septic shock Attending Provider: Jeb Chappell Primary Care Provider: Darnell Bryant Consulting Providers: Duran Lucio; Marques Man; Esha Ely Discharge Orders/Prescriptions Prescriptions: New acetaminophen 325 mg Tablet 1,000 mg PO Q6 PRN (Reason: Pain 1-510 Or Fever) Qty: 0 0RF carvedilol 6.25 mg Tablet 6.25 mg PO BID Qty: 0 0RF doxycycline monohydrate 100 mg Capsule 100 mg PO BID Qty: 3 0RF furosemide 40 mg Tablet 40 mg PO BIDLX Qty: 0 0RF Deep Sea Nasal 0.65 % Aerosol,[place] 2 spray NASAL BID PRN PRN (Reason: NASAL DRYNESS) Qty: 0 0RF Continued gabapentin 800 mg tablet 800 mg PO QHS 30 Days Qty: 60 Patient Comments: take 1 - 2 Tablets by mouth every evening about 90 min prior to bedtime. nitroglycerin [Nitrostat] 0.4 mg tablet, sublingual 0.4 mg SUBLINGUAL Q5M PRN (Reason: chest pain) Qty: 25 3RF oxybutynin chloride 5 mg tablet 5 mg PO DAILY aspirin [Adult Aspirin Regimen] 81 mg tablet,delayed release (DR/EC) 81 mg PO QDAY Qty: 90 3RF tramadol 50 mg tablet 50 mg PO TID PRN (Reason: pain) ropinirole 3 MG tablet 3 mg PO 4X/DAY PRN (Reason: restless leg(s)) cyclobenzaprine 10 mg tablet 10 mg PO BID PRN (Reason: Bladder Spasm) carbidopa-levodopa 1 TABLET tablet 1 - 2 tab PO QHS pramipexole [Mirapex ER] 1.5 mg tablet extended release 24 hr 1.5 mg PO QHS trospium 20 mg tablet 20 mg PO BID Rx Instructions: administer on an empty stomach atorvastatin 80 mg tablet See Rx Instructions .ROUTE .COMPLEX Qty: 90 3RF Dose Instruction: TAKE 1 TABLET AT BEDTIME Rx Instructions: TAKE 1 TABLET AT BEDTIME Discontinued furosemide 40 mg tablet 40 mg PO .COMPLEX Hold Instructions: HOLDING, NOT STAYING HYDRATED Rx Instructions: 40 mg PO 2 tabs in the am and 1 in the pm; carvedilol 12.5 mg tablet 25 mg PO BID Rx Instructions: must administer with a meal/food ibuprofen 600 MG tablet 600 mg PO PRN PRN (Reason: Pain) isosorbide mononitrate 20 mg tablet See Rx Instructions .ROUTE .COMPLEX Qty: 90 3RF Dose Instruction: TAKE 1 TABLET DAILY Rx Instructions: TAKE 1 TABLET DAILY losartan 50 mg tablet See Rx Instructions .ROUTE .COMPLEX Qty: 90 3RF Dose Instruction: take 1 tablet by mouth daily Rx Instructions: take 1 tablet by mouth daily Referrals / Follow Up: [facility] [Provider Group] - Within 1 Month Darnell Bryant MD [Primary Care Provider] - Within 2 Weeks Disposition Disposition (needs filled in before D/C Order can be placed): Care Home Facility (2) Sepsis Qualifiers: Sepsis type: sepsis due to unspecified organism Sepsis acute organ dysfunction status: with acute organ dysfunction Severe sepsis acute organ dysfunction type: encephalopathy Severe sepsis shock status: with septic shock Qualified Code(s): A41.9 - Sepsis, unspecified organism; R65.21 - Severe sepsis with septic shock; G93.41 - Metabolic encephalopathy
--- NOTE | 2023-08-06 14:10 | DS.PCM_ITS ---
Providers Date of Admission: 07/31/23 Primary Care Physician: Dr. Darnell Bryant MD Consultations 07/31/23 17:43 Consult: Plant Utilities Engineer / Pulmonary Medicine Routine Consulting Provider: Intensivists/Pulmonary Med Reason for Consult: Sepsis EMERGENT Consult: No Notified: Yes Date Notified: 07/31/23 Time Notified: 16:43 Method of Notification: Text 08/03/23 15:53 Consult: Cardiology Routine Consulting Provider: Marques Man Reason for Consult: arrythmia EMERGENT Consult: No Notified: Yes Date Notified: 08/03/23 Time Notified: 15:53 Method of Notification: Text Comments:: Dr Ely said she will notify jaison Reason For Visit: SEPSIS WITH BILATERAL LOWER EXTREMITY CELLULITIS Diagnosis Discharge Diagnosis (1) Cellulitis of right lower extremity: Status: Acute Code(s): L03.115 - Cellulitis of right lower limb (2) Sepsis: Status: Acute Code(s): A41.9 - Sepsis, unspecified organism Qualifiers: Sepsis type: sepsis due to unspecified organism Sepsis acute organ dysfunction status: with acute organ dysfunction Severe sepsis acute organ dysfunction type: encephalopathy Severe sepsis shock status: with septic shock Qualified Code(s): A41.9 - Sepsis, unspecified organism; R65.21 - Severe sepsis with septic shock; G93.41 - Metabolic encephalopathy (3) Metabolic encephalopathy: Status: Acute Code(s): G93.41 - Metabolic encephalopathy Plan Septic shock * 2/2 RLE cellulitis. Doubt pneumonia. * resolved. Now off levophed. * Cx negative RLE cellulitis * On IV vancomycin and Zosyn. Switched to PO doxycycline. * Blood culture showed no growth after 48 hours and urine culture shows no growth. * Now on oral doxycycline Elevated D-dimer: * D-dimer was 1.42. * Low suspicion of PE. LE edema/lymphedema * improving * change furosemide to PO Chronic conditions: * Chronic dementia and Normal pressure hydrocephalus. S/p MILLING MACHINIST shunt. * Benign essential hypertension: BP meds on hold due to hypotension. Resume BP meds * Hyperlipidemia: On statin * CAD s/p CABD echo showed EF of 60% with stage 2 diastolic dysfunction and no regional wall motion abnormalities, moderately elevated pulmonary pressure of 62mmHg. On aspirin and statin * History of esophagitis, s/p right hip replacement * Morbid obesity: BMI is 42.7. Complicates acute care, expected recovery and prognosis. DVT prophylaxis: on lovenox Disposition: awaiting placement Medications at Discharge Home Medications ropinirole 3 mg tablet 3 mg PO 4X/DAY PRN restless leg(s) 08/10/15 carbidopa 25 mg-levodopa 100 mg tablet 1 - 2 tab PO QHS TREMORS 10/10/16 gabapentin 800 mg tablet 800 mg PO QHS PAIN 30 days ##60 06/19/17 cyclobenzaprine 10 mg tablet 10 mg PO BID PRN Bladder Spasm 07/14/19 nitroglycerin 0.4 mg sublingual tablet (Nitrostat) 0.4 mg sublingual Q5M PRN chest pain #25 tabs 07/27/20 aspirin 81 mg tablet,delayed release (Adult Aspirin Regimen) 81 mg PO QDAY heart health #90 tabs 01/25/23 oxybutynin chloride 5 mg tablet 5 mg PO DAILY legs 01/25/23 atorvastatin 80 mg tablet See Rx Instructions .Route .COMPLEX cholesterol #90 tabs 03/22/23 pramipexole 1.5 mg tablet,extended release 24 hr (Mirapex ER) 1.5 mg PO QHS RESTLESS LEGS 07/31/23 tramadol 50 mg tablet 50 mg PO TID PRN pain 07/31/23 trospium 20 mg tablet 20 mg PO BID BLADDER 07/31/23 acetaminophen 325 mg tablet 1,000 mg (3.0769 x 325 mg) PO Q6 PRN Pain 1-5/10 Or Fever #0 tabs 08/06/23 carvedilol 6.25 mg tablet 6.25 mg PO BID #0 tabs 08/06/23 doxycycline monohydrate 100 mg capsule 100 mg PO BID #3 caps 08/06/23 furosemide 40 mg tablet 40 mg PO BIDLX #0 tabs 08/06/23 sodium chloride 0.65 % nasal spray aerosol ([place] Nasal) 2 spray NASAL BID PRN PRN NASAL DRYNESS #0 mL 08/06/23 Hospital Course Procedures None Summary of Care Provided Minutes Spent on Discharge: 35 Hospital Course: Patient presents with septic shock secondary to right lower extremity cellulitis. Patient was on vancomycin and pip-tazo. Subsequent changed over to doxycycline. Patient had blood cultures that were negative. Patient did require Levophed for short period time since resolved. Patient did transfer to the progressive care unit where he is remained stable. His cellulitis is since resolved. Patient was treated with IV furosemide while he was here to help with the diuresis of his anasarca. That is improved. Patient continue with furosemide twice daily 40 mg. Patient had been on losartan as well as isosorbide. Those will continue to be held. Blood pressure has remained stable. He has been resumed on carvedilol but at a reduced dose. I would con tinue to hold the losartan because he does have a noted allergy to lisinopril and there can be cross-reactivity related with ARB's. Weight / BMI Weight Weight: 128.3 kg Body Mass Index (BMI) 43.0 ABG / Lab / Microbiology Data 08/06/23 08:00 08/06/23 08:00 Laboratory: Laboratory Results - last 24 hr 08/06/23 08:00: WBC 12.5 H, RBC 4.90, Hgb 13.1, Hct 41.5, MCV 84.7, MCH 26.7 L, MCHC 31.6 L, RDW Std Deviation 49.0 H, RDW Coeff of Pema 15.9 H, Plt Count 283, MPV 8.9, Immature Gran % (Auto) 1.600 H, Neut % (Auto) 72.0 H, Lymph % (Auto) 14.5 L, [place] % (Auto) 9.3, Eos % (Auto) 2.2, Baso % (Auto) 0.4, Absolute Neuts (auto) 9.0 H, Absolute Lymphs (auto) 1.82, Nucleated RBC % 0, Sodium 140, Potassium 3.7, Chloride 103, Carbon Dioxide 36.0 H, Anion Gap 1 L, BUN 14, Creatinine 0.76, Estim Creat Clear Calc 102.62, Est GFR (MDRD) Af Amer 129, Est GFR (MDRD) Non-Af 106, BUN/Creatinine Ratio 18.5, Glucose 106, Calcium 8.8, Total Bilirubin 0.50, AST 41 H, ALT 12 L, Alkaline Phosphatase 103, Total Protein 6.1 L, Albumin 2.7 L, Globulin 3.4, Albumin/Globulin Ratio 0.8 L Microbiology: Microbiology 07/31/23 13:56 Blood Culture (Wb) - Anticubital Right Blood Culture - Final No growth in 5 days. 07/31/23 13:56 Blood Culture (Wb) - Right Wrist Blood Culture - Final No growth in 5 days. 07/31/23 15:43 Urine, Clean Catch Urine Culture - Final Culture exhibits no growth. 07/31/23 15:43 Urine Catheter - Catheter Legionella Antigen - Final 07/31/23 15:43 Urine Catheter - Catheter Streptococcus pneumoniae Antigen (M - Final D/C Instructions Discharge Diet: Low fat / Low cholesterol Meaningful Use Info Meaningful Use Meaningful Use Diagnoses (Choose all that apply): CHF CHF NAHOMI/ARB ordered at discharge?: No Reason NAHOMI/ARB not ordered?: Allergy Documented LVEF (%): 60 Ischemic Stroke Statin Dosing Therapy Reference: STATIN DOSE THERAPY REFERENCE: * Patients > 75 years receive moderate or high dose statin therapy. * Patients 75 years or YOUNGER should receive HIGH intensity statin dose unless contraindicated. You will be required to document reason for non-treatment if statin daily dose does not meet guidelines. HIGH DOSE STATIN THERAPY DAILY Atorvastatin > than or = to 40 mg Rosuvastatin > than or = to 20 mg Amlodipine + Atorvastatin > than or = to 2.5/40 mg Ezetimibe + Simvastatin 10/80 mg Simvastatin 80mg Discharge Plan Admission Admit Date/Time: 07/31/23 16:39 Primary Reason for Your Visit: septic shock Attending Provider: Jeb Chappell Primary Care Provider: Darnell Bryant Consulting Providers: Duran Lucio; Marques Man; Esha Ely Discharge Orders/Prescriptions Prescriptions: New acetaminophen 325 mg Tablet 1,000 mg PO Q6 PRN (Reason: Pain 1-5/10 Or Fever) Qty: 0 0RF carvedilol 6.25 mg Tablet 6.25 mg PO BID Qty: 0 0RF doxycycline monohydrate 100 mg Capsule 100 mg PO BID Qty: 3 0RF furosemide 40 mg Tablet 40 mg PO BIDLX Qty: 0 0RF Deep [place] Nasal 0.65 % Aerosol,[place] 2 spray NASAL BID PRN PRN (Reason: NASAL DRYNESS) Qty: 0 0RF Continued gabapentin 800 mg tablet 800 mg PO QHS 30 Days Qty: 60 Patient Comments: take 1 - 2 Tablets by mouth every evening about 90 min prior to bedtime. nitroglycerin [Nitrostat] 0.4 mg tablet, sublingual 0.4 mg SUBLINGUAL Q5M PRN (Reason: chest pain) Qty: 25 3RF oxybutynin chloride 5 mg tablet 5 mg PO DAILY aspirin [Adult Aspirin Regimen] 81 mg tablet,delayed release (DR/EC) 81 mg PO QDAY Qty: 90 3RF tramadol 50 mg tablet 50 mg PO TID PRN (Reason: pain) ropinirole 3 MG tablet 3 mg PO 4X/DAY PRN (Reason: restless leg(s)) cyclobenzaprine 10 mg tablet 10 mg PO BID PRN (Reason: Bladder Spasm) carbidopa-levodopa 1 TABLET tablet 1 - 2 tab PO QHS pramipexole [Mirapex ER] 1.5 mg tablet extended release 24 hr 1.5 mg PO QHS trospium 20 mg tablet 20 mg PO BID Rx Instructions: administer on an empty stomach atorvastatin 80 mg tablet See Rx Instructions .ROUTE .COMPLEX Qty: 90 3RF Dose Instruction: TAKE 1 TABLET AT BEDTIME Rx Instructions: TAKE 1 TABLET AT BEDTIME Discontinued furosemide 40 mg tablet 40 mg PO .COMPLEX Hold Instructions: HOLDING, NOT STAYING HYDRATED Rx Instructions: 40 mg PO 2 tabs in the am and 1 in the pm; carvedilol 12.5 mg tablet 25 mg PO BID Rx Instructions: must administer with a meal/food ibuprofen 600 MG tablet 600 mg PO PRN PRN (Reason: Pain) isosorbide mononitrate 20 mg tablet See Rx Instructions .ROUTE .COMPLEX Qty: 90 3RF Dose Instruction: TAKE 1 TABLET DAILY Rx Instructions: TAKE 1 TABLET DAILY losartan 50 mg tablet See Rx Instructions .ROUTE .COMPLEX Qty: 90 3RF Dose Instruction: take 1 tablet by mouth daily Rx Instructions: take 1 tablet by mouth daily Referrals / Follow Up: [facility] [Provider Group] - Within 1 Month Darnell Bryant MD [Primary Care Provider] - Within 2 Weeks Disposition Disposition (needs filled in before D/C Order can be placed): Shelter Facility Charges/Coding Visit Charges Inpatient E&M: 47533 Disch Hosp >30min
--- NOTE | 2023-08-06 14:17 | PHA.DC_ITS ---
Pharmacy [place] Med Reconciliation Pharmacy Service has performed discharge medication reconciliation for this patient. The patient's discharge medication list was reviewed for discrepancies and discrepancies were resolved. Medications at Discharge Home Medications ropinirole 3 mg tablet 3 mg PO 4X/DAY PRN restless leg(s) 08/10/15 carbidopa 25 mg-levodopa 100 mg tablet 1 - 2 tab PO QHS TREMORS 10/10/16 gabapentin 800 mg tablet 800 mg PO QHS PAIN 30 days ##60 06/19/17 cyclobenzaprine 10 mg tablet 10 mg PO BID PRN Bladder Spasm 07/14/19 nitroglycerin 0.4 mg sublingual tablet (Nitrostat) 0.4 mg sublingual Q5M PRN chest pain #25 tabs 07/27/20 aspirin 81 mg tablet,delayed release (Adult Aspirin Regimen) 81 mg PO QDAY heart health #90 tabs 01/25/23 oxybutynin chloride 5 mg tablet 5 mg PO DAILY legs 01/25/23 atorvastatin 80 mg tablet See Rx Instructions .Route .COMPLEX cholesterol #90 t abs 03/22/23 pramipexole 1.5 mg tablet,extended release 24 hr (Mirapex ER) 1.5 mg PO QHS RESTLESS LEGS 07/31/23 tramadol 50 mg tablet 50 mg PO TID PRN pain 07/31/23 trospium 20 mg tablet 20 mg PO BID BLADDER 07/31/23 acetaminophen 325 mg tablet 1,000 mg (3.0769 x 325 mg) PO Q6 PRN Pain 1-5/10 Or Fever #0 tabs 08/06/23 carvedilol 6.25 mg tablet 6.25 mg PO BID #0 tabs 08/06/23 doxycycline monohydrate 100 mg capsule 100 mg PO BID #3 caps 08/06/23 furosemide 40 mg tablet 40 mg PO BIDLX #0 tabs 08/06/23 sodium chloride 0.65 % nasal spray aerosol (Deep Sea Nasal) 2 spray NASAL BID PRN PRN NASAL DRYNESS #0 mL 08/06/23
--- NOTE | 2023-08-06 14:34 | CASEMGMT ---
Discharge Planning Discharge orders, signed med list, covid results, and transport time sent to [facility] via [facility]. Physicians will transport patient by cot at 3:30p. Nursing, SW, patient, and his updated. Madeline Jaeger, Discharge Planning Asst.
[2023-08-06 14:39] VITALS: BP 133/57; PULSE 97; RESP 18; TEMP 36.2; O2SAT 97
--- NOTE | 2023-08-06 14:40 | CASEMGMT ---
Patient was approved and is ready for discharge to [facility]. SW completed a 7000 in [facility] system. Physicians will transport patient. Plan: d/c to [facility] under skilled level of care on a convalescent stay. Physicians will transport patient via cot. Cristina JEAN
--- NOTE | 2023-08-06 16:12 | NURSING ---
[id number] Report called to nurse Zabrina @ [facility]
== END 2023-08-06 16:19 | disposition skilled nursing facility (03) | DRG 871 ==
LOC: ED 16:32 → ICU 17:01 → PCU 08-02 12:58
PROVIDERS: Family Medicine; Student in an Organized Health Care Education/Training Program; Admitting Provider Internal Medicine; Emergency Provider Emergency Medicine; PCP Family Medicine
DX: A41.9 Sepsis, unspecified organism (principal); G93.41 Metabolic encephalopathy; R65.21 Severe sepsis with septic shock; N17.9 Acute kidney failure, unspecified; Z68.41 Body mass index [BMI] 40.0-44.9, adult; G91.2 (Idiopathic) normal pressure hydrocephalus; I47.29 Other ventricular tachycardia; L03.115 Cellulitis of right lower limb; L03.116 Cellulitis of left lower limb; F03.90 Unspecified dementia, unspecified severity, without behavioral disturbance, psychotic disturbance, mood disturbance, and anxiety; E66.01 Morbid (severe) obesity due to excess calories; I10 Essential (primary) hypertension; I25.10 Atherosclerotic heart disease of native coronary artery without angina pectoris; I25.5 Ischemic cardiomyopathy; I89.0 Lymphedema, not elsewhere classified; I25.2 Old myocardial infarction; E78.5 Hyperlipidemia, unspecified; Z98.2 Presence of cerebrospinal fluid drainage device; Z82.3 Family history of stroke; Z79.1 Long term (current) use of non-steroidal anti-inflammatories (NSAID); Z95.1 Presence of aortocoronary bypass graft; Z96.641 Presence of right artificial hip joint; R79.89 Other specified abnormal findings of blood chemistry
CPT/HCPCS: 36415; 36569; 70450; 71045; 80048; 80053; 80202; 81001; 83605; 83735; 83880; 84100; 84134; 84484; 85025; 85379; 85610; 85730; 87040; 87086; 87449; 87811; 93005; 93306; 93970; 94762; 97110; 97162; 97166; 97530; 97535; 97802; 99285; J2997; J7030; J7040; J7050; P9047; P9612; Q9957; A4216; C8929; J0295; J1940; J2405

== ENCOUNTER 2024-03-26 10:15 | Outpatient (RCR) | payer MEDICARE, SELFPAY ==
[2024-03-05 10:08] VITALS: BP 143/89; PULSE 78; RESP 18; TEMP 35.6; BMI 40.1
--- NOTE | 2024-03-05 12:40 | PCM.WC.HP ---
History of Present Illness Date of Service: 03/05/24 Chief Complaint: Nonhealing bilateral buttock ulcers History of Wound: Mr. Martins is a 79-year-old who presents to the wound center due to nonhealing bilateral buttock ulcers. His was present with him during his visit. She states that he has had recurrent ulcerations for years but current ulcers started 6 months ago. She has tried some home remedy including ointments and hydrocolloid dressing however following healing, re opening happens. He is very sedentary and sits/sleeps in his chair. She states that they have tried some offloading foams and also hospital bed however, he did not tolerate the hospital bed and so sleeps in the chair. No known history of diabetes or tobacco abuse. Appetite is said to be good. Feels well otherwise. [facility] Medical History (Updated 03/05/24 @ 12:[address] Ayaan Gallagher MD) Physical debility Stage II pressure ulcer of right buttock Stage II pressure ulcer of left buttock Decubitus skin ulcer Essential hypertension Atherosclerotic heart disease of [place] coronary artery without angina pectoris Ischemic cardiomyopathy NPH (normal pressure hydrocephalus) Chronic dementia Pure hypercholesterolemia Ulcer of left medial lower extremity, limited to breakdown of skin Edema Old myocardial infarction Home Medications ?Medication ?Instructions ?Recorded ?Last Taken ?Type ropinirole 3 mg tablet 3 mg PO 4X/DAY PRN restless leg(s) 08/10/15 02/07/18 05:45 History 3 MG carbidopa 25 mg-levodopa 100 mg 1 - 2 tab PO QHS TREMORS 10/10/16 Unknown History tablet aspirin 81 mg [facility] 01/25/23 Unknown Rx release (Adult Aspirin Regimen) pramipexole 1.5 mg tablet,extended 1.5 mg PO QHS RESTLESS LEGS 07/31/23 Unknown History release 24 hr (Mirapex ER) tramadol 50 mg tablet 50 mg PO TID PRN pain 07/31/23 Unknown History acetaminophen 325 mg tablet 1,000 mg (3.0769 x 325 mg) PO Q6 08/06/23 Unknown Rx PRN Pain 1-5/10 Or Fever #0 tabs cyclobenzaprine 10 mg tablet 10 mg PO TID PRN Bladder Spasm 09/10/23 Unknown History gabapentin 800 mg tablet 800 mg PO TID PAIN 30 days #90 tabs 09/10/23 Unknown History losartan 25 mg tablet 25 mg PO DAILY 09/10/23 Unknown History magnesium oxide 250 mg PO DAILY 09/10/23 Unknown History niacin 500 mg capsule,extended 250 mg PO DAILY 09/10/23 Unknown History release potassium gluconate 595 mg (99 mg) 595 mg PO DAILY 09/10/23 Unknown History tablet fluticasone propionate 50 1 spray intranasal Q12H 09/26/23 Unknown History mcg/actuation nasal spray,suspension furosemide 40 mg tablet (Lasix) 40 mg PO BID #60 tabs 09/26/23 Unknown Rx carvedilol 6.25 mg tablet 6.25 mg PO BID #180 tabs 01/02/24 Unknown Rx atorvastatin 80 mg tablet See Rx Instructions .Route 02/11/24 Unknown Rx .COMPLEX cholesterol #90 tabs trospium 20 mg tablet 20 mg PO BID 03/05/24 Unknown History Allergy/AdvReac Type Severity Reaction Status Date / Time lisinopril AdvReac Other Verified 09/26/23 10:41 Family History Father Colon cancer Mother CVA (cerebral vascular accident) Hypertension Surgical History History of shoulder surgery 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) Social History Smoking Status: Never smoker alcohol intake: never substance use type: does not use caffeine: Yes (1-3 servings per day) Type: coffee what type of physical activity do you participate in: none seatbelt use: always do you feel safe at home: Yes ROS Constitutional Constitutional: Denies excessive sweating, fever(s), headache(s), lethargy or poor appetite Eyes Eyes: Denies bloody eye, change in eye color, change in vision, discharge from eye(s), discongugate gaze or double vision ENT HEENT: Denies dysphagia, ear pain, epistaxis, foreign body in nose, halitosis, headache(s) or hoarseness Cardiovascular Cardiovascular: Reports edema; Denies claudication, clubbing, cold extremities, cyanosis, diaphoresis, dizziness or erythema on extremities Respiratory/Chest Respiratory/Chest: Denies dyspnea, hemoptysis, hoarseness, inability to speak, mouth breathing or nail bed cyanosis Gastrointestinal Gastrointestinal: Denies abdominal pain, anorexia, belching, chewing difficulty, excessive flatus or hematemesis Genitourinary Genitourinary: Denies abdominal discomfort, anuria or flank pain Musculoskeletal Musculoskeletal: Reports limited range of motion; Denies atrophy, difficulty walking, extremity pain, muscle spasms, neck pain or tingling Integumentary Integumentary: Denies changing lesions, dry skin, erythema, hirsutism, jaundice or photosensitivity Neurologic Neurologic: Denies behavior changes, confusion, convulsions, disequilibrium, dizziness or numbness Psychiatric Psychiatric: Denies auditory hallucinations, behavioral changes, change in appetite, panic attacks, paranoia, tactile hallucinations or visual hallucinations Endocrine Endocrinology: Denies cold intolerance, deepening of the voice, excessive sweating, flushing or palpitations Hematologic/Lymphatic Hematologic/Lymphatic: Denies easy bruising or lymphadenopathy Allergic/Immunologic Allergic/Immunologic: Denies lip swelling, throat swelling, tongue swelling, hives or wheezing Vital Signs Vital Signs Vital Signs: 03/05/24 10:08 Temperature 96.1 F L Temperature Source Temporal Pulse Rate 78 Respiratory Rate 18 Blood Pressure 143/89 H Blood Pressure Mean 107 Blood Pressure Source Monitor Blood Pressure Position Sitting Blood Pressure Location Left Arm Weight Weight: 280 lb Body Mass Index (BMI) 40.1 Physical Exam Const alert and no apparent distress General Appearance: cooperative, comfortable and well kempt HEENT normocephalic Neck full ROM General: normal visual inspection Resp normal respiratory effort and normal air movement Effort and Inspection: able to speak in complete sentences Cardio regular rate and regular rhythm GI soft to palpation and non-tender Extremity General Extremity: edema Skin Wounds: wounds noted size Size: See clinical note, bed granulating well, margins well approximated and surrounding erythema, no odor, open and surrounding erythema Neuro CN's II-XII intact bilaterally and moves all extremities Psych mental status grossly normal, thought process normal, cooperative and affect normal Debridement Note Debridement Note Wound debrided: Left posterior thigh Wound Grade/Stage: Stage III Type of Debridement: Excisional debridement Anesthesia Used: 4% Lidocaine Solution Depth: Down to and including healthy tissue and in the subcutaneous layer Percentage of wound debrided: 100 Instrument Used: 5mm curette Tissue Removed: Slough and devitalized tissue Severity: Fat Layer Exposed Amount of bleeding with debridement: Mild Bleeding Controlled with: Pressure Patient tolerated procedure: Patient tolerated procedure well Post-Debridement Measurements and Additional Note: Post-Debridement Measurements/Treatment - Nurse 1 - General Ulcer Assessment Start: 03/05/24 09:56 Freq: Status: Active Protocol: PAULA.LOWCIRILO Activity Type Activity Date Activity User E-sign Co-sign Detail Recorded Client Recorded Date Recorded By Document 03/05/24 10:08 KELLI [id number] 03/05/24 10:18 KELLI 03/05/24 10:08 - Today's Visit Information Type of service Initial Visit Arrival Mode Wheelchair Transfer Assistance Manual Patient Identification Verified (Name & Yes ) Patient Requires Transmission-Based No Precautions Height and Weight Height 5 ft 10 in Weight 280 lb Weight in Pounds 280.0 lbs Weight Measurement Method Stated by Patient Body Mass Index (BMI) 40.1 BMI Classification Obese BSA - Roberta 2.41 Vital Signs Temperature (97.8 F-99.1 F) 96.1 F L Temperature Source Temporal Pulse Rate (60-100) 78 Pulse Location Monitor Respiratory Rate (12-18) 18 Respiratory rate source Observation Blood Pressure (90/60-120/80) 143/89 H Blood Pressure Mean 107 Source Monitor Position Sitting Blood Pressure Location Left Arm History Since Last Visit- (Skip if this is Patient's initial visit) Left Footwear Regular Shoe Right Footwear Regular Shoe Pain Scale: 0-10 Numeric Is Patient Pain Free? Yes Communication Assessment Preferred language Montenegrin Mobile Product Manager Required No Able to Read Yes Able to Write Yes Communication Tools None Right Hearing Abillity Hard of Hearing Left Hearing Abillity Hard of Hearing Visual Assistive Devices Glasses Teaching Assessment Preferences Demonstration Barriers to Learning Knowledge Deficit Readiness To Learn Fair Willingness to Engage in Self Management Low Activies Readiness to Engage in Self Management Low Activities Anxiety Level Anxious Cooperation Cooperative Perception Coherent Interest in Health Problem Uninterested Does Patient Smoke tobacco or other No substances Smoking Status Never smoker Is Patient Diabetic No Functional Assessment Recent Decline in Ability to Perform Ambulation, Bathing,Lower Body Dressing, Toileting, Transferring Culture/Yazidi/Nutritional Assistant Cultural/Yazidi Needs that may affect No Treatment Plan Would you allow our hospital dry pan charger to No meet you for the purpose of spiritual/ emotional support? Nutritional Assistant to contact place of advent No Teaching: Wound Center Skin Care -Person Taught Patient -Teaching Method Discussion, Demonstration -Response to teaching Return Demonstration, Verbalize Understanding WC - Nurse 1 - General Ulcer Measurement Start: 03/05/24 09:56 Freq: Status: Active Protocol: Activity Type Activity Date Activity User E-sign Co-sign Detail Recorded Client Recorded Date Recorded By Document 03/05/24 10:08 KELLI [id number] 03/05/24 10:18 KELLI 03/05/24 10:08 Wound Center Nurse 1 8-right Posterior Thigh -Combined with other wound No -Current Size (cm) - Length 0.5 -Current Size (cm) - Width 0.8 -Current Size (cm) - Depth 0.1 -Total Square Cm 0.40 -Photo Taken Yes -Epithelialization Small 1-33% -Tunneling No -Undermining/Tunneling No -Circular Undermining No -Classification - Thickness Unclassifiable (Eschar Covered ) -Exudate Amt Small -Exudate Type Serosanguineous -Wound Margin Flat & Intact -Granulation Amt None Present (0 %) -Slough/Fibrin Yes -Necrosis Amt Large (67-100%) -Necrotic Tissue Type Adherent Slough -Structure Exposed N/A -Texture (Alyse-wound Skin Appearance) Assessed, Excoriation -Moisture (Alyse-wound Skin Appearance) Assessed,Dry/ Scaly -Color (Alyse-wound Skin Appearance) Assessed -Temperature (Alyse-wound Skin No Abnormality Appearance) (Pt Warm) -Tenderness on Palpation (Alyse-wound No Skin Appearance) -Ulcer Cleansing Soap and Water -Foul Odor after Cleansing No -Anesthetic Used 5% Lidocaine Gel 7-left Posterior Thigh -Combined with other wound No -Current Size (cm) - Length 2.0 -Current Size (cm) - Width 1.5 -Current Size (cm) - Depth 0.1 -Total Square Cm 3.00 -Photo Taken Yes -Epithelialization Small 1-33% -Tunneling No -Undermining/Tunneling No -Circular Undermining No -Classification - Thickness Unclassifiable (Eschar Covered ) -Exudate Amt Small -Exudate Type Serosanguineous -Wound Margin Flat & Intact -Granulation Amt Small (1-33%) -Granulation Quality Red -Necrosis Amt Medium (34-66%) -Necrotic Tissue Type Adherent Slough -Structure Exposed N/A -Texture (Alyse-wound Skin Appearance) Assessed -Moisture (Alyse-wound Skin Appearance) Assessed,Dry/ Scaly -Color (Alyse-wound Skin Appearance) Assessed -Temperature (Alyse-wound Skin No Abnormality Appearance) (Pt Warm) -Tenderness on Palpation (Alyse-wound No Skin Appearance) -Ulcer Cleansing Wound Cleanser -Foul Odor after Cleansing No -Anesthetic Used 5% Lidocaine Gel Lower Limb Edema Present NA WC - Nurse 2 - General Ulcer CM Notes Start: 03/05/24 09:56 Freq: Status: Active Protocol: Activity Type Activity Date Activity User E-sign Co-sign Detail Recorded Client Recorded Date Recorded By Document 03/05/24 10:27 [id number] 03/05/24 10:48 GM 03/05/24 10:27 Wound Center Nurse 2 #10 Right Buttocks -Time 10:43 -Correct Patient Yes -Correct Side, Site, Position Yes -Correct Procedure Yes -Procedure Performed Yes -Type of Procedure Debridement -Clinical Debridement Subcutaneous -Tissue Removed Subcutaneous -Post Debridement (cm) - Length 0.2 -Post Debridement (cm) - Width 0.2 -Post Debridement (cm) - Depth 0.1 -Total Square (Post) (cm) 0.04 -Area of Debridement (cm) - Length 0.2 -Area of Debridement (cm) - Width 0.2 -Total Square (Area) (cm) 0.04 -Tunneling No -Undermining/Tunneling No -Circular Undermining No -Wound/Ulcer Outcome Not Healed -Ulcer Cleansing Rinsed/ Irrigated with Saline -Foul Odor after Cleansing No -Bioengineered Tissue No -Bleeding Controlled with Pressure -Treatment Response Procedure Tolerated Well -Debridement - Subq, 1st 20sq cm No #9 Left Buttocks -Time 10:42 -Correct Patient Yes -Correct Side, Site, Position Yes -Correct Procedure Yes -Procedure Performed Yes -Type of Procedure Debridement -Clinical Debridement Subcutaneous -Tissue Removed Subcutaneous -Post Debridement (cm) - Length 3.2 -Post Debridement (cm) - Width 2.0 -Post Debridement (cm) - Depth 0.1 -Total Square (Post) (cm) 6.40 -Area of Debridement (cm) - Length 3.2 -Area of Debridement (cm) - Width 2.0 -Total Square (Area) (cm) 6.40 -Tunneling No -Undermining/Tunneling No -Circular Undermining No -Wound/Ulcer Outcome Not Healed -Foul Odor after Cleansing No -Bioengineered Tissue No -Bleeding Controlled with Pressure -Treatment Response Procedure Tolerated Well -Debridement - Subq, 1st 20sq cm No 8-right Posterior Thigh -Time 10:28 -Correct Patient Yes -Correct Side, Site, Position Yes -Correct Procedure Yes -Procedure Performed Yes -Type of Procedure Debridement -Clinical Debridement Subcutaneous -Tissue Removed Subcutaneous -Post Debridement (cm) - Length 2.5 -Post Debridement (cm) - Width 1.2 -Post Debridement (cm) - Depth 0.1 -Total Square (Post) (cm) 3.00 -Area of Debridement (cm) - Length 2.5 -Area of Debridement (cm) - Width 1.2 -Total Square (Area) (cm) 3.00 -Tunneling No -Undermining/Tunneling No -Circular Undermining No -Wound/Ulcer Outcome Not Healed -Ulcer Cleansing Rinsed/ Irrigated with Saline -Foul Odor after Cleansing No -Bioengineered Tissue No -Bleeding Controlled with Pressure -Treatment Response Procedure Tolerated Well -Debridement - Subq, 1st 20sq cm Yes 7-left Posterior Thigh -Time 10:28 -Correct Patient Yes -Correct Side, Site, Position Yes -Correct Procedure Yes -Procedure Performed Yes -Type of Procedure Debridement -Clinical Debridement Subcutaneous -Tissue Removed Subcutaneous -Post Debridement (cm) - Length 2.5 -Post Debridement (cm) - Width 2.5 -Post Debridement (cm) - Depth 0.1 -Total Square (Post) (cm) 6.25 -Area of Debridement (cm) - Length 2.5 -Area of Debridement (cm) - Width 2.5 -Total Square (Area) (cm) 6.25 -Tunneling No -Undermining/Tunneling No -Circular Undermining No -Wound/Ulcer Outcome Not Healed -Ulcer Cleansing Rinsed/ Irrigated with Saline -Foul Odor after Cleansing No -Bioengineered Tissue No -Bleeding Controlled with Pressure -Treatment Response Procedure Tolerated Well -Debridement - Subq, 1st 20sq cm No Pain Scale: 0-10 Numeric Is Patient Pain Free? Yes WC - Nurse 3 - General Ulcer D/C NN Start: 03/05/24 09:56 Freq: Status: Active Protocol: Activity Type Activity Date Activity User E-sign Co-sign Detail Recorded Client Recorded Date Recorded By Document 03/05/24 11:02 KELLI [id number] 03/05/24 11:08 KELLI 03/05/24 11:02 Wound Care Center Nurse 3 #10 Right Buttocks -Ulcer Cleansing Rinsed/ Irrigated with Saline -Foul Odor after Cleansing No -Primary Dressing Applied Aquacel Extra, NonAdherent Contact Layer -Primary Dressing Covered/Secured with Dry Gauze, Secured with Tape -Aquacel Extra 2 #9 Left Buttocks -Ulcer Cleansing Rinsed/ Irrigated with Saline -Foul Odor after Cleansing No -Primary Dressing Applied Aquacel Extra, NonAdherent Contact Layer -Primary Dressing Covered/Secured with Dry Gauze, Secured with Tape -Aquacel Extra 0 8-right Posterior Thigh -Ulcer Cleansing Rinsed/ Irrigated with Saline -Foul Odor after Cleansing No -Primary Dressing Applied Aquacel Extra, NonAdherent Contact Layer -Primary Dressing Covered/Secured with Dry Gauze, Secured with Tape -Aquacel Extra 0 7-left Posterior Thigh -Ulcer Cleansing Rinsed/ Irrigated with Saline -Foul Odor after Cleansing No -Primary Dressing Applied Aquacel Extra, NonAdherent Contact Layer -Primary Dressing Covered/Secured with Dry Gauze, Secured with Tape -Aquacel Extra 0 Pain Scale: 0-10 Numeric Is Patient Pain Free? Yes WC - Visit Discharge Discharge Condition Stable Ambulatory Status Wheelchair Transportation Private Auto Accompanied by Medication Reconcilliation completed & No provided to patient/care provider Clinical Summary of Care Provided No Notes: transfer x 3. Additional Wound Wound debrided: Right posterior thigh Wound Grade/Stage: Stage III Type of Debridement: Excisional debridement Anesthesia Used: 4% Lidocaine Solution Depth: Down to and including healthy tissue and in the subcutaneous layer Percentage of wound debrided: 100 Instrument Used: 5mm curette Tissue Removed: Slough and devitalized tissue Severity: Fat Layer Exposed Amount of bleeding with debridement: Mild Bleeding Controlled with: Pressure Patient tolerated procedure: Patient tolerated procedure well Additional Wound Wound debrided: Left buttock Wound Grade/Stage: Stage II Type of Debridement: Excisional debridement Anesthesia Used: 4% Lidocaine Solution Depth: Down to and including healthy tissue Percentage of wound debrided: 100 Instrument Used: 5mm curette Tissue Removed: Devitalized tissue Severity: Limited To Skin Breakdown Amount of bleeding with debridement: Mild Bleeding Controlled with: Pressure Patient tolerated procedure: Patient tolerated procedure well Additional Wound Wound debrided: Right buttock Wound Grade/Stage: Stage II Type of Debridement: Excisional debridement Anesthesia Used: 4% Lidocaine Solution Depth: Down to and including healthy tissue Percentage of wound debrided: 100 Instrument Used: 5mm curette Tissue Removed: Devitalized tissue Severity: Limited To Skin Breakdown Amount of bleeding with debridement: Mild Bleeding Controlled with: Pressure Patient tolerated procedure: Patient tolerated procedure well Charges/Coding Visit Charges Office Visits / Consults: [id number] OV L3 Est 20min Procedures Integumentary [id number]: [id number] Cande subq tissue 20 sq cm/< Assessment/Plan Assessment/Plan (1) Decubitus skin ulcer: CODE(S): L89.90 - Pressure ulcer of unspecified site, unspecified stage PLAN: Bilateral posterior thigh (2) Stage II pressure ulcer of left buttock: CODE(S): L89.322 - Pressure ulcer of left buttock, stage 2 (3) Stage II pressure ulcer of right buttock: CODE(S): L89.312 - Pressure ulcer of right buttock, stage 2 (4) Physical debility: CODE(S): R53.81 - Other malaise PLAN: Plan Debridement done as documented above, procedure was well-tolerated. Ulcers as documented above. Has surrounding erythema and skin injury likely from shearing and pressure. Patient's states that he sits and sleeps in his chair and does not move much. No clinical concerns/signs for infection. For now, Aquacel extra, cover with Adaptic and foam dressing to all reddened areas. As above, has tried a hospital bed in the past and does not tolerate this so will not use it. His states that he has a pressure relieving device on his lift chair. Appetite is good. Samples of Xander given. Stool contamination discussed, she states that they watch closely for this. No history of diabetes. Hopefully with better offloading, recurrence stops. His is his primary caregiver and definitely needs help with his care as patient is almost completely care dependent and homebound. Order for home health placed. Will follow-up in 2 weeks. Their questions were answered and they were advised to let us know if they have any further questions or concerns, they voiced understanding. This note was generated with [email or web address] software. It may contain incorrect words, spelling, and punctuation that were not noted in checking the note before signing.
--- NOTE | 2024-03-06 12:36 | WC ---
PHOTO 03/05/24 LEFT ISCHIUM
[2024-03-19 10:54] VITALS: BP 140/70; PULSE 74; RESP 18; TEMP 35.7; BMI 40.1
--- NOTE | 2024-03-19 13:20 | PN.PCM_ITS ---
History of Present Illness Date of Service: 03/19/24 Chief Complaint: Nonhealing bilateral buttock ulcers History of Wound: Mr. Martins is a 79-year-old who presents to the wound center due to nonhealing bilateral buttock ulcers. His was present with him during his visit. She states that he has had recurrent ulcerations for years but current ulcers started 6 months ago. She has tried some home remedy including ointments and hydrocolloid dressing however following healing, re opening happens. He is very sedentary and sits/sleeps in his chair. She states that they have tried some offloading foams and also hospital bed however, he did not tolerate the hospital bed and so sleeps in the chair. No known history of diabetes or tobacco abuse. Appetite is said to be good. Feels well otherwise. Progress of Wound: Good improvement since his last visit. No new concerns reported at this time. Objective Data Objective Data Vital Signs: Vital Signs Temp Pulse Resp BP 96.3 F L 74 18 140/70 H 03/19/24 10:54 03/19/24 10:54 03/19/24 10:54 03/19/24 10:54 Weight: 280 lb Body Mass Index (BMI) 40.1 Charges/Coding Procedures Integumentary [id number]: [id number] Cande subq tissue 20 sq cm/< Physical Exam Const alert and no apparent distress General Appearance: cooperative, comfortable and well kempt HEENT normocephalic Neck full ROM General: normal visual inspection Resp normal respiratory effort and normal air movement Effort and Inspection: able to speak in complete sentences Cardio regular rate and regular rhythm GI soft to palpation and non-tender Extremity General Extremity: edema Skin Wounds: wounds noted size Size: See clinical note, bed granulating well, margins well approximated and surrounding erythema, no odor, open and surrounding erythema Neuro CN's II-XII intact bilaterally and moves all extremities Psych mental status grossly normal, thought process normal, cooperative and affect normal Debridement Note Debridement Note Wound debrided: Left thigh Type of Debridement: Excisional debridement Anesthesia Used: 5% Lidocaine Gel Depth: Down to and including healthy tissue and in the subcutaneous layer Percentage of wound debrided: 100 Instrument Used: 3mm curette Tissue Removed: Slough and devitalized tissue Severity: Fat Layer Exposed Amount of bleeding with debridement: Mild Bleeding Controlled with: Pressure Patient tolerated procedure: Patient tolerated procedure well Post-Debridement Measurements and Additional Note: Post-Debridement Measurements/Treatment - Nurse 1 - General Ulcer Assessment Start: 03/05/24 09:56 Freq: Status: Active Protocol: SAGE Activity Type Activity Date Activity User E-sign Co-sign Detail Recorded Client Recorded Date Recorded By Document 03/05/24 10:08 [id number] 03/05/24 10:18 Document 03/19/24 10:54 PR [id number] 03/19/24 10:56 PR 03/05/24 03/19/24 10:08 10:54 - Today's Visit Information Type of service Initial Visit Follow-up Visit (Physician/STAMPING OPERATOR ) Arrival Mode Wheelchair Wheelchair Transfer Assistance Manual Accompanied by -lily Patient Identification Verified (Name & Yes Yes ) Patient Requires Transmission-Based No Precautions Safety Precautions Fall Prevention Height and Weight Height 5 ft 10 in Weight 280 lb Weight in Pounds 280.0 lbs Weight Measurement Method Stated by Patient Body Mass Index (BMI) 40.1 40.1 BMI Classification Obese Obese BSA - Roberta 2.41 Vital Signs Temperature (97.8 F-99.1 F) 96.1 F L 96.3 F L Temperature Source Temporal Temporal Pulse Rate (60-100) 78 74 Pulse Location Monitor Monitor Respiratory Rate (12-18) 18 18 Respiratory rate source Observation Observation Blood Pressure (90/60-120/80) 143/89 H 140/70 H Blood Pressure Mean (mm Hg) 107 93 Source Monitor Monitor Position Sitting Sitting Blood Pressure Location Left Arm Left Arm History Since Last Visit- (Skip if this is Patient's initial visit) Has dressing in place as prescribed Yes Has compression in place as prescribed Yes Has offloadiing in place as prescribed Yes Experienced any changes in pain level or Yes management Left Footwear Regular Shoe Regular Shoe Right Footwear Regular Shoe Regular Shoe Pain Scale: 0-10 Numeric Is Patient Pain Free? Yes Yes Communication Assessment Preferred language [place]ian Non Destructive Testing Engineer Required No Able to Read Yes Able to Write Yes Communication Tools None Right Hearing Abillity Hard of Hearing Left Hearing Abillity Hard of Hearing Visual Assistive Devices Glasses Teaching Assessment Preferences Demonstration Barriers to Learning Knowledge Deficit Readiness To Learn Fair Willingness to Engage in Self Management Low Activies Readiness to Engage in Self Management Low Activities Anxiety Level Anxious Cooperation Cooperative Perception Coherent Interest in Health Problem Uninterested Does Patient Smoke tobacco or other No substances Smoking Status Never smoker Is Patient Diabetic No Functional Assessment Recent Decline in Ability to Perform Ambulation, Bathing,Lower Body Dressing, Toileting, Transferring Culture/Nondenominational/Annealing Oven Operator Cultural/Nondenominational Needs that may affect No Treatment Plan Would you allow our hospital meat cutter to No meet you for the purpose of spiritual/ emotional support? Annealing Oven Operator to contact place of adventist No Teaching: Wound Center Skin Care -Person Taught Patient -Teaching Method Discussion, Demonstration -Response to teaching Return Demonstration, Verbalize Understanding - Nurse 1 - General Ulcer Measurement Start: 03/05/24 09:56 Freq: Status: Active Protocol: Activity Type Activity Date Activity User E-sign Co-sign Detail Recorded Client Recorded Date Recorded By Document 03/05/24 10:08 [id number] 03/05/24 10:18 Document 03/19/24 10:54 PR [id number] 03/19/24 10:56 PR 03/05/24 03/19/24 10:08 10:54 Wound Center Nurse 1 #9 Left Buttocks -Current Size (cm) - Length 0.1 -Current Size (cm) - Width 0.1 -Current Size (cm) - Depth 0.1 -Total Square Cm 0.01 -Exudate Amt None Present -Wound Margin Flat & Intact -Texture (Alyse-wound Skin Appearance) Assessed -Moisture (Alyse-wound Skin Appearance) Assessed -Color (Alyse-wound Skin Appearance) Assessed -Temperature (Alyse-wound Skin No Abnormality Appearance) (Pt Warm) -Tenderness on Palpation (Alyse-wound No Skin Appearance) -Ulcer Cleansing Soap and Water -Foul Odor after Cleansing No -Anesthetic Used 5% Lidocaine Gel 8-right Posterior Thigh -Combined with other wound No -Current Size (cm) - Length 0.5 0.1 -Current Size (cm) - Width 0.8 0.1 -Current Size (cm) - Depth 0.1 0.1 -Total Square Cm 0.40 0.01 -Photo Taken Yes No -Epithelialization Small 1-33% Large 67-100% -Tunneling No No -Undermining/Tunneling No No -Circular Undermining No No -Classification - Thickness Unclassifiable (Eschar Covered ) -Exudate Amt Small -Exudate Type Serosanguineous -Wound Margin Flat & Intact Flat & Intact -Granulation Amt None Present (0 Large (67-100%) %) -Granulation Quality N/A -Slough/Fibrin Yes -Necrosis Amt Large (67-100%) -Necrotic Tissue Type Adherent Slough -Structure Exposed N/A -Texture (Alyse-wound Skin Appearance) Assessed, Assessed Excoriation -Moisture (Alyse-wound Skin Appearance) Assessed,Dry/ Assessed Scaly -Color (Alyse-wound Skin Appearance) Assessed Assessed -Temperature (Alyse-wound Skin No Abnormality No Abnormality Appearance) (Pt Warm) (Pt Warm) -Tenderness on Palpation (Alyse-wound No No Skin Appearance) -Ulcer Cleansing Soap and Water Rinsed/ Irrigated with Saline -Foul Odor after Cleansing No No -Anesthetic Used 5% Lidocaine 5% Lidocaine Gel Gel #10 Right Buttocks -Current Size (cm) - Length 0.1 -Current Size (cm) - Width 0.1 -Current Size (cm) - Depth 0.1 -Total Square Cm 0.01 -Exudate Amt None Present -Texture (Alyse-wound Skin Appearance) Assessed -Moisture (Alyse-wound Skin Appearance) Assessed -Color (Alyse-wound Skin Appearance) Assessed -Temperature (Alyse-wound Skin No Abnormality Appearance) (Pt Warm) -Tenderness on Palpation (Alyse-wound No Skin Appearance) -Ulcer Cleansing Soap and Water -Foul Odor after Cleansing No -Anesthetic Used 5% Lidocaine Gel 7-left Posterior Thigh -Combined with other wound No -Current Size (cm) - Length 2.0 0.1 -Current Size (cm) - Width 1.5 0.1 -Current Size (cm) - Depth 0.1 0.1 -Total Square Cm 3.00 0.01 -Photo Taken Yes -Epithelialization Small 1-33% -Tunneling No -Undermining/Tunneling No -Circular Undermining No -Classification - Thickness Unclassifiable (Eschar Covered ) -Exudate Amt Small -Exudate Type Serosanguineous -Wound Margin Flat & Intact -Granulation Amt Small (1-33%) -Granulation Quality Red -Necrosis Amt Medium (34-66%) -Necrotic Tissue Type Adherent Slough -Structure Exposed N/A -Texture (Alyse-wound Skin Appearance) Assessed -Moisture (Alyse-wound Skin Appearance) Assessed,Dry/ Scaly -Color (Alyse-wound Skin Appearance) Assessed -Temperature (Alyse-wound Skin No Abnormality Appearance) (Pt Warm) -Tenderness on Palpation (Alyse-wound No Skin Appearance) -Ulcer Cleansing Wound Cleanser -Foul Odor after Cleansing No -Anesthetic Used 5% Lidocaine Gel Lower Limb Edema Present NA NA WC - Nurse 2 - General Ulcer CM Notes Start: 03/05/24 09:56 Freq: Status: Active Protocol: Activity Type Activity Date Activity User E-sign Co-sign Detail Recorded Client Recorded Date Recorded By Document 03/05/24 10:27 [id number] 03/05/24 10:48 Document 03/19/24 11:06 [id number] 03/19/24 11:13 03/05/24 03/19/24 10:27 11:06 Wound Center Nurse 2 #9 Left Buttocks -Time 10:42 11:07 -Correct Patient Yes Yes -Correct Side, Site, Position Yes Yes -Correct Procedure Yes No -Procedure Performed Yes No -Type of Procedure Debridement -Clinical Debridement Subcutaneous -Tissue Removed Subcutaneous -Post Debridement (cm) - Length 3.2 -Post Debridement (cm) - Width 2.0 -Post Debridement (cm) - Depth 0.1 -Total Square (Post) (cm) 6.40 -Area of Debridement (cm) - Length 3.2 -Area of Debridement (cm) - Width 2.0 -Total Square (Area) (cm) 6.40 -Tunneling No -Undermining/Tunneling No -Circular Undermining No -Wound/Ulcer Outcome Not Healed Healed- Epithelialized -Foul Odor after Cleansing No -Bioengineered Tissue No -Bleeding Controlled with Pressure -Treatment Response Procedure Tolerated Well -Debridement - Subq, 1st 20sq cm No 8-right Posterior Thigh -Time 10:28 11:07 -Correct Patient Yes Yes -Correct Side, Site, Position Yes Yes -Correct Procedure Yes No -Procedure Performed Yes No -Type of Procedure Debridement -Clinical Debridement Subcutaneous -Tissue Removed Subcutaneous -Post Debridement (cm) - Length 2.5 -Post Debridement (cm) - Width 1.2 -Post Debridement (cm) - Depth 0.1 -Total Square (Post) (cm) 3.00 -Area of Debridement (cm) - Length 2.5 -Area of Debridement (cm) - Width 1.2 -Total Square (Area) (cm) 3.00 -Tunneling No -Undermining/Tunneling No -Circular Undermining No -Wound/Ulcer Outcome Not Healed Healed- Epithelialized -Ulcer Cleansing Rinsed/ Irrigated with Saline -Foul Odor after Cleansing No -Bioengineered Tissue No -Bleeding Controlled with Pressure -Treatment Response Procedure Tolerated Well -Debridement - Subq, 1st 20sq cm Yes #10 Right Buttocks -Time 10:43 11:07 -Correct Patient Yes Yes -Correct Side, Site, Position Yes Yes -Correct Procedure Yes Yes -Procedure Performed Yes Yes -Type of Procedure Debridement Debridement -Clinical Debridement Subcutaneous Subcutaneous -Tissue Removed Subcutaneous Subcutaneous -Post Debridement (cm) - Length 0.2 0.4 -Post Debridement (cm) - Width 0.2 0.5 -Post Debridement (cm) - Depth 0.1 0.1 -Total Square (Post) (cm) 0.04 0.20 -Area of Debridement (cm) - Length 0.2 0.4 -Area of Debridement (cm) - Width 0.2 0.5 -Total Square (Area) (cm) 0.04 0.20 -Tunneling No No -Undermining/Tunneling No No -Circular Undermining No No -Wound/Ulcer Outcome Not Healed Not Healed -Ulcer Cleansing Rinsed/ Rinsed/ Irrigated with Irrigated with Saline Saline -Foul Odor after Cleansing No No -Bioengineered Tissue No No -Bleeding Controlled with Pressure Pressure -Treatment Response Procedure Procedure Tolerated Well Tolerated Well -Debridement - Subq, 1st 20sq cm No Yes 7-left Posterior Thigh -Time 10:28 11:07 -Correct Patient Yes Yes -Correct Side, Site, Position Yes Yes -Correct Procedure Yes Yes -Procedure Performed Yes Yes -Type of Procedure Debridement Debridement -Clinical Debridement Subcutaneous Subcutaneous -Tissue Removed Subcutaneous Subcutaneous -Post Debridement (cm) - Length 2.5 0.4 -Post Debridement (cm) - Width 2.5 0.4 -Post Debridement (cm) - Depth 0.1 0.1 -Total Square (Post) (cm) 6.25 0.16 -Area of Debridement (cm) - Length 2.5 0.4 -Area of Debridement (cm) - Width 2.5 0.4 -Total Square (Area) (cm) 6.25 0.16 -Tunneling No No -Undermining/Tunneling No No -Circular Undermining No No -Wound/Ulcer Outcome Not Healed Not Healed -Ulcer Cleansing Rinsed/ Irrigated with Saline -Foul Odor after Cleansing No -Bioengineered Tissue No -Bleeding Controlled with Pressure Pressure -Treatment Response Procedure Procedure Tolerated Well Tolerated Well -Debridement - Subq, 1st 20sq cm No No Pain Scale: 0-10 Numeric Is Patient Pain Free? Yes Yes - Nurse 3 - General Ulcer D/C NN Start: 03/05/24 09:56 Freq: Status: Active Protocol: Activity Type Activity Date Activity User E-sign Co-sign Detail Recorded Client Recorded Date Recorded By Document 03/05/24 11:02 [id number] 03/05/24 11:08 Document 03/19/24 11:22 MT [id number] 03/19/24 11:27 PR 03/05/24 03/19/24 11:02 11:22 Wound Care Center Nurse 3 #9 Left Buttocks -Ulcer Cleansing Rinsed/ Irrigated with Saline -Foul Odor after Cleansing No -Primary Dressing Applied Aquacel Extra, NonAdherent Contact Layer -Primary Dressing Covered/Secured with Dry Gauze, Secured with Tape -Aquacel Extra 0 8-right Posterior Thigh -Ulcer Cleansing Rinsed/ Irrigated with Saline -Foul Odor after Cleansing No -Primary Dressing Applied Aquacel Extra, NonAdherent Contact Layer -Primary Dressing Covered/Secured with Dry Gauze, Secured with Tape -Aquacel Extra 0 #10 Right Buttocks -Ulcer Cleansing Rinsed/ Rinsed/ Irrigated with Irrigated with Saline Saline -Foul Odor after Cleansing No -Primary Dressing Applied Aquacel Extra, Aquacel Extra, NonAdherent Mepilex Border, Contact Layer NonAdherent Contact Layer -Primary Dressing Covered/Secured with Dry Gauze, Secured with Tape -Aquacel Extra 2 1 -Mepilex Border 1 7-left Posterior Thigh -Ulcer Cleansing Rinsed/ Rinsed/ Irrigated with Irrigated with Saline Saline -Foul Odor after Cleansing No -Primary Dressing Applied Aquacel Extra, NonAdherent NonAdherent Contact Layer Contact Layer -Other Dressing aquacel extra -Primary Dressing Covered/Secured with Dry Gauze, Dry Gauze, Secured with Secured with Tape Tape -Aquacel Extra 0 Treatment Response Procedure Tolerated Well Pain Scale: 0-10 Numeric Is Patient Pain Free? Yes Yes - Visit Discharge Discharge Condition Stable Stable Ambulatory Status Wheelchair Wheelchair Transportation Private Auto Private Auto Accompanied by Medication Reconcilliation completed & No No provided to patient/care provider Clinical Summary of Care Provided No Yes Notes: transfer x 3. Additional Wound Wound debrided: Right buttock Type of Debridement: Excisional debridement Anesthesia Used: 4% Lidocaine Solution Depth: Down to and including healthy tissue and in the subcutaneous layer Percentage of wound debrided: 100 Instrument Used: 3mm curette Tissue Removed: Slough and devitalized tissue Severity: Fat Layer Exposed Amount of bleeding with debridement: Mild Bleeding Controlled with: Pressure Patient tolerated procedure: Patient tolerated procedure well Assessment/Plan Assessment/Plan (1) Decubitus skin ulcer: CODE(S): L89.90 - Pressure ulcer of unspecified site, unspecified stage PLAN: Bilateral posterior thigh (2) Stage II pressure ulcer of left buttock: CODE(S): L89.322 - Pressure ulcer of left buttock, stage 2 (3) Stage II pressure ulcer of right buttock: CODE(S): L89.312 - Pressure ulcer of right buttock, stage 2 (4) Physical debility: CODE(S): R53.81 - Other malaise PLAN: Plan Debridement done as documented above, procedure was well-tolerated. Some improvement noted since his last visit. Now only has left thigh and right buttock open areas. Still some areas of erythema. Continue Aquacel extra, cover with Adaptic and foam dressing to all reddened areas. Continue offloading, optimal nutritional/protein intake and other chronic wound care. Now have home health and criminal justice social worker involved as well. Their questions were answered and they were advised to let us know if they have any further questions or concerns, they voiced understanding. This note was generated with aDealioation software. It may contain incorrect words, spelling, and punctuation that were not noted in checking the note before signing.
--- NOTE | 2024-03-23 12:04 | WC ---
PHOTO 03/19/24 LEFT BUTTOCKS
--- NOTE | 2024-03-23 12:05 | WC ---
PHOTO 03/19/24 RIGHT THIGH
[2024-03-26 10:19] VITALS: BP 122/61; PULSE 75; RESP 18; TEMP 35.7; BMI 40.1
--- NOTE | 2024-03-26 10:59 | PCM.WC.PN ---
History of Present Illness Date of Service: 03/26/24 Chief Complaint: Nonhealing bilateral buttock ulcers History of Wound: Mr. Martins is a 79-year-old who presents to the wound center due to nonhealing bilateral buttock ulcers. His was present with him during his visit. She states that he has had recurrent ulcerations for years but current ulcers started 6 months ago. She has tried some home remedy including ointments and hydrocolloid dressing however following healing, re opening happens. He is very sedentary and sits/sleeps in his chair. She states that they have tried some offloading foams and also hospital bed however, he did not tolerate the hospital bed and so sleeps in the chair. No known history of diabetes or tobacco abuse. Appetite is said to be good. Feels well otherwise. Progress of Wound: Presents with new areas of opening in same region. states that he still scoots around on his buttock a lot. Also some surrounding areas of dryness. No other concerns reported. Objective Data Objective Data Vital Signs: Vital Signs Temp Pulse Resp BP O2 Del Method 96.2 F L 75 18 122/61 H Room Air 03/26/24 10:19 03/26/24 10:19 03/26/24 10:19 03/26/24 10:19 03/26/24 10:19 Oxygen Delivery Method Room Air Weight: 280 lb Body Mass Index (BMI) 40.1 Charges/Coding Procedures Integumentary [id number]: [id number] Cande subq tissue 20 sq cm/< Physical Exam Const alert and no apparent distress General Appearance: cooperative, comfortable and well kempt HEENT normocephalic Neck full ROM General: normal visual inspection Resp normal respiratory effort and normal air movement Effort and Inspection: able to speak in complete sentences Cardio regular rate and regular rhythm GI soft to palpation and non-tender Extremity General Extremity: edema Skin Wounds: wounds noted size Size: See clinical note, bed granulating well, margins well approximated and surrounding erythema, no odor, open and surrounding erythema Neuro CN's II-XII intact bilaterally and moves all extremities Psych mental status grossly normal, thought process normal, cooperative and affect normal Debridement Note Debridement Note Wound debrided: Left buttock Wound Grade/Stage: Stage II Type of Debridement: Excisional debridement Anesthesia Used: 4% Lidocaine Solution Depth: Down to and including healthy tissue and in the subcutaneous layer Percentage of wound debrided: 100 Instrument Used: 3mm curette Tissue Removed: Slough and devitalized tissue Severity: Fat Layer Exposed Amount of bleeding with debridement: Mild Bleeding Controlled with: Pressure Patient tolerated procedure: Patient tolerated procedure well Post-Debridement Measurements and Additional Note: Post-Debridement Measurements/Treatment WC - Nurse 1 - General Ulcer Assessment Start: 03/05/24 09:56 Freq: Status: Active Protocol: SAGE Activity Type Activity Date Activity User E-sign Co-sign Detail Recorded Client Recorded Date Recorded By Document 03/05/24 10:08 JF [id number] 03/05/24 10:18 JF Document 03/19/24 10:54 MT [id number] 03/19/24 10:56 MT Document 03/26/24 10:19 KW [id number] 03/26/24 10:32 KW 03/05/24 03/19/24 03/26/24 10:08 10:54 10:19 - Today's Visit Information Type of service Initial Visit Follow-up Visit Follow-up Visit (Physician/SOLAR ENER[employer] SALES SPECIALIST (Physician/SOLAR ENERGY SALES SPECIALIST ) ) Arrival Mode Wheelchair Wheelchair Wheelchair Transfer Assistance Manual Accompanied by -lily Patient Identification Verified (Name & Yes Yes Yes ) Patient Requires Transmission-Based No Precautions Safety Precautions Fall Prevention Height and Weight Height 5 ft 10 in Weight 280 lb Weight in Pounds 280.0 lbs Weight Measurement Method Stated by Patient Body Mass Index (BMI) 40.1 40.1 40.1 BMI Classification Obese Obese Obese BSA - Roberta 2.41 Vital Signs Temperature (97.8 F-99.1 F) 96.1 F L 96.3 F L 96.2 F L Temperature Source Temporal Temporal Temporal Pulse Rate (60-100) 78 74 75 Pulse Location Monitor Monitor Monitor Respiratory Rate (12-18) 18 18 18 Respiratory rate source Observation Observation Observation Oxygen Delivery Method Room Air Blood Pressure (90/60-120/80) 143/89 H 140/70 H 122/61 H Blood Pressure Mean (mm Hg) 107 93 81 Source Monitor Monitor Monitor Position Sitting Sitting Sitting Blood Pressure Location Left Arm Left Arm Left Arm History Since Last Visit- (Skip if this is Patient's initial visit) Have you changed medications since your No last visit? Any new allergies or adverse reactions No Had a fall/change in ADL's that may No increase risk of falls Signs or symptoms of abuse and/or No neglect since last visit Have you been in the hospital since your No last visit? Has dressing in place as prescribed Yes Yes Has compression in place as prescribed Yes N/A Has offloadiing in place as prescribed Yes N/A Experienced any changes in pain level or Yes No management Left Footwear Regular Shoe Regular Shoe Regular Shoe Right Footwear Regular Shoe Regular Shoe Regular Shoe Pain Scale: 0-10 Numeric Is Patient Pain Free? Yes Yes Yes Communication Assessment Preferred language Malay Rehab Tech Required No Able to Read Yes Able to Write Yes Communication Tools None Right Hearing Abillity Hard of Hearing Left Hearing Abillity Hard of Hearing Visual Assistive Devices Glasses Teaching Assessment Preferences Demonstration Barriers to Learning Knowledge Deficit Readiness To Learn Fair Willingness to Engage in Self Management Low Activies Readiness to Engage in Self Management Low Activities Anxiety Level Anxious Cooperation Cooperative Perception Coherent Interest in Health Problem Uninterested Does Patient Smoke tobacco or other No substances Smoking Status Never smoker Is Patient Diabetic No Functional Assessment Recent Decline in Ability to Perform Ambulation, Bathing,Lower Body Dressing, Toileting, Transferring Culture/Islam/Cytogenetic Technologist Cultural/Islam Needs that may affect No Treatment Plan Would you allow our hospital heat treat inspector to No meet you for the purpose of spiritual/ emotional support? Cytogenetic Technologist to contact place of rastafarian No Teaching: Wound Center Skin Care -Person Taught Patient -Teaching Method Discussion, Demonstration -Response to teaching Return Demonstration, Verbalize Understanding WC - Nurse 1 - General Ulcer Measurement Start: 03/05/24 09:56 Freq: Status: Active Protocol: Activity Type Activity Date Activity User E-sign Co-sign Detail Recorded Client Recorded Date Recorded By Document 03/05/24 10:08 JF [id number] 03/05/24 10:18 JF Document 03/19/24 10:54 MT [id number] 03/19/24 10:56 MT Document 03/26/24 10:19 KW [id number] 03/26/24 10:32 KW 03/05/24 03/19/24 03/26/24 10:08 10:54 10:19 Wound Center Nurse 1 #10 Right Buttocks -Current Size (cm) - Length 0.1 0.3 -Current Size (cm) - Width 0.1 0.2 -Current Size (cm) - Depth 0.1 0.1 -Total Square Cm 0.01 0.06 -Exudate Amt None Present None Present -Wound Margin Distinct, Outline Attached -Granulation Amt Large (67-100%) -Granulation Quality [place] -Texture (Alyse-wound Skin Appearance) Assessed Assessed -Moisture (Alyse-wound Skin Appearance) Assessed Assessed -Color (Alyse-wound Skin Appearance) Assessed Assessed -Temperature (Alyse-wound Skin No Abnormality No Abnormality Appearance) (Pt Warm) (Pt Warm) -Tenderness on Palpation (Alyse-wound No No Skin Appearance) -Ulcer Cleansing Soap and Water Rinsed/ Irrigated with Saline -Foul Odor after Cleansing No No -Anesthetic Used 5% Lidocaine Gel #9 Left Buttocks -Current Size (cm) - Length 0.1 0.6 -Current Size (cm) - Width 0.1 0.5 -Current Size (cm) - Depth 0.1 0.1 -Total Square Cm 0.01 0.30 -Exudate Amt None Present None Present -Exudate Type Serosanguineous -Wound Margin Flat & Intact Distinct, Outline Attached -Granulation Amt Large (67-100%) -Granulation Quality Red -Texture (Alyse-wound Skin Appearance) Assessed Assessed -Moisture (Alyse-wound Skin Appearance) Assessed Assessed -Color (Alyse-wound Skin Appearance) Assessed Assessed -Temperature (Alyse-wound Skin No Abnormality No Abnormality Appearance) (Pt Warm) (Pt Warm) -Tenderness on Palpation (Alyse-wound No No Skin Appearance) -Ulcer Cleansing Soap and Water Rinsed/ Irrigated with Saline -Foul Odor after Cleansing No No -Anesthetic Used 5% Lidocaine Gel 8-right Posterior Thigh -Combined with other wound No -Current Size (cm) - Length 0.5 0.1 0.2 -Current Size (cm) - Width 0.8 0.1 0.1 -Current Size (cm) - Depth 0.1 0.1 0.1 -Total Square Cm 0.40 0.01 0.02 -Photo Taken Yes No -Epithelialization Small 1-33% Large 67-100% -Tunneling No No -Undermining/Tunneling No No -Circular Undermining No No -Classification - Thickness Unclassifiable (Eschar Covered ) -Exudate Amt Small None Present -Exudate Type Serosanguineous -Wound Margin Flat & Intact Flat & Intact Distinct, Outline Attached -Granulation Amt None Present (0 Large (67-100%) Large (67-100%) %) -Granulation Quality N/A [place],Red -Slough/Fibrin Yes -Necrosis Amt Large (67-100%) -Necrotic Tissue Type Adherent Slough -Structure Exposed N/A -Texture (Alyse-wound Skin Appearance) Assessed, Assessed Assessed Excoriation -Moisture (Alyse-wound Skin Appearance) Assessed,Dry/ Assessed Assessed Scaly -Color (Alyse-wound Skin Appearance) Assessed Assessed Assessed -Temperature (Alyse-wound Skin No Abnormality No Abnormality No Abnormality Appearance) (Pt Warm) (Pt Warm) (Pt Warm) -Tenderness on Palpation (Alyse-wound No No No Skin Appearance) -Ulcer Cleansing Soap and Water Rinsed/ Rinsed/ Irrigated with Irrigated with Saline Saline -Foul Odor after Cleansing No No No -Anesthetic Used 5% Lidocaine 5% Lidocaine Gel Gel 7-left Posterior Thigh -Combined with other wound No -Current Size (cm) - Length 2.0 0.1 0.4 -Current Size (cm) - Width 1.5 0.1 0.3 -Current Size (cm) - Depth 0.1 0.1 0.1 -Total Square Cm 3.00 0.01 0.12 -Photo Taken Yes -Epithelialization Small 1-33% -Tunneling No -Undermining/Tunneling No -Circular Undermining No -Classification - Thickness Unclassifiable (Eschar Covered ) -Exudate Amt Small None Present -Exudate Type Serosanguineous -Wound Margin Flat & Intact Distinct, Outline Attached -Granulation Amt Small (1-33%) Large (67-100%) -Granulation Quality Red [place],Red -Necrosis Amt Medium (34-66%) -Necrotic Tissue Type Adherent Slough -Structure Exposed N/A -Texture (Alyse-wound Skin Appearance) Assessed Assessed -Moisture (Alyse-wound Skin Appearance) Assessed,Dry/ Assessed Scaly -Color (Alyse-wound Skin Appearance) Assessed Assessed -Temperature (Alyse-wound Skin No Abnormality No Abnormality Appearance) (Pt Warm) (Pt Warm) -Tenderness on Palpation (Alyse-wound No No Skin Appearance) -Ulcer Cleansing Wound Cleanser Rinsed/ Irrigated with Saline -Foul Odor after Cleansing No No -Anesthetic Used 5% Lidocaine Gel Lower Limb Edema Present NA NA WC - Nurse 2 - General Ulcer CM Notes Start: 03/05/24 09:56 Freq: Status: Active Protocol: Activity Type Activity Date Activity User E-sign Co-sign Detail Recorded Client Recorded Date Recorded By Document 03/05/24 10:27 [id number] 03/05/24 10:48 Document 03/19/24 11:06 [id number] 03/19/24 11:13 Document 03/26/24 10:37 [id number] 03/26/24 10:48 03/05/24 03/19/24 03/26/24 10:27 11:06 10:37 Wound Center Nurse 2 #10 Right Buttocks -Time 10:43 11:07 10:42 -Correct Patient Yes Yes Yes -Correct Side, Site, Position Yes Yes Yes -Correct Procedure Yes Yes Yes -Procedure Performed Yes Yes Yes -Type of Procedure Debridement Debridement Debridement -Clinical Debridement Subcutaneous Subcutaneous Subcutaneous -Tissue Removed Subcutaneous Subcutaneous Subcutaneous -Post Debridement (cm) - Length 0.2 0.4 0.5 -Post Debridement (cm) - Width 0.2 0.5 0.4 -Post Debridement (cm) - Depth 0.1 0.1 0.1 -Total Square (Post) (cm) 0.04 0.20 0.20 -Area of Debridement (cm) - Length 0.2 0.4 0.5 -Area of Debridement (cm) - Width 0.2 0.5 0.4 -Total Square (Area) (cm) 0.04 0.20 0.20 -Tunneling No No No -Undermining/Tunneling No No No -Circular Undermining No No No -Wound/Ulcer Outcome Not Healed Not Healed Not Healed -Ulcer Cleansing Rinsed/ Rinsed/ Rinsed/ Irrigated with Irrigated with Irrigated with Saline Saline Saline -Foul Odor after Cleansing No No No -Bioengineered Tissue No No No -Bleeding Controlled with Pressure Pressure Pressure -Treatment Response Procedure Procedure Procedure Tolerated Well Tolerated Well Tolerated Well -Debridement - Subq, 1st 20sq cm No Yes No #9 Left Buttocks -Time 10:42 11:07 10:43 -Correct Patient Yes Yes Yes -Correct Side, Site, Position Yes Yes Yes -Correct Procedure Yes No Yes -Procedure Performed Yes No Yes -Type of Procedure Debridement Debridement -Clinical Debridement Subcutaneous Subcutaneous -Tissue Removed Subcutaneous Subcutaneous -Post Debridement (cm) - Length 3.2 0.5 -Post Debridement (cm) - Width 2.0 0.4 -Post Debridement (cm) - Depth 0.1 0.1 -Total Square (Post) (cm) 6.40 0.20 -Area of Debridement (cm) - Length 3.2 0.5 -Area of Debridement (cm) - Width 2.0 0.4 -Total Square (Area) (cm) 6.40 0.20 -Tunneling No No -Undermining/Tunneling No No -Circular Undermining No No -Wound/Ulcer Outcome Not Healed Healed- Not Healed Epithelialized -Ulcer Cleansing Rinsed/ Irrigated with Saline -Foul Odor after Cleansing No No -Bioengineered Tissue No No -Bleeding Controlled with Pressure Pressure -Treatment Response Procedure Procedure Tolerated Well Tolerated Well -Offloading No -Debridement - Subq, 1st 20sq cm No No 8-right Posterior Thigh -Time 10: 11: 10:43 -Correct Patient Yes Yes Yes -Correct Side, Site, Position Yes Yes Yes -Correct Procedure Yes No Yes -Procedure Performed Yes No Yes -Type of Procedure Debridement Debridement -Clinical Debridement Subcutaneous Subcutaneous -Tissue Removed Subcutaneous Subcutaneous -Post Debridement (cm) - Length 2.5 0.4 -Post Debridement (cm) - Width 1.2 0.6 -Post Debridement (cm) - Depth 0.1 0.1 -Total Square (Post) (cm) 3.00 0.24 -Area of Debridement (cm) - Length 2.5 0.4 -Area of Debridement (cm) - Width 1.2 0.6 -Total Square (Area) (cm) 3.00 0.24 -Tunneling No No -Undermining/Tunneling No No -Circular Undermining No No -Wound/Ulcer Outcome Not Healed Healed- Not Healed Epithelialized -Ulcer Cleansing Rinsed/ Rinsed/ Irrigated with Irrigated with Saline Saline -Foul Odor after Cleansing No No -Bioengineered Tissue No No -Bleeding Controlled with Pressure Pressure -Treatment Response Procedure Procedure Tolerated Well Tolerated Well -Offloading No -Debridement - Subq, 1st 20sq cm Yes No 7-left Posterior Thigh -Time 10: 11: 10:44 -Correct Patient Yes Yes Yes -Correct Side, Site, Position Yes Yes Yes -Correct Procedure Yes Yes Yes -Procedure Performed Yes Yes Yes -Type of Procedure Debridement Debridement Debridement -Clinical Debridement Subcutaneous Subcutaneous Subcutaneous -Tissue Removed Subcutaneous Subcutaneous Subcutaneous -Post Debridement (cm) - Length 2.5 0.4 0.4 -Post Debridement (cm) - Width 2.5 0.4 0.4 -Post Debridement (cm) - Depth 0.1 0.1 0.1 -Total Square (Post) (cm) 6.25 0.16 0.16 -Area of Debridement (cm) - Length 2.5 0.4 0.4 -Area of Debridement (cm) - Width 2.5 0.4 0.4 -Total Square (Area) (cm) 6.25 0.16 0.16 -Tunneling No No No -Undermining/Tunneling No No No -Circular Undermining No No No -Wound/Ulcer Outcome Not Healed Not Healed Not Healed -Ulcer Cleansing Rinsed/ Rinsed/ Irrigated with Irrigated with Saline Saline -Foul Odor after Cleansing No No -Bioengineered Tissue No No -Bleeding Controlled with Pressure Pressure Pressure -Treatment Response Procedure Procedure Tolerated Well Tolerated Well -Debridement - Subq, 1st 20sq cm No No Yes Pain Scale: 0-10 Numeric Is Patient Pain Free? Yes Yes Yes - Nurse 3 - General Ulcer D/C NN Start: 03/05/24 09:56 Freq: Status: Active Protocol: Activity Type Activity Date Activity User E-sign Co-sign Detail Recorded Client Recorded Date Recorded By Document 03/05/24 11:02 [id number] 03/05/24 11:08 Document 03/19/24 11:22 ID [id number] 03/19/24 11:27 ID 03/05/24 03/19/24 11:02 11:22 Wound Care Center Nurse 3 #10 Right Buttocks -Ulcer Cleansing Rinsed/ Rinsed/ Irrigated with Irrigated with Saline Saline -Foul Odor after Cleansing No -Primary Dressing Applied Aquacel Extra, Aquacel Extra, NonAdherent Mepilex Border, Contact Layer NonAdherent Contact Layer -Primary Dressing Covered/Secured with Dry Gauze, Secured with Tape -Aquacel Extra 2 1 -Mepilex Border 1 #9 Left Buttocks -Ulcer Cleansing Rinsed/ Irrigated with Saline -Foul Odor after Cleansing No -Primary Dressing Applied Aquacel Extra, NonAdherent Contact Layer -Primary Dressing Covered/Secured with Dry Gauze, Secured with Tape -Aquacel Extra 0 8-right Posterior Thigh -Ulcer Cleansing Rinsed/ Irrigated with Saline -Foul Odor after Cleansing No -Primary Dressing Applied Aquacel Extra, NonAdherent Contact Layer -Primary Dressing Covered/Secured with Dry Gauze, Secured with Tape -Aquacel Extra 0 7-left Posterior Thigh -Ulcer Cleansing Rinsed/ Rinsed/ Irrigated with Irrigated with Saline Saline -Foul Odor after Cleansing No -Primary Dressing Applied Aquacel Extra, NonAdherent NonAdherent Contact Layer Contact Layer -Other Dressing aquacel extra -Primary Dressing Covered/Secured with Dry Gauze, Dry Gauze, Secured with Secured with Tape Tape -Aquacel Extra 0 Treatment Response Procedure Tolerated Well Pain Scale: 0-10 Numeric Is Patient Pain Free? Yes Yes WC - Visit Discharge Discharge Condition Stable Stable Ambulatory Status Wheelchair Wheelchair Transportation Private Auto Private Auto Accompanied by Medication Reconcilliation completed & No No provided to patient/care provider Clinical Summary of Care Provided No Yes Notes: transfer x 3. Additional Wound Wound debrided: Right buttock Wound Grade/Stage: Stage III Type of Debridement: Excisional debridement Anesthesia Used: 4% Lidocaine Solution Depth: Down to and including healthy tissue and in the subcutaneous layer Percentage of wound debrided: 100 Instrument Used: 3mm curette Tissue Removed: Slough and devitalized tissue Severity: Fat Layer Exposed Amount of bleeding with debridement: Mild Bleeding Controlled with: Pressure Patient tolerated procedure: Patient tolerated procedure well Additional Wound Wound debrided: Left thigh Wound Grade/Stage: Stage III Type of Debridement: Excisional debridement Anesthesia Used: 4% Lidocaine Solution Depth: Down to and including healthy tissue and in the subcutaneous layer Percentage of wound debrided: 100 Instrument Used: 3mm curette Tissue Removed: Slough and devitalized tissue Severity: Fat Layer Exposed Amount of bleeding with debridement: Mild Bleeding Controlled with: Pressure Patient tolerated procedure: Patient tolerated procedure well Additional Wound Wound debrided: Right thigh Wound Grade/Stage: Stage III Type of Debridement: Excisional debridement Anesthesia Used: 4% Lidocaine Solution Depth: Down to and including healthy tissue and in the subcutaneous layer Percentage of wound debrided: 100 Instrument Used: 3mm curette Tissue Removed: Slough and devitalized tissue Severity: Fat Layer Exposed Amount of bleeding with debridement: Mild Bleeding Controlled with: Pressure Patient tolerated procedure: Patient tolerated procedure well Assessment/Plan Assessment/Plan (1) Decubitus skin ulcer: CODE(S): L89.90 - Pressure ulcer of unspecified site, unspecified stage PLAN: Bilateral posterior thigh (2) Stage II pressure ulcer of left buttock: CODE(S): L89.322 - Pressure ulcer of left buttock, stage 2 (3) Stage II pressure ulcer of right buttock: CODE(S): L89.312 - Pressure ulcer of right buttock, stage 2 (4) Physical debility: CODE(S): R53.81 - Other malaise (5) Decubitus ulcer, stage 3: CODE(S): L89.93 - Pressure ulcer of unspecified site, stage 3 PLAN: Plan Debridement done as documented above, procedure was well-tolerated. Now presents with new areas of opening in all 4 prior areas. These are different from what he had previously. As above, repetitive movements/sheering reported by his . This is chronic/ongoing and very likely not going to change. She states that since he is stable she questions the necessity of coming weekly. I agree. This is a chronic ongoing issue and likely to continue. We have engaged home health care and social media developer. He is not open to a hospital bed or other forms of offloading. Continue Aquacel extra, cover with Adaptic and foam dressing to all reddened areas. She was advised to stop using the pink salve and apply Vaseline to areas of erythema/irritation. Apply copious amount. Continue offloading, optimal nutritional/protein intake and other chronic wound care. Their questions were answered and they were advised to let us know if they have any further questions or concerns. Follow-up in a month or sooner if needed. This note was generated with [employer] dictation software. It may contain incorrect words, spelling, and punctuation that were not noted in checking the note before signing.
== END 2024-03-31 23:59 | disposition home or self-care (01) ==
LOC: WC 10:15
PROVIDERS: PCP Family Medicine; Referring Provider Family Medicine; Visit Provider Internal Medicine
DX: L89.312 Pressure ulcer of right buttock, stage 2 (principal); L89.322 Pressure ulcer of left buttock, stage 2; L98.492 Non-pressure chronic ulcer of skin of other sites with fat layer exposed; L89.899 Pressure ulcer of other site, unspecified stage; I25.5 Ischemic cardiomyopathy; I25.10 Atherosclerotic heart disease of native coronary artery without angina pectoris; I10 Essential (primary) hypertension; E78.00 Pure hypercholesterolemia, unspecified; Z79.82 Long term (current) use of aspirin; Z79.899 Other long term (current) drug therapy; I25.2 Old myocardial infarction; Z95.1 Presence of aortocoronary bypass graft
CPT/HCPCS: 11042

== ENCOUNTER 2024-09-16 14:15 | Outpatient (RCR) | payer MEDICARE, SELFPAY ==
[2024-04-01 00:32] VITALS: BP 122/61; PULSE 75; RESP 18; TEMP 35.7; BMI 40.1
[2024-09-09 14:32] VITALS: RESP 18; BMI 40.1
--- NOTE | 2024-09-09 14:51 | WC ---
PHOTO 09/09/24 RIGHT BUTTOCK
--- NOTE | 2024-09-09 14:52 | WC ---
PHOTO 09/09/24 LEFT ISCHIUM
--- NOTE | 2024-09-10 12:45 | PCM.WC.HP ---
History of Present Illness Date of Service: 09/09/24 Chief Complaint: Chronic ulcerations of the buttocks bilaterally History of Wound: This is a 79-year-old male with hydrocephalus who is wheelchair dependent. He has had pressure ulcerations of his buttocks intermittently for many years. He has been cared for at the [facility] in the past. He presented with a pressure ulceration on each buttock. It is reported that he sleeps in a recliner, and spends most of each day in a wheelchair. He has an eggcrate cushion on his chair at home, and an air loss mattress on his bed. However, he spends virtually no time in his bed. A hospital bed has been used in the past, but the patient found it unsatisfactory and now refuses to consider this as an option. It appears as though the patient has a history of noncompliance, and does not cooperate with his 's efforts to assist in his care. Most recently, the patient has been using Chamosyn to the area topically, which is a barrier protectant. The patient is not diabetic. He does not smoke. He denies the use of alcoholic beverages. Patient has had ulcerations in his lower extremities in the past, thought to be secondary to chronic dependency and venous hypertension. The patient is continent of stool and urine. [facility] Medical History (Updated 09/10/24 @ 14:[address] 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 Pressure ulcer of ischium, stage 3 Pressure ulcer of right buttock, stage 3 Decubitus ulcer, stage 3 Physical debility Stage II pressure ulcer of right buttock Stage II pressure ulcer of left buttock Decubitus skin ulcer Essential hypertension Atherosclerotic heart disease of [place] coronary artery without angina pectoris Ischemic cardiomyopathy NPH (normal pressure hydrocephalus) Chronic dementia Pure hypercholesterolemia Ulcer of left medial lower extremity, limited to breakdown of skin Edema Old myocardial infarction Home Medications Medication Instructions Recorded Last Taken Type ropinirole 3 mg tablet 3 mg PO 4X/DAY PRN restless leg(s) 08/10/15 02/07/18 05:45 History 3 MG carbidopa 25 mg-levodopa 100 mg 1 - 2 tab PO QHS TREMORS 10/10/16 Unknown History tablet aspirin 81 mg tablet,delayed 81 mg PO QDAY [facility] SpA #90 tabs 01/25/23 Unknown Rx release (Adult Aspirin Regimen) pramipexole 1.5 mg tablet,extended 1.5 mg PO QHS RESTLESS LEGS 07/31/23 Unknown History release 24 hr (Mirapex ER) tramadol 50 mg tablet 50 mg PO TID PRN pain 07/31/23 Unknown History acetaminophen 325 mg tablet 1,000 mg (3.0769 x 325 mg) PO Q6 08/06/23 Unknown Rx PRN Pain 1-5/10 Or Fever #0 tabs cyclobenzaprine 10 mg tablet 10 mg PO TID PRN Bladder Spasm 09/10/23 Unknown History gabapentin 800 mg tablet 800 mg PO TID PAIN 30 days #90 tabs 09/10/23 Unknown History losartan 25 mg tablet 25 mg PO DAILY 09/10/23 Unknown History magnesium oxide 250 mg PO DAILY 09/10/23 Unknown History niacin 500 mg capsule,extended 250 mg PO DAILY 09/10/23 Unknown History release potassium gluconate 595 mg (99 mg) 595 mg PO DAILY 09/10/23 Unknown History tablet fluticasone propionate 50 1 spray intranasal Q12H 09/26/23 Unknown History mcg/actuation nasal spray,suspension carvedilol 6.25 mg tablet 6.25 mg PO BID #180 tabs 01/02/24 Unknown Rx atorvastatin 80 mg tablet See Rx Instructions .Route 02/11/24 Unknown Rx .COMPLEX cholesterol #90 tabs trospium 20 mg tablet 20 mg PO BID 03/05/24 Unknown History furosemide 40 mg tablet (Lasix) 40 mg PO QAM PRN edema 04/09/24 Unknown History pregabalin 75 mg capsule 75 mg PO TID 09/09/24 Unknown History Allergy/AdvReac Type Severity Reaction Status Date / Time lisinopril AdvReac Other Verified 09/09/24 14:27 Family History Father Colon cancer Mother CVA (cerebral vascular accident) Hypertension Surgical History Ventriculo-peritoneal shunt status Aortocoronary bypass status (~11/30/08) History of ankle surgery History of shoulder surgery History of right hip replacement Social History Smoking Status: Never smoker alcohol intake: never substance use type: does not use caffeine: Yes (1-3 servings per day) Type: coffee what type of physical activity do you participate in: none seatbelt use: always do you feel safe at home: Yes Vital Signs Vital Signs Vital Signs: 09/09/24 14:32 Respiratory Rate 18 Oxygen Delivery Method Room Air Weight Weight: 280 lb Body Mass Index (BMI) 40.1 Physical Exam Const alert, oriented x3 and no apparent distress Constitutional Narrative: The patient's BMI is 40.2. The patient is of limited mobility. General Appearance: cooperative, comfortable and well developed Orientation / Consciousness: awake, oriented to person, oriented to place and oriented to time HEENT normocephalic and head/scalp atraumatic Head and Scalp: normal to inspection, normocephalic and atraumatic Face and Sinus: normal facial exam Nose: external nose normal External Ear: external ears normal Eyes EOMs intact bilaterally General Eye: normal appearance of both eyes Resp normal respiratory effort, normal air movement, no retractions and no use of accessory muscles Effort and Inspection: able to speak in complete sentences Extremity no calf tenderness Extremity Narrative: Swelling and edema are noted in the patient's lower extremities bilaterally. Lipodermatosclerosis is noted in the gaiter areas bilaterally. General Extremity: Negative for clubbing or cyanosis Skin Wound Narrative: Inflammatory erythema is noted involving both buttocks. These changes represent stage I pressure phenomenon. A stage III pressure ulceration is noted on the right buttock. It extends through all layers of the dermis, and into the subcutaneous tissues. There is no sign of infection or cellulitis. Ulcer margins are not well beveled. Dimensions are documented elsewhere. There is also a stage III pressure ulceration on the left ischial area, which extends through all layers of the dermis and into the subcutaneous tissues. The base of this ulceration is generally pink and healthy in appearance, with no signs of infection or cellulitis. Dimensions are documented elsewhere. Bioburden is noted at the site of both ulcerations. Neuro oriented x3 and CN's II-XII intact bilaterally Sensorium / Orientation: awake, alert, oriented to person, oriented to place and oriented to time Psych Appearance: grossly normal and appropriate Attitude: calm Activity / Motor Behavior: appropriate eye contact Speech: normal speech Mood & Affect: euthymic mood Thought Process: normal thought process Thought Content: normal thought content Attention / Concentration: attention grossly intact Debridement Note Debridement Note Wound debrided: Right buttock pressure ulceration Laterality: Right Wound Grade/Stage: Stage III Type of Debridement: Excisional debridement Anesthesia Used: 5% Lidocaine Gel Depth: Down to and including healthy tissue and in the subcutaneous layer Percentage of wound debrided: 100 Instrument Used: 3mm curette Tissue Removed: Bioburden Severity: Fat Layer Exposed Amount of bleeding with debridement: Mild Bleeding Controlled with: Compression and gauze Patient tolerated procedure: Patient tolerated procedure well Post-Debridement Measurements and Additional Note: Post-Debridement Measurements/Treatment - Nurse 1 - General Ulcer Assessment Start: 09/09/24 14:32 Freq: Status: Active Protocol: SAGE Activity Type Activity Date Activity User E-sign Co-sign Detail Recorded Client Recorded Date Recorded By Document 09/09/24 14:32 TOMMY [id number] 09/09/24 14:36 09/09/24 14:32 WC - Today's Visit Information Type of service Initial Visit Arrival Mode Wheelchair Transfer Assistance Manual,Other Transfer Assist (Other) gait belt Accompanied by Patient Identification Verified (Name & Yes ) Height and Weight Height 5 ft 10 in Weight 280 lb Weight in Pounds 280.0 lbs Body Mass Index (BMI) 40.1 BMI Classification Obese Vital Signs Respiratory Rate (12-18) 18 Respiratory rate source Observation Oxygen Delivery Method Room Air History Since Last Visit- (Skip if this is Patient's initial visit) Left Footwear Regular Shoe Right Footwear Regular Shoe Pain Scale: 0-10 Numeric Is Patient Pain Free? Yes - Nurse 1 - General Ulcer Measurement Start: 09/09/24 14:32 Freq: Status: Active Protocol: Activity Type Activity Date Activity User E-sign Co-sign Detail Recorded Client Recorded Date Recorded By Document 09/09/24 14:32 [employer] [id number] 09/09/24 14:36 09/09/24 14:32 Wound Center Nurse 1 12 lt ischium -Current Size (cm) - Length 0.1 -Current Size (cm) - Width 1.5 -Current Size (cm) - Depth 0.2 -Total Square Cm 0.15 -Date of Last Picture (Recall this 09/09/24 field) -Exudate Amt Small -Exudate Type Serosanguineous -Wound Margin Distinct, Outline Attached -Granulation Amt Large (67-100%) -Granulation Quality Anton Ruiz,Red -Texture (Alyse-wound Skin Appearance) Assessed -Moisture (Alyse-wound Skin Appearance) Assessed -Color (Alyse-wound Skin Appearance) Assessed -Temperature (Alyse-wound Skin No Abnormality Appearance) (Pt Warm) -Tenderness on Palpation (Alyse-wound No Skin Appearance) -Ulcer Cleansing Soap and Water -Foul Odor after Cleansing No -Anesthetic Used 5% Lidocaine Gel 11 rt buttock -Current Size (cm) - Length 0.3 -Current Size (cm) - Width 0.5 -Current Size (cm) - Depth 0.1 -Total Square Cm 0.15 -Date of Last Picture (Recall this 09/09/24 field) -Exudate Amt Small -Exudate Type Serosanguineous -Wound Margin Distinct, Outline Attached -Granulation Amt Large (67-100%) -Granulation Quality Anton Ruiz -Texture (Alyse-wound Skin Appearance) Assessed -Moisture (Alyse-wound Skin Appearance) Assessed,Dry/ Scaly -Color (Alyse-wound Skin Appearance) Assessed, Erythema -Temperature (Alyse-wound Skin No Abnormality Appearance) (Pt Warm) -Tenderness on Palpation (Alyse-wound No Skin Appearance) -Ulcer Cleansing Soap and Water -Foul Odor after Cleansing No -Anesthetic Used 5% Lidocaine Gel WC - Nurse 2 - General Ulcer CM Notes Start: 09/09/24 14:32 Freq: Status: Active Protocol: Activity Type Activity Date Activity User E-sign Co-sign Detail Recorded Client Recorded Date Recorded By Document 09/09/24 15:13 DS [id number] 09/09/24 15:25 DS 09/09/24 15:13 Wound Center Nurse 2 12 lt ischium -Time 15:13 -Correct Patient Yes -Correct Side, Site, Position Yes -Correct Procedure Yes -Procedure Performed Yes -Type of Procedure Debridement -Clinical Debridement Subcutaneous -Tissue Removed Subcutaneous -Post Debridement (cm) - Length 0.3 -Post Debridement (cm) - Width 1.5 -Post Debridement (cm) - Depth 0.2 -Total Square (Post) (cm) 0.45 -Area of Debridement (cm) - Length 0.3 -Area of Debridement (cm) - Width 1.5 -Total Square (Area) (cm) 0.45 -Tunneling No -Undermining/Tunneling No -Circular Undermining No -Wound/Ulcer Outcome Not Healed -Ulcer Cleansing Rinsed/ Irrigated with Saline -Foul Odor after Cleansing No -Bioengineered Tissue No -Bleeding Controlled with Pressure -Treatment Response Procedure Tolerated Well -Debridement - Subq, 1st 20sq cm No 11 rt buttock -Time 15:13 -Correct Patient Yes -Correct Side, Site, Position Yes -Correct Procedure Yes -Procedure Performed Yes -Type of Procedure Debridement -Clinical Debridement Subcutaneous -Tissue Removed Subcutaneous -Post Debridement (cm) - Length 0.3 -Post Debridement (cm) - Width 0.4 -Post Debridement (cm) - Depth 0.1 -Total Square (Post) (cm) 0.12 -Area of Debridement (cm) - Length 0.3 -Area of Debridement (cm) - Width 0.1 -Total Square (Area) (cm) 0.03 -Tunneling No -Undermining/Tunneling No -Circular Undermining No -Wound/Ulcer Outcome Not Healed -Ulcer Cleansing Rinsed/ Irrigated with Saline -Foul Odor after Cleansing No -Bioengineered Tissue No -Bleeding Controlled with Pressure -Treatment Response Procedure Tolerated Well -Debridement - Subq, 1st 20sq cm Yes Pain Scale: 0-10 Numeric Is Patient Pain Free? Yes - Nurse 3 - General Ulcer D/C NN Start: 09/09/24 14:32 Freq: Status: Active Protocol: Activity Type Activity Date Activity User E-sign Co-sign Detail Recorded Client Recorded Date Recorded By Document 09/09/24 15:31 [id number] 09/09/24 15:32 09/09/24 15:31 Wound Care Center Nurse 3 12 lt ischium -Primary Dressing Applied Aquacel Extra, Silicone Border Foam 4x4 -Aquacel Extra 1 -Silicone Border Foam 4x4 1 11 rt buttock -Primary Dressing Applied Silicone Border Foam 4x4 -Other Dressing aquacel extra -Silicone Border Foam 4x4 1 Pain Scale: 0-10 Numeric Is Patient Pain Free? Yes WC - Visit Discharge Discharge Condition Stable Ambulatory Status Walker Transportation Private Auto Medication Reconcilliation completed & No provided to patient/care provider Clinical Summary of Care Provided Yes Additional Wound Wound debrided: Left ischial pressure ulceration Laterality: Left Wound Grade/Stage: Stage III Type of Debridement: Excisional debridement Anesthesia Used: 5% Lidocaine Gel Depth: Down to and including healthy tissue and in the subcutaneous layer Percentage of wound debrided: 100 Instrument Used: 3mm curette Tissue Removed: Bioburden Severity: Fat Layer Exposed Amount of bleeding with debridement: Mild Bleeding Controlled with: Compression and gauze Patient tolerated procedure: Patient tolerated procedure well Charges/Coding Multi Select Codes Visit Charges Office Visit/Consults: 08681 OV L4 New 45 min Integumentary Integumentary CPT Codes: 40950 Cande subq tissue 20 sq cm/< Assessment/Plan Assessment/Plan (1) Pressure ulcer of right buttock, stage 3: CODE(S): L89.313 - Pressure ulcer of right buttock, stage 3 (2) Pressure ulcer of ischium, stage 3: CODE(S): L89.303 - Pressure ulcer of unspecified buttock, stage 3 QUALIFIERS: Laterality: left Qualified Code(s): L89.323 - Pressure ulcer of left buttock, stage 3 (3) Physical debility: CODE(S): R53.81 - Other malaise (4) Bilateral lower extremity edema: CODE(S): R60.0 - Localized edema (5) Essential hypertension: CODE(S): I10 - Essential (primary) hypertension (6) Atherosclerotic heart disease of [place] coronary artery without angina pectoris: CODE(S): I25.10 - Atherosclerotic heart disease of [place] coronary artery without angina pectoris QUALIFIERS: [place] vs. transplanted heart: [place] heart Qualified Code(s): I25.10 - Atherosclerotic heart disease of [place] coronary artery without angina pectoris (7) Ischemic cardiomyopathy: CODE(S): I25.5 - Ischemic cardiomyopathy (8) History of shoulder surgery: CODE(S): Z98.890 - Other specified postprocedural states (9) History of right hip replacement: CODE(S): Z96.641 - Presence of right artificial hip joint (10) Ventriculo-peritoneal shunt status: CODE(S): Z98.2 - Presence of cerebrospinal fluid drainage device (11) Aortocoronary bypass status: CODE(S): Z95.1 - Presence of aortocoronary bypass graft (12) History of ankle surgery: CODE(S): Z98.890 - Other specified postprocedural states (13) Lipodermatosclerosis of both lower extremities: CODE(S): M79.3 - Panniculitis, unspecified (14) Idiopathic normal pressure hydrocephalus: CODE(S): G91.2 - (Idiopathic) normal pressure hydrocephalus PLAN: Plan This is a 79-year-old male who has been a former patient at the [facility] in treatment for pressure ulcerations of the buttocks. The patient is wheelchair dependent due to hydrocephalus and related issues. He presented with stage III pressure ulcerations of the right buttock and the left ischium. The patient sleeps in a recliner, and spends the preponderance of his day in a sitting position. The pressure ulcerations have waxed and waned for many years. Most recently, the patient and his have been using Chamosyn topically. The patient claims to have a good appetite. He does not smoke and he is not diabetic. As has been discussed with the patient and his in detail, offloading measures are to be implemented. The means by which this is to be achieved have been thoroughly explained. Because the patient's bedroom is on the upper level of his home, he is unable to access his bed. A hospital bed has been offered as an option, but the patient has refused. Patient has been advised to continue consuming a healthy diet, and to use supplements as necessary. We are to implement the use of moistened Aquacel Extra to each ulceration on a daily basis. The patient and his have been instructed in appropriate means of application. [place] SAP will be applied over top. Chamosyn is to be continued topically on the intact skin as a barrier protectant. Because the patient has swelling and edema in his lower extremities, leg elevation has been recommended as much as possible. Prolonged idle sitting has been discouraged. The patient is to return in 1 week for reevaluation. Total time: 48 minutes
[2024-09-16 14:27] VITALS: BP 170/83; PULSE 75; RESP 18; TEMP 36.4; BMI 40.1
--- NOTE | 2024-09-18 13:08 | HP.PCM_ITS ---
History of Present Illness Date of Service: 09/16/24 Chief Complaint: Chronic ulcerations of the buttocks bilaterally History of Wound: This is a 79-year-old male with hydrocephalus who is wheelchair dependent. He has had pressure ulcerations of his buttocks intermittently for many years. He has been cared for at the [facility] in the past. He presented with a pressure ulceration on each buttock. It is reported that he sleeps in a recliner, and spends most of each day in a wheelchair. He has an eggcrate cushion on his chair at home, and an air loss mattress on his bed. However, he spends virtually no time in his bed. A hospital bed has been used in the past, but the patient found it unsatisfactory and now refuses to consider this as an option. It appears as though the patient has a history of noncompliance, and does not cooperate with his 's efforts to assist in his care. Most recently, the patient has been using Chamosyn to the area topically, which is a barrier protectant. The patient is not diabetic. He does not smoke. He denies the use of alcoholic beverages. Patient has had ulcerations in his lower extremities in the past, thought to be secondary to chronic dependency and venous hypertension. The patient is continent of stool and urine. 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 Pressure ulcer of ischium, stage 3 Pressure ulcer of right buttock, stage 3 Decubitus ulcer, stage 3 Physical debility Stage II pressure ulcer of right buttock Stage II pressure ulcer of left buttock Decubitus skin ulcer Essential hypertension Atherosclerotic heart disease of [place] coronary artery without angina pectoris Ischemic cardiomyopathy NPH (normal pressure hydrocephalus) Chronic dementia Pure hypercholesterolemia Ulcer of left medial lower extremity, limited to breakdown of skin Edema Old myocardial infarction Home Medications Medication Instructions Recorded Last Taken Type ropinirole 3 mg tablet 3 mg PO 4X/DAY PRN restless leg(s) 08/10/15 02/07/18 05:45 History 3 MG carbidopa 25 mg-levodopa 100 mg 1 - 2 tab PO QHS TREMO RS 10/10/16 Unknown History tablet aspirin 81 mg tablet,delayed 81 mg PO QDAY heart healt h #90 tabs 01/25/23 Unknown Rx release (Adult Aspirin Regimen) pramipexole 1.5 mg tablet,extended 1.5 mg PO QHS RESTL ESS LEGS 07/31/23 Unknown History release 24 hr (Mirapex ER) tramadol 50 mg tablet 50 mg PO TID PRN pain Unknown History acetaminophen 325 mg tablet 1,000 mg (3.0769 x 325 mg) PO Q6 08/06/23 Unknown Rx PRN Pain 1-5/10 Or Fever #0 tabs cyclobenzaprine 10 mg tablet 10 mg PO TID PRN Bladder Spasm 09/10/23 Unknown History gabapentin 800 mg tablet 800 mg PO TID PAIN 30 days # 90 tabs 09/10/23 Unknown History losartan 25 mg tablet 25 mg PO DAILY 09/10/23 Unkn own History magnesium oxide 250 mg PO DAILY 09/10/23 Unk nown History niacin 500 mg capsule,extended 250 mg PO DAILY 4 Unknown History release potassium gluconate 595 mg (99 mg) 595 mg PO DAILY 02/22 Unknown History tablet fluticasone propionate 50 1 spray intranasal Q12H 08/31 10/22 Unknown History mcg/actuation nasal spray,suspension carvedilol 6.25 mg tablet 6.25 mg PO BID #180 tabs 06/22 Unknown Rx atorvastatin 80 mg tablet See Rx Instructions .Route 1 04/12/23 Unknown Rx .COMPLEX cholesterol #90 tabs trospium 20 mg tablet 20 mg PO BID 03/05/24 Unknow n History furosemide 40 mg tablet (Lasix) 40 mg PO QAM PRN edema 04/09/24 Unknown History pregabalin 75 mg capsule 75 mg PO TID 09/09/24 Unknow n History Allergy/AdvReac Type Severity Reaction Status Date / Time lisinopril AdvReac Other Verified 09/09/24 14:27 Family History Father Colon cancer Mother CVA (cerebral vascular accident) Hypertension Surgical History Ventriculo-peritoneal shunt status Aortocoronary bypass status (~11/30/08) History of ankle surgery History of shoulder surgery History of right hip replacement Social History Smoking Status: Never smoker alcohol intake: never substance use type: does not use caffeine: Yes (1-3 servings per day) Type: coffee what type of physical activity do you participate in: none seatbelt use: always do you feel safe at home: Yes Vital Signs Vital Signs Vital Signs: Weight Weight: 280 lb Body Mass Index (BMI) 40.1 Physical Exam Const alert, oriented x3 and no apparent distress Constitutional Narrative: The patient's BMI is 40.2. The patient is of limited mobility. General Appearance: cooperative, comfortable and well developed Orientation / Consciousness: awake, oriented to person, oriented to place and oriented to time HEENT normocephalic and head/scalp atraumatic Head and Scalp: normal to inspection, normocephalic and atraumatic Face and Sinus: normal facial exam Nose: external nose normal External Ear: external ears normal Eyes EOMs intact bilaterally General Eye: normal appearance of both eyes Resp normal respiratory effort, normal air movement, no retractions and no use of accessory muscles Effort and Inspection: able to speak in complete sentences Extremity no calf tenderness Extremity Narrative: Swelling and edema are noted in the patient's lower extremities bilaterally. Lipodermatosclerosis is noted in the gaiter areas bilaterally. General Extremity: Negative for clubbing or cyanosis Skin Wound Narrative: Inflammatory erythema is noted involving both buttocks. These changes represent stage I pressure phenomenon. A stage III pressure ulceration is noted on the right buttock. It extends through all layers of the dermis, and into the subcutaneous tissues. There is no sign of infection or cellulitis. Ulcer margins are not well beveled. Dimensions are documented elsewhere. There is also a stage III pressure ulceration on the left ischial area, which extends through all layers of the dermis and into the subcutaneous tissues. The base of this ulceration is generally pink and healthy in appearance, with no signs of infection or cellulitis. Dimensions are documented elsewhere. Bioburden is noted at the site of both ulcerations. There is also noted to be areas of epithelial desquamation and sloughing in the areas about the ulcerations. Neuro oriented x3 and CN's II-XII intact bilaterally Sensorium / Orientation: awake, alert, oriented to person, oriented to place and oriented to time Psych Appearance: grossly normal and appropriate Attitude: calm Activity / Motor Behavior: appropriate eye contact Speech: normal speech Mood & Affect: euthymic mood Thought Process: normal thought process Thought Content: normal thought content Attention / Concentration: attention grossly intact Debridement Note Debridement Note Wound debrided: Right buttock pressure ulceration Laterality: Right Wound Grade/Stage: Stage III Type of Debridement: Excisional debridement Anesthesia Used: 5% Lidocaine Gel and Cetacaine Depth: Down to and including healthy tissue and in the subcutaneous layer Percentage of wound debrided: 100 Instrument Used: 3mm curette Tissue Removed: Bioburden Severity: Fat Layer Exposed Amount of bleeding with debridement: Mild Bleeding Controlled with: Compression and gauze Patient tolerated procedure: Patient tolerated procedure well Post-Debridement Measurements and Additional Note: Post-Debridement Measurements/Treatment - Nurse 1 - General Ulcer Assessment Start: 09/09/24 14:32 Freq: Status: Active Protocol: SAGE Activity Type Activity Date Activity User E-sign Co-sign Detail Recorded Client Recorded Date Recorded By Document 09/09/24 14:32 KW [id number] 09/09/24 14:36 KW Document 09/16/24 14:27 DL [id number] 09/16/24 14:37 DL 09/09/24 09/16/24 14:32 14:27 - Today's Visit Information Type of service Initial Visit Follow-up Visit (Physician/TEAM COORDINATOR ) Arrival Mode Wheelchair Wheelchair Transfer Assistance Manual,Other Manual Transfer Assist (Other) gait belt X3 Accompanied by Patient Identification Verified (Name & Yes Yes ) Patient Requires Transmission-Based No Precautions Height and Weight Height 5 ft 10 in Weight 280 lb Weight in Pounds 280.0 lbs Body Mass Index (BMI) 40.1 40.1 BMI Classification Obese Obese Vital Signs Temperature (97.8 F-99.1 F) 97.6 F L Temperature Source Temporal Pulse Rate (60-100) 75 Pulse Location Monitor Respiratory Rate (12-18) 18 18 Respiratory rate source Observation Observation Oxygen Delivery Method Room Air Blood Pressure (90/60-120/80) 170/83 H Blood Pressure Mean 112 Source Monitor History Since Last Visit- (Skip if this is Patient's initial visit) Have you changed medications since your No last visit? Any new allergies or adverse reactions No Had a fall/change in ADL's that may No increase risk of falls Signs or symptoms of abuse and/or No neglect since last visit Have you been in the hospital since your No last visit? Has dressing in place as prescribed Yes Has compression in place as prescribed N/A Has offloadiing in place as prescribed Yes Experienced any changes in pain level or No management Left Footwear Regular Shoe Right Footwear Regular Shoe Pain Scale: 0-10 Numeric Is Patient Pain Free? Yes Yes WC - Nurse 1 - General Ulcer Measurement Start: 09/09/24 14:32 Freq: Status: Active Protocol: Activity Type Activity Date Activity User E-sign Co-sign Detail Recorded Client Recorded Date Recorded By Document 09/09/24 14:32 KW [id number] 09/09/24 14:36 KW Document 09/16/24 14:27 DL [id number] 09/16/24 14:37 DL 09/09/24 09/16/24 14:32 14:27 Wound Center Nurse 1 12 lt ischium -Current Size (cm) - Length 0.1 0.1 -Current Size (cm) - Width 1.5 1.2 -Current Size (cm) - Depth 0.2 0.2 -Total Square Cm 0.15 0.12 -Date of Last Picture (Recall this 09/09/24 field) -Exudate Amt Small Small -Exudate Type Serosanguineous Serosanguineous -Wound Margin Distinct, Distinct, Outline Outline Attached Attached -Granulation Amt Large (67-100%) Small (1-33%) -Granulation Quality [place],Red Red -Necrosis Amt None Present (0 %) -Structure Exposed N/A -Texture (Alyse-wound Skin Appearance) Assessed Scarring -Moisture (Alyse-wound Skin Appearance) Assessed Dry/Scaly -Color (Alyse-wound Skin Appearance) Assessed No Abnormality -Temperature (Alyse-wound Skin No Abnormality No Abnormality Appearance) (Pt Warm) (Pt Warm) -Tenderness on Palpation (Alyse-wound No No Skin Appearance) -Ulcer Cleansing Soap and Water Rinsed/ Irrigated with Saline -Foul Odor after Cleansing No No -Anesthetic Used 5% Lidocaine 5% Lidocaine Gel Gel 11 rt buttock -Current Size (cm) - Length 0.3 0.9 -Current Size (cm) - Width 0.5 0.6 -Current Size (cm) - Depth 0.1 0.1 -Total Square Cm 0.15 0.54 -Date of Last Picture (Recall this 09/09/24 field) -Exudate Amt Small Small -Exudate Type Serosanguineous -Wound Margin Distinct, Distinct, Outline Outline Attached Attached -Granulation Amt Large (67-100%) Small (1-33%) -Granulation Quality [place] -Necrosis Amt None Present (0 %) -Structure Exposed N/A -Texture (Alyse-wound Skin Appearance) Assessed Scarring -Moisture (Alyse-wound Skin Appearance) Assessed,Dry/ Dry/Scaly Scaly -Color (Alyse-wound Skin Appearance) Assessed, No Abnormality Erythema -Temperature (Alyse-wound Skin No Abnormality No Abnormality Appearance) (Pt Warm) (Pt Warm) -Tenderness on Palpation (Alyse-wound No No Skin Appearance) -Ulcer Cleansing Soap and Water Soap and Water -Foul Odor after Cleansing No No -Anesthetic Used 5% Lidocaine 5% Lidocaine Gel Gel WC - Nurse 2 - General Ulcer CM Notes Start: 09/09/24 14:32 Freq: Status: Active Protocol: Activity Type Activity Date Activity User E-sign Co-sign Detail Recorded Client Recorded Date Recorded By Document 09/09/24 15:13 DS [id number] 09/09/24 15:25 DS Document 09/16/24 14:57 [id number] 09/16/24 15:05 09/09/24 09/16/24 15:13 14:57 Wound Center Nurse 2 12 lt ischium -Time 15:13 14:57 -Correct Patient Yes Yes -Correct Side, Site, Position Yes Yes -Correct Procedure Yes Yes -Procedure Performed Yes Yes -Type of Procedure Debridement Debridement -Clinical Debridement Subcutaneous Subcutaneous -Tissue Removed Subcutaneous Subcutaneous -Post Debridement (cm) - Length 0.3 0.5 -Post Debridement (cm) - Width 1.5 1.1 -Post Debridement (cm) - Depth 0.2 0.2 -Total Square (Post) (cm) 0.45 0.55 -Area of Debridement (cm) - Length 0.3 0.5 -Area of Debridement (cm) - Width 1.5 1.1 -Total Square (Area) (cm) 0.45 0.55 -Tunneling No No -Undermining/Tunneling No No -Circular Undermining No No -Wound/Ulcer Outcome Not Healed Not Healed -Ulcer Cleansing Rinsed/ Not Cleansed Irrigated with Saline -Foul Odor after Cleansing No No -Bioengineered Tissue No No -Bleeding Controlled with Pressure Pressure -Treatment Response Procedure Procedure Tolerated Well Tolerated Well -Offloading No -Debridement - Subq, 1st 20sq cm No Yes 11 rt buttock -Time 15:13 14:58 -Correct Patient Yes Yes -Correct Side, Site, Position Yes Yes -Correct Procedure Yes Yes -Procedure Performed Yes Yes -Type of Procedure Debridement Debridement -Clinical Debridement Subcutaneous Subcutaneous -Tissue Removed Subcutaneous Subcutaneous -Post Debridement (cm) - Length 0.3 0.5 -Post Debridement (cm) - Width 0.4 1.0 -Post Debridement (cm) - Depth 0.1 0.1 -Total Square (Post) (cm) 0.12 0.50 -Area of Debridement (cm) - Length 0.3 0.5 -Area of Debridement (cm) - Width 0.1 1.0 -Total Square (Area) (cm) 0.03 0.50 -Tunneling No No -Undermining/Tunneling No No -Circular Undermining No No -Wound/Ulcer Outcome Not Healed Not Healed -Ulcer Cleansing Rinsed/ Rinsed/ Irrigated with Irrigated with Saline Saline -Foul Odor after Cleansing No No -Bioengineered Tissue No No -Bleeding Controlled with Pressure Pressure -Treatment Response Procedure Procedure Tolerated Well Tolerated Well -Offloading No -Debridement - Subq, 1st 20sq cm Yes No Pain Scale: 0-10 Numeric Is Patient Pain Free? Yes Yes - Nurse 3 - General Ulcer D/C NN Start: 09/09/24 14:32 Freq: Status: Active Protocol: Activity Type Activity Date Activity User E-sign Co-sign Detail Recorded Client Recorded Date Recorded By Document 09/09/24 15:31 KW [id number] 09/09/24 15:32 KW Document 09/16/24 15:13 KW [id number] 09/16/24 15:14 KW 09/09/24 09/16/24 15:31 15:13 Wound Care Center Nurse 3 12 lt ischium -Ulcer Cleansing Rinsed/ Irrigated with Saline -Primary Dressing Applied Aquacel Extra, Aquacel Extra, Silicone Border Silicone Border Foam 4x4 Foam 4x4 -Aquacel Extra 1 1 -Silicone Border Foam 4x4 1 1 11 rt buttock -Primary Dressing Applied Silicone Border Aquacel Extra, Foam 4x4 Silicone Border Foam 4x4 -Other Dressing aquacel extra -Aquacel Extra 1 -Silicone Border Foam 4x4 1 1 Pain Scale: 0-10 Numeric Is Patient Pain Free? Yes Yes WC - Visit Discharge Discharge Condition Stable Stable Ambulatory Status Walker Walker Transportation Private Auto Private Auto Medication Reconcilliation completed & No No provided to patient/care provider Clinical Summary of Care Provided Yes Yes Additional Wound Wound debrided: Left ischial pressure ulceration Laterality: Left Wound Grade/Stage: Stage III Type of Debridement: Excisional debridement Anesthesia Used: 5% Lidocaine Gel and Cetacaine Depth: Down to and including healthy tissue and in the subcutaneous layer Percentage of wound debrided: 100 Instrument Used: 3mm curette Tissue Removed: Bioburden Severity: Fat Layer Exposed Amount of bleeding with debridement: Mild Bleeding Controlled with: Compression and gauze Patient tolerated procedure: Patient tolerated procedure well Charges/Coding Procedures Integumentary [id number]: [id number] Cande subq tissue 20 sq cm/< Assessment/Plan Assessment/Plan (1) Pressure ulcer of right buttock, stage 3: CODE(S): L89.313 - Pressure ulcer of right buttock, stage 3 (2) Pressure ulcer of ischium, stage 3: CODE(S): L89.303 - Pressure ulcer of unspecified buttock, stage 3 QUALIFIERS: Laterality: left Qualified Code(s): L89.323 - Pressure ulcer of left buttock, stage 3 (3) Physical debility: CODE(S): R53.81 - Other malaise (4) Bilateral lower extremity edema: CODE(S): R60.0 - Localized edema (5) Essential hypertension: CODE(S): I10 - Essential (primary) hypertension (6) Atherosclerotic heart disease of [place] coronary artery without angina pectoris: CODE(S): I25.10 - Atherosclerotic heart disease of [place] coronary artery without angina pectoris QUALIFIERS: [place] vs. transplanted heart: [place] heart Qualified Code(s): I25.10 - Atherosclerotic heart disease of [place] coronary artery without angina pectoris (7) Ischemic cardiomyopathy: CODE(S): I25.5 - Ischemic cardiomyopathy (8) History of shoulder surgery: CODE(S): Z98.890 - Other specified postprocedural states (9) History of right hip replacement: CODE(S): Z96.641 - Presence of right artificial hip joint (10) Ventriculo-peritoneal shunt status: CODE(S): Z98.2 - Presence of cerebrospinal fluid drainage device (11) Aortocoronary bypass status: CODE(S): Z95.1 - Presence of aortocoronary bypass graft (12) History of ankle surgery: CODE(S): Z98.890 - Other specified postprocedural states (13) Lipodermatosclerosis of both lower extremities: CODE(S): M79.3 - Panniculitis, unspecified (14) Idiopathic normal pressure hydrocephalus: CODE(S): G91.2 - (Idiopathic) normal pressure hydrocephalus PLAN: Plan This is a 79-year-old male who has been a former patient at the [facility] in treatment for pressure ulcerations of the buttocks. The patient is wheelchair dependent due to hydrocephalus and related issues. He presented with stage III pressure ulcerations of the right buttock and the left ischium. The patient sleeps in a recliner, and spends the preponderance of his day in a sitting position. The pressure ulcerations have waxed and waned for many years. Most recently, the patient and his had been using Chamosyn topically. The patient claims to have a good appetite. He does not smoke and he is not diabetic. As has been discussed with the patient and his in detail, offloading measures are to be implemented. The means by which this is to be achieved have been thoroughly explained. Because the patient's bedroom is on the upper level of his home, he is unable to access his bed. A hospital bed has been offered as an option, but the patient has refused. According to the patient's , at the bedside, he has been largely noncompliant with offloading recommendations. The patient has been advised to continue consuming a healthy diet, and to use supplements as necessary. We are to continue the use of moistened Aquacel Extra to each ulceration on a daily basis. The patient and his have been instructed in appropriate means of application. [place] SAP will be applied over top. Because of the desquamation and sloughing of epithelial layers near the pressure ulcerations, AmLactin or other skin moisturizer has been recommended for use topically. Because the patient has swelling and edema in his lower extremities, leg elevation has been recommended as much as possible. Prolonged idle sitting has been discouraged. The patient is to return in 1 week for reevaluation. Total time: 28 minutes
== END 2024-09-28 23:59 | disposition home or self-care (01) ==
LOC: WC 14:15
PROVIDERS: PCP Family Medicine; Referring Provider Family Medicine; Visit Provider Surgery
DX: L89.313 Pressure ulcer of right buttock, stage 3 (principal); L89.323 Pressure ulcer of left buttock, stage 3; G91.2 (Idiopathic) normal pressure hydrocephalus; I25.10 Atherosclerotic heart disease of native coronary artery without angina pectoris; I25.5 Ischemic cardiomyopathy; I10 Essential (primary) hypertension; E78.00 Pure hypercholesterolemia, unspecified; R60.0 Localized edema; M79.3 Panniculitis, unspecified; R53.81 Other malaise; I25.2 Old myocardial infarction; Z99.3 Dependence on wheelchair; Z79.82 Long term (current) use of aspirin; Z79.899 Other long term (current) drug therapy; Z96.641 Presence of right artificial hip joint; Z98.2 Presence of cerebrospinal fluid drainage device; Z95.1 Presence of aortocoronary bypass graft
CPT/HCPCS: 11042; 99213; G0463